=== PATIENT | female | born 1995 | race Hispanic/Latino ===

== ENCOUNTER 2020-11-19 07:11 | Emergency (ER) | payer OTHER ==
--- OUTSIDE RECORDS SUMMARY | 2020-11-19 07:14 | XMS REPORT | Continuity of Care Document ---
:1995 Author Organization [facility] t Address [address] [place] [address] Care Team Providers Name Role Phone DR Jett MCPHERSON Attending Clinician Unavailable Gerard Hagen Attending Clinician DR Nain HI Attending Clinician Unavailable DR Jett MCPHERSON Admitting Clinician Unavailable DR Nain HI Admitting Clinician Unavailable Problems This patient has no known problems. Allergies, Adverse Reactions, Alerts This patient has no known allergies or adverse reactions. Medications This patient has no known medications. Procedures This patient has no known procedures. Encounters Start End Encounter Admission Attending Care Care Encounter Source Date/Time Date/Time Type Type Clinicians Facility Department ID 2019-09-16 Inpatient C RAFAEL MCPHERSON [facility] [id number] [place] 07:00:00 [facility] 2019-09-19 2019-09-19 Emergency Ted Staples [facility] [id number] 19:55:06 22:07:00 Gerard Perez [id number] [place] [id number] [place] [id number] 2019-05-22 2019-05-21 Inpatient E [facility] MED [id number] [facility] 02:19:00 22:00:00 2019-05-16 2019-05-16 Outpatient [facility] [id number] [facility] 08:51:00 08:51:00 2019-04-16 2019-04-17 Emergency E RAFAEL HI [facility] [id number] [place] 23:25:00 02:35:00 [facility] Results Test Description Test Time Test Comments Results Result [facility] e Comments U/S PELVIS*WW* 2019-04-17 AFTER HOURS SERVICE ON: 02:28:09 04/17/2019 2:23 AMPelvic UltrasoundLocation Code [id number]: [id number]: Disorder of ovaryTRANSABDOMINAL ScanTechnique: Longitudinal and transverse real-time jennings scale, Doppler spectralanalysis and Doppler color flow evaluation was performed using a dedicatedtransducer. Transabdominal pelvis imaging is inherently limited for anatomicdetail without transvaginal imaging. Findings:The uterus measures 7 x 4 x 4 cm. Endometrial stripe measures 6 mm. Right ovarymeasures 66 x 43 x 65 mm with a 58 x 38 x 60 mm anechoic cyst. Left ovarymeasures 30 x 17 x 30 mm. Due to size of the right ovarian cyst, Dopplerevaluation was somewhat limited. Adequate ovarian flow with arterial inflow andvenous outflow noted. There is no free fluid. Impression:Anechoic 6.0 cm right ovarian cyst. This is likely benign. Follow-up isrecommended in [address] ABDOMEN AND 2019-04-17 CT SCAN OF THE ABDOMEN PELVIS WITHOUT 00:41:32 AND PELVIS WITHOUT CONTRAST *WW* CONTRASTDictation Location: [id number] HISTORY: 23-year-old with right upper quadrant painTECHNIQUE: Helical CT of the abdomen and pelvis was performed without IV ororal contrast without complication. Coronal and Sagittal reconstructions wereobtained. This exam was performed according to our departmental dose -optimizationprogram, which includes automatic exposure control, adjustment of mA and/or kVaccording to patient size and/or use of iterative reconstruction technique.DLP: 1219 mGY*cmFINDINGS:The visualized lung bases are clear. No evidence of pleural effusion. Liveris normal in size without intrahepatic biliary dilatation or focal mass. Thegallbladder is surgically absent. The spleen, and adrenal glands are normal. There is no evidence of hydronephrosis, solid renal mass or obstructingkidney stone. The pancreas is unremarkable without evidence of pancreatic mass,atrophy, calcification. There is no abdominal free fluid or adenopathy.The bowel is unremarkable without wall thickening or dilatation. There is noevidence of appendicitis, diverticulitis, colitis or bowel obstruction. Normalair-filled appendix is seen on coronal image 26.In the pelvis, there is no free fluid or adenopathy present. The bladder andureters are normal. There is a 4.5 cm cystic mass at the edge of the rightovary. Uterus and left ovary are unremarkable.The vascular, bony and muscular structures are unremarkable. IMPRESSION:4.5 cm right adnexal cystic mass is present. Pelvic ultrasound is recommended. AMYLASE AND LIPASE *WW* 2019-04-17 00:01:00 Test Item Value Reference Range Interpretation Comme nts AMYLASE (test code = 10A) 32 U/L 28-100 LIPASE (test code = 60A) 40 IU/L 73-393 L COMPREHENSIVE METABOLIC MAY *WW*2019-04-17 00:01:00 Test Item Value Reference Range Interpretation Comments GLUCOSE (test code = 06D) 89 mg/dL 75-100 SODIUM (test code = 01A) 138 mmol/L 136-145 POTASSIUM (test code = 01B) 3.6 mmol/L 3.6-5.1 CHLORIDE (test code = 04A) 108 mmol/L 98-107 H CO2 (test code = 02A) 24 mmol/L 22-32 ANION GAP (test code = ANG) 9.6 mmol/L BUN (test code = 05D) 7 mg/dL 7-18 CREATININE (test code = 03E) 0.7 mg/dL 0.4-1.1 BUN/CREA (test code = BCR) 10 12-20 L CALCIUM (test code = 09D) 8.5 mg/dL 8.3-9.5 BILI TOTAL (test code = 11A) 0.5 mg/dL 0.2-1.0 PROTEIN (test code = 07D) 7.6 g/dL 6.4-8.2 ALBUMIN (test code = 08D) 4.0 g/dL 3.5-4.8 GLOBULIN (test code = GLB) 3.6 g/dL 1.5-3.8 ALB/GLOB (test code = AGRR) 1.1 1.0-2.6 ALK PHOS (test code = 35A) 66 IU/L 42-121 AST (test code = 30A) 15 IU/L <=42 ALT (test code = 31A) 40 IU/L <=78 URINE MONOCLONAL *WW*2019-04-16 23:57:00 Test Item Value Reference Range Interpretation Comments PREG UR (test code = PGU) NEGATIVE NEGATIVE URINALYSIS 2019-04-16 23:57:00 Test Item Value Reference Range Interpretation Comments COLOR (test code = COLU) YELLOW YELLOW CLARITY (test code = CLA) CLEAR CLEAR GLUCOSE UR (test code = UA GLUCOSE) NEGATIVE NEGATIVE BILI UR (test code = BILE) NEGATIVE NEGATIVE KETONES UR (test code = SÁNCHEZ) NEGATIVE NEGATIVE SP GRAVITY (test code = SPGR) 1.025 1.005-1.030 PH UR (test code = PH) 6.0 4.5-8.0 PROTEIN UR (test code = PU) NEGATIVE NEGATIVE UROBIL UR (test code = UROQ) 1.0 EU/dL 0.2-1.0 NITRITE UR (test code = NITRITE) NEGATIVE NEGATIVE BLOOD UR (test code = UA BLOOD) NEGATIVE NEGATIVE LEUK ES UR (test code = LEUK) NEGATIVE NEGATIVE AUAM (test code = WAUAM) NO NO CBC (INCLUDES AUTOMATED DIFFERENTIAL)*[id number] 23:48:00 Test Item Value Reference Range Interpretation Comments WBC (test code = WBC) 7.9 10\S\3/uL 4.5-11.0 RBC (test code = RBC) 4.36 10\S\6/uL 4.30-5.70 HGB (test code = HBG) 12.8 g/dL 12.0-15.5 HCT (test code = HCT) 38.5 % 35.0-44.0 MCV (test code = MCV) 88.3 fL 81.0-99.0 MCH (test code = MCH) 29.4 pg 27.0-31.0 MCHC (test code = MCHC) 33.2 g/dL 32.0-36.0 RDW (test code = RDW) 12.4 % 11.5-14.5 PLT (test code = PLT) 280 10\S\3/uL 130-400 MPV (test code = MPV) 10.1 fL 9.4-12.4 NEUTROP # (test code = NE#) 4.8 10\S\3/uL 1.6-8.0 LYMPH # (test code = LY#) 2.2 10\S\3/uL 1.1-3.5 MONOCYTE # (test code = MO#) 0.6 10\S\3/uL 0.0-1.1 EOSINOPH # (test code = EO#) 0.2 10\S\3/uL 0.0-0.7 BASOPHIL # (test code = BA#) 0.1 10\S\3/uL 0.0-0.3 IG # (test code = IG#) 0.03 10\S\3/uL 0.00-0.06 NRBC # (test code = NRBC#) 0.00 10\S\3/uL 0.00-0.01 NEUTROPH % (test code = NE%) 60.4 % 35.0-73.0 LYMPH % (test code = LY%) 28.2 % 20.0-55.0 MONO % (test code = MO%) 7.6 % 2.5-10.0 EOSINOPH % (test code = EO%) 2.8 % 0.0-5.0 BASOPHIL % (test code = BA%) 0.6 % 0.0-2.0 IG % (test code = IG%) 0.4 % 0.0-0.8 NRBC% (test code = NRBC%) 0.0 % 0.0-0.2 MANDIFF (test code = WMDIFF) NO NO RBC MORPH (test code = NORMAL WRBCMOR)
--- NOTE | 2020-11-19 08:44 | EDPHYS ---
Physician Documentation [facility] Name: Omaira Richards Age: 25 yrs Sex: Female : 1995 Arrival Date: 11/19/2020 Time: 07:12 Bed 24 Private MD: ED Physician Ted Michelle HPI: 11/19 07:45 This 25 yrs old Female presents to ER via Unassigned with complaints of Fever, kdr Vomiting, Sore Throat. 07:45 The patient reports fever, not measured (subjective). Onset: The symptoms/episode kdr began/occurred gradually, 2 day(s) ago. Associated signs and symptoms: Pertinent positives: headache, nausea, sore throat, vomiting. Severity of symptoms: At their worst the symptoms were mild moderate just prior to arrival, in the emergency department the symptoms have improved mildly. The patient has not experienced similar symptoms in the past. The patient has not recently seen a physician. She has been feeling poorly for the last few days. She has not had any measured fever. She has had some nausea and vomiting which she describes as bilious. She has otherwise been stable.. 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 - Social history:: Smoking status: Reported history of juuling and/or vaping. ROS: 07:45 Constitutional: Negative for objective fever, chills, and weight loss -she has had kdr subjective fever and chills Eyes: Negative for injury, pain, redness, and discharge, ENT: Negative for injury, pain, and discharge, except for sore throat Neck: Negative for injury, pain, and swelling, Cardiovascular: Negative for chest pain, palpitations, and edema, Respiratory: Negative for shortness of breath, cough, wheezing, and pleuritic chest pain, Back: Negative for injury and pain, : Negative for injury, bleeding, discharge, and swelling, MS/Extremity: Negative for injury and deformity, Skin: Negative for injury, rash, and discoloration, Neuro: Negative for headache, weakness, numbness, tingling, and seizure activity. Psych: Negative for depression, anxiety, suicide ideation, homicidal ideation, and hallucinations, Allergy/Immunology: Negative for hives, rash, and allergies, Endocrine: Negative for neck swelling, polydipsia, polyuria, polyphagia, and marked weight changes, Hematologic/Lymphatic: Negative for swollen nodes, abnormal bleeding, and unusual bruising. 07:45 Abdomen/GI: Positive for nausea and vomiting, Negative for diarrhea, constipation, abdominal cramps, abdominal distension, anorexia, dysphagia, hematemesis, black/tarry stool, rectal pain, rectal bleeding, bowel incontinence, flatulence. Exam: 07:45 Constitutional: This is a well developed, well nourished patient who is awake, alert, kdr and in no acute distress. Head/Face: Normocephalic, atraumatic. Eyes: Pupils equal round and reactive to light, extra-ocular motions intact. Lids and lashes normal. Conjunctiva and sclera are non-icteric and not injected. Cornea within normal limits. Periorbital areas with no swelling, redness, or edema. ENT: Nares patent. No nasal discharge, no septal abnormalities noted. Tympanic membranes are normal and external auditory canals are clear. Oropharynx with no redness, swelling, or masses, exudates, or evidence of obstruction, uvula midline. Mucous membranes moist. Neck: Trachea midline, no thyromegaly or masses palpated, and no cervical lymphadenopathy. Supple, full range of motion without nuchal rigidity, or vertebral point tenderness. No Meningismus. Chest/axilla: Normal chest wall appearance and motion. Nontender with no deformity. No lesions are appreciated. Cardiovascular: Regular rate and rhythm with a normal S1 and S2. No gallops, murmurs, or rubs. Normal PMI, no JVD. No pulse deficits. Respiratory: Lungs have equal breath sounds bilaterally, clear to auscultation and percussion. No rales, rhonchi or wheezes noted. No increased work of breathing, no retractions or nasal flaring. Abdomen/GI: Soft, non-tender, with normal bowel sounds. No distension or tympany. No guarding or rebound. No evidence of tenderness throughout. Back: No spinal tenderness. No costovertebral tenderness. Full range of motion. Skin: Warm, dry with normal turgor. Normal color with no rashes, no lesions, and no evidence of cellulitis. MS/ Extremity: Pulses equal, no cyanosis. Neurovascular intact. Full, normal range of motion. Neuro: Awake and alert, GCS 15, oriented to person, place, time, and situation. Cranial nerves II-XII grossly intact. Motor strength 5/5 in all extremities. Sensory grossly intact. Cerebellar exam normal. Normal gait. Psych: Awake, alert, with orientation to person, place and time. Behavior, mood, and affect are within normal limits. Vital Signs: 08:11 BP 143 / 93; Pulse 106; Resp 14; Temp 98.9(O); Pulse Ox 100% on R/A; Weight 112.04 kg; ss Height 5 ft. 9 in. (175.26 cm); Pain 7/10; 08:11 Body Mass Index 36.48 (112.04 kg, 175.26 cm) ss MDM: 07:45 Data reviewed: vital signs, nurses notes, lab test result(s). Counseling: I had a kdr detailed discussion with the patient and/or guardian regarding: the historical points, exam findings, and any diagnostic results supporting the discharge/admit diagnosis, lab results, the need for outpatient follow up. 08:44 Patient medically screened. kdr 11/19 08:17 Order name: Influenza Screen (A ; Complete Time: 09:37 EDMS Administered Medications: No medications were administered Disposition Summary: 11/19/20 08:44 Discharge Ordered Location: Home kdr Problem: new kdr Symptoms: have improved kdr Condition: Stable kdr Diagnosis - Viral syndrome, nausea, vomiting, pharyngitis kdr Followup: kdr - With: Private Physician - When: 2 - 3 days - Reason: If symptoms return, Further diagnostic work-up, Recheck today's complaints, Continuance of care, Re-evaluation by your physician Discharge Instructions: - Discharge Summary Sheet kdr - Nausea and Vomiting, Adult, Rhal-ao-Eqvc kdr - COVID-19 Frequently Asked Questions kdr - Viral Illness, Adult kdr - COVID-19: Quarantine vs. Isolation - [facility] kdr Forms: - Medication Reconciliation Form kdr - Thank You Letter kdr Prescriptions: - Zofran 4 mg Oral Tablet - take 1 tablet by ORAL route every 4-6 hours As needed; 12 tablet; Refills: 0, kdr Product Selection Permitted Signatures: Dispatcher [employer] Ted Zendejas MD MD kdr Kaylie Harris, NICK RN ss
--- NOTE | 2020-11-19 08:44 | ER ---
Nurse's Notes [facility] Name: Omaira Richards Age: 25 yrs Sex: Female : 1995 Arrival Date: 11/19/2020 Time: 07:12 Bed 24 Private MD: Diagnosis: Viral syndrome, nausea, vomiting, pharyngitis Presentation: 11/19 08:11 Chief complaint: Patient states: SWAIN, N/V, chills and sore throat that began 1-2 days ss ago. Coronavirus screen: Client presents with at least one sign or symptom that may indicate coronavirus-19. Standard/surgical mask placed on the client. Provider contacted for isolation considerations. Ebola Screen: Patient denies exposure to infectious person. Patient denies travel to an Ebola-affected area in the 21 days before illness onset. Initial Sepsis Screen: Does the patient meet any 2 criteria? No. Patient's initial sepsis screen is negative. Does the patient have a suspected source of infection? No. Patient's initial sepsis screen is negative. Risk Assessment: Do you want to hurt yourself or someone else? Patient reports no desire to harm self or others. Onset of symptoms was November 17, 2020. 08:11 Method Of Arrival: Ambulatory ss 08:11 Acuity: LEWIS 4 ss Triage Assessment: 08:38 General: Appears in no apparent distress. Behavior is calm, cooperative, appropriate tr6 for age. Pain: Complains of pain in throat. EENT: No deficits noted. Neuro: No deficits noted. Cardiovascular: No deficits noted. Respiratory: No deficits noted. GI: Reports nausea, vomiting. : No deficits noted. Derm: No deficits noted. Musculoskeletal: No deficits noted. 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 - Social history:: Smoking status: Reported history of juuling and/or vaping. Screenin:38 Abuse screen: Denies threats or abuse. Denies injuries from another. Nutritional tr6 screening: No deficits noted. Tuberculosis screening: No symptoms or risk factors identified. Fall Risk None identified. Assessment: 08:30 General: Appears in no apparent distress. comfortable, Behavior is calm, cooperative, tr6 appropriate for age. Pain:. 08:37 Reassessment: swabs completed and sent to lab. tr6 08:39 GI: Abdomen is obese. tr6 Vital Signs: 08:11 BP 143 / 93; Pulse 106; Resp 14; Temp 98.9(O); Pulse Ox 100% on R/A; Weight 112.04 kg; ss Height 5 ft. 9 in. (175.26 cm); Pain 7/10; 08:11 Body Mass Index 36.48 (112.04 kg, 175.26 cm) ED Course: 07:12 Patient arrived in ED. rg4 07:13 Ted Michelle MD is Attending Physician. kdr 07:43 Yemi Limon PA is PHCP. jr8 07:43 Yemi Limon PA is PHCP. jr8 08:12 Triage completed. ss 08:12 Arm band placed on left wrist. ss 08:30 Patria Seay, RN is Primary Nurse. tr6 08:38 Patient has correct armband on for positive identification. Bed in low position. Call tr6 light in reach. Side rails up X 1. 08:38 No provider procedures requiring assistance completed. Patient did not have IV access tr6 during this emergency room visit. Administered Medications: No medications were administered Outcome: 08:44 Discharge ordered by . kdr 09:16 Discharged to home ambulatory. tr6 09:16 Condition: good 09:16 Discharge instructions given to patient, Instructed on discharge instructions, follow up and referral plans. pt informed that we will call her with flu and COVID results ONLY if positive Demonstrated understanding of instructions, follow-up care, medications, Prescriptions given X 1. 09:17 Patient left the ED. tr6 Signatures: Ted Michelle MD MD kdr Kaylie Harris RN RN Yemi Limon PA PA Mary Kim Patria Rojas, NICK RN tr6
[2020-11-19 09:24] VITALS: BP 143/93; TEMP 98.9; O2SAT 100
== END 2020-11-19 09:17 | disposition home or self-care (01) ==
LOC: ER 07:11
DX: B34.9 Viral infection, unspecified (principal); J02.9 Acute pharyngitis, unspecified; Z20.822 Contact with and (suspected) exposure to COVID-19
CPT/HCPCS: 87804 ×2; 99282; U0003

== ENCOUNTER 2020-11-20 02:42 | Emergency (ER) | payer OTHER ==
--- OUTSIDE RECORDS SUMMARY | 2020-11-20 02:46 | XMS REPORT | Continuity of Care Document ---
:1995 Author Organization [facility] t Address [address] [place] [address] [address] [place] [address] Care Team Providers Name Role Phone DR [...] Department ID 2019-09-16 Inpatient C RAFAEL MCPHERSON RAD [id number] [place] 07:00:00 [facility] 2019-09-19 2019-09-19 Emergency Ted Staples [facility] [id number] 19:55:06 22:07:00 Gerard Perez [id number] [place] [id number] [place] [id number] 2019-05-22 2019-05-21 Inpatient E [facility] MED [id number] [facility] 02:19:00 22:00:00 2019-05-16 2019-05-16 Outpatient [facility] [id number] [facility] 08:51:00 08:51:00 2019-04-16 2019-04-[address] [facility] [id number] [place] 23:25:00 02:35:00 [facility] Results Test Description Test Time Test Comments Results Result [facility] e Comments U/S PELVIS*WW* 2019-04-17 AFTER HOURS SERVICE ON: 02:28:09 04/17/2019 2:23 AMPelvic UltrasoundLocation Code [id number]: [id number]: Disorder of ovaryTRANSABDOMINAL ScanTechnique: Longitudinal and transverse [...] AND PELVIS WITHOUT CONTRAST *WW* CONTRASTDictation Location: [id number] HISTORY: 23-year-old with right upper quadrant painTECHNIQUE: [...] (test code = PGU) NEGATIVE NEGATIVE URINALYSIS *WW*2019-04-16 23:57:00 Test Item Value Reference Range [...] = WAUAM) NO NO CBC (INCLUDES AUTOMATED DIFFERENTIAL)*[id number] 23:48:00 Test Item Value Reference Range Interpretation [...]
--- NOTE | 2020-11-20 05:01 | ER ---
Nurse's Notes [facility] Name: Omaira Richards Age: 25 yrs Sex: Female : 1995 Arrival Date: 11/20/2020 Time: 02:45 Bed DIS1 Private MD: Diagnosis: Exudative pharyngitis, tonsillitis Presentation: 11/20 03:27 Chief complaint: Patient states: she was seen here this morning and tested for Covid bb which was negative but her complaint was a sore throat which was not addressed. Coronavirus screen: At this time, the client does not indicate any symptoms associated with coronavirus-19. Ebola Screen: No symptoms or risks identified at this time. Initial Sepsis Screen: Does the patient meet any 2 criteria? No. Patient's initial sepsis screen is negative. Does the patient have a suspected source of infection? No. Patient's initial sepsis screen is negative. Risk Assessment: Do you want to hurt yourself or someone else? Patient reports no desire to harm self or others. Onset of symptoms was November 17, 2020. 03:27 Method Of Arrival: Ambulatory bb 03:27 Acuity: LEWIS 4 bb Triage Assessment: 03:29 General: Appears in no apparent distress. Behavior is calm, cooperative. Pain: bb Complains of pain in throat Pain currently is 10 out of 10 on a pain scale. EENT: Throat is reddened has patchy exudate has enlarged tonsils. Neuro: Level of Consciousness is awake, alert, obeys commands, Oriented to person, place, time, situation. Cardiovascular: Capillary refill < 3 seconds Patient's skin is warm and dry. Respiratory: Respiratory effort is even, unlabored. GI: No signs and/or symptoms were reported involving the gastrointestinal system. Derm: Skin is pink, warm \T\ dry. Musculoskeletal: Circulation, motion, and sensation intact. 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 - Social history:: Smoking status: Reported history of juuling and/or vaping. Patient uses alcohol, occasionally. Patient/guardian denies using street drugs. Screenin:56 Abuse screen: Denies threats or abuse. Nutritional screening: No deficits noted. bb Tuberculosis screening: No symptoms or risk factors identified. Fall Risk None identified. Assessment: 04:56 Reassessment: Patient is alert, oriented x 3, equal unlabored respirations, skin bb warm/dry/pink. see triage assessment. 05:10 Reassessment: Patient is alert, oriented x 3, equal unlabored respirations, skin bb warm/dry/pink. pt verbalized understanding of and agrees to plan of care discharge instructions given pt ambulated with steady gait to exit. Vital Signs: 03:27 BP 133 / 73; Pulse 104; Resp 16; Temp 99.4(O); Pulse Ox 98% on R/A; Weight 112.04 kg bb (R); Height 5 ft. 9 in. (175.26 cm) (R); Pain 10/10; 03:27 Body Mass Index 36.48 (112.04 kg, 175.26 cm) ED Course: 02:45 Patient arrived in ED. 03:29 Triage completed. bb 03:29 Arm band placed on Patient placed in waiting room, Patient notified of wait time. Labs bb ordered per protocol. Family accompanied patient. 04:41 Miguel Laguerre MD is Attending Physician. [facility] 04:56 Radha Hagen RN is Primary Nurse. bb 04:56 Patient has correct armband on for positive identification. bb 05:12 No provider procedures requiring assistance completed. Patient did not have IV access bb during this emergency room visit. Administered Medications: 04:57 Drug: Tylenol 1000 mg Route: PO; bb 05:12 Follow up: Response: Medication administered at discharge. bb Outcome: 05:01 Discharge ordered by . [facility] 05:13 Discharged to home ambulatory, with family. bb 05:13 Condition: stable 05:13 Discharge instructions given to patient, Instructed on discharge instructions, follow up and referral plans. medication usage, Demonstrated understanding of instructions, follow-up care, medications, Prescriptions given X 2. 05:13 Patient left the ED. bb Signatures: Radha Hagen RN RN Miguel Yang MD MD [facility] Sindhu Rivera
--- NOTE | 2020-11-20 05:01 | EDPHYS ---
Physician Documentation [facility] Name: Omaira Richards Age: 25 yrs Sex: Female : 1995 Arrival Date: 11/20/2020 Time: 02:45 Bed DIS1 Private MD: ED Physician Miguel Laguerre HPI: 11/20 04:40 This 25 yrs old Female presents to ER via Ambulatory with complaints of Fever, mh7 Swollen Glands. 04:40 The patient presents with sore throat. The patient describes throat pain as constant. mh7 Onset: The symptoms/episode began/occurred 2 day(s) ago. 04:40 Severity of symptoms: At their worst the symptoms were moderate, yesterday, in the [facility] emergency department the symptoms are unchanged. Modifying factors: The symptoms are alleviated by nothing, Did not take medication the symptoms are aggravated by swallowing, Patient's oral intake status: good. Associated signs and symptoms: Pertinent positives: earache, Sore throat Pertinent negatives chest pain, chills, cough, diarrhea, flu-like symptoms, headache, nausea, rhinorrhea, shortness of breath, vomiting. The patient has been recently seen at the [facility] Emergency Department, yesterday. 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 - Social history:: Smoking status: Reported history of juuling and/or vaping. Patient uses alcohol, occasionally. Patient/guardian denies using street drugs. ROS: 04:40 Constitutional: Negative for fever, chills, and weight loss, Eyes: Negative for injury, mh7 pain, redness, and discharge, Neck: Negative for injury, pain, and swelling, Cardiovascular: Negative for chest pain, palpitations, and edema, Respiratory: Negative for shortness of breath, cough, wheezing, and pleuritic chest pain, Abdomen/GI: Negative for abdominal pain, nausea, vomiting, diarrhea, and constipation, Back: Negative for injury and pain, : Negative for injury, bleeding, discharge, and swelling, MS/Extremity: Negative for injury and deformity, Skin: Negative for injury, rash, and discoloration, Neuro: Negative for headache, weakness, numbness, tingling, and seizure, Psych: Negative for depression, anxiety, suicide ideation, homicidal ideation, and hallucinations, Allergy/Immunology: Negative for hives, rash, and allergies, Endocrine: Negative for neck swelling, polydipsia, polyuria, polyphagia, and marked weight changes. Exam: 04:40 Constitutional: This is a well developed, well nourished patient who is awake, alert, mh7 and in no acute distress. Head/Face: Normocephalic, atraumatic. Eyes: Pupils equal round and reactive to light, extra-ocular motions intact. Lids and lashes normal. Conjunctiva and sclera are non-icteric and not injected. Cornea within normal limits. Periorbital areas with no swelling, redness, or edema. 04:40 Neck: Trachea midline, no thyromegaly or masses palpated, and no cervical lymphadenopathy. Supple, full range of motion without nuchal rigidity, or vertebral point tenderness. No Meningismus. Chest/axilla: Normal chest wall appearance and motion. Nontender with no deformity. No lesions are appreciated. Cardiovascular: Regular rate and rhythm with a normal S1 and S2. No gallops, murmurs, or rubs. Normal PMI, no JVD. No pulse deficits. Respiratory: Lungs have equal breath sounds bilaterally, clear to auscultation and percussion. No rales, rhonchi or wheezes noted. No increased work of breathing, no retractions or nasal flaring. Abdomen/GI: Soft, non-tender, with normal bowel sounds. No distension or tympany. No guarding or rebound. No evidence of tenderness throughout. Back: No spinal tenderness. No costovertebral tenderness. Full range of motion. Skin: Warm, dry with normal turgor. Normal color with no rashes, no lesions, and no evidence of cellulitis. MS/ Extremity: Pulses equal, no cyanosis. Neurovascular intact. Full, normal range of motion. Neuro: Awake and alert, GCS 15, oriented to person, place, time, and situation. Cranial nerves II-XII grossly intact. Motor strength 5/5 in all extremities. Sensory grossly intact. Cerebellar exam normal. Normal gait. Psych: Awake, alert, with orientation to person, place and time. Behavior, mood, and affect are within normal limits. 04:40 ENT: External ear(s): are unremarkable, Ear canal(s): are normal, clear, TM's: are normal, Nose: is normal, Mouth: is normal, Posterior pharynx: Airway: normal, Tonsils: bilaterally enlarged, with erythema, with exudate, Uvula: normal, swelling, is not appreciated, erythema, that is moderate, exudate, that is mild, peritonsillar mass, is not appreciated, pooling of secretions, is not appreciated, Dental exam: normal, Voice: is normal. Vital Signs: 03:27 BP 133 / 73; Pulse 104; Resp 16; Temp 99.4(O); Pulse Ox 98% on R/A; Weight 112.04 kg bb (R); Height 5 ft. 9 in. (175.26 cm) (R); Pain 10/10; 03:27 Body Mass Index 36.48 (112.04 kg, 175.26 cm) bb MDM: 04:40 Differential diagnosis: group A strep tonsillitis, pharyngitis, tonsillitis, uvulitis, mh7 viral syndrome. Data reviewed: vital signs, nurses notes, lab test result(s), Rapid strep negative. Data interpreted: Pulse oximetry: on room air is 98 %. Interpretation: normal. Counseling: I had a detailed discussion with the patient and/or guardian regarding: the historical points, exam findings, and any diagnostic results supporting the discharge/admit diagnosis, lab results, the need for outpatient follow up, to return to the emergency department if symptoms worsen or persist or if there are any questions or concerns that arise at home. Response to treatment: the patient's symptoms have markedly improved after treatment. 05:01 Patient medically screened. mh7 11/20 03:25 Order name: Strep 11/20 03:25 Order name: Group A Streptococcus Rapid Sc; Complete Time: 04:42 EDMS 11/20 03:57 Order name: Throat Culture EDMS Administered Medications: 04:57 Drug: Tylenol 1000 mg Route: PO; adry 05:12 Follow up: Response: Medication administered at discharge. Disposition Summary: 11/20/20 05:01 Discharge Ordered Location: Home [facility] Problem: new mh7 Symptoms: have improved [facility] Condition: Stable [facility] Diagnosis - Exudative pharyngitis, tonsillitis [facility] Followup: [facility] - With: Private Physician - When: 1 - 2 days - Reason: Worsening of condition, Recheck today's complaints, Continuance of care, Re-evaluation by your physician Discharge Instructions: - Discharge Summary Sheet [facility] - Tonsillitis, Tswb-[id number] [facility] - Pharyngitis, Bolr-iv-Biro [facility] Forms: - Medication Reconciliation Form [facility] - Thank You Letter [facility] - Antibiotic Education [facility] - Prescription Opioid Use [facility] Prescriptions: - penicillin V potassium 500 mg Oral tablet - take 1 tablet by ORAL route 2 times per day for 10 days; 20 tablet; Refills: 0, [facility] Product Selection Permitted - Ibuprofen 800 mg Oral Tablet - take 1 tablet by ORAL route every 8 hours As needed take with food; 15 tablet; [facility] Refills: 0, Product Selection Permitted Signatures: Dispatcher [employer] Radha Bonilla RN RN bb Holmes, Maurice, MD MD [facility]
[2020-11-20] MEDS ORDERED: ACETAMINOPHEN 500 MG TAB ONE (05:21)
[2020-11-20 05:23] VITALS: BP 133/73; TEMP 99.4; O2SAT 98
== END 2020-11-20 05:13 | disposition home or self-care (01) ==
LOC: ER 02:42
DX: J03.90 Acute tonsillitis, unspecified (principal)
CPT/HCPCS: 87070; 87081; 99283

== ENCOUNTER 2021-09-14 15:44 | Emergency (ER) | payer OTHER, SELFPAY ==
--- OUTSIDE RECORDS SUMMARY | 2021-09-14 15:55 | XMS REPORT | Continuity of Care Document ---
:1995 Author Organization [facility] t Address [facility] [place] [address] Care Team Providers Name Role Phone Lyric FRANKS Primary Care Physician Unavailable DR Jett MCPHERSON Attending Clinician Unavailable Tra FORDE S Attending Clinician Gerard Hagen Attending Clinician Gerard STAPLES Attending Clinician Unavailable DR Nain HI Attending Clinician Unavailable DR Jett MCPHERSON Admitting Clinician Unavailable Gerard STAPLES Admitting Clinician Unavailable DR Nain HI Admitting Clinician Unavailable Payers Payer Name Policy Type Policy Number Effective Date Expiration Date S ource Problems Condition Condition Condition Status Onset Resolution Last Treating Co mments Source Name Details Category Date Date Treatment Clinician Date No known No known Disease Unive rs active active ity of problems problems [facility] Allergies, Adverse Reactions, Alerts Allergy Allergy Status Severity Reaction(s) Onset Inactive Treating Comm ents Source Name Type Date Date Clinician No Known DA Active Unknown 2010-04 [facility] Allergie 0-09 Medical s 00:00: Center 00 NO KNOWN Drug Active Univers ALLERGIE Class ity of S [facility] Social History Social Habit Start Date Stop Date Quantity Comments Source Exposure to Not sure [facility] SARS-CoV-2 (event) Medica l Branch Sex Assigned At [address] 1995 [facility] 00:00:00 00:00:00 Medical Branch Smoking Status Start Date Stop Date Source Unknown if ever smoked [facility] Medications Ordered Filled Start Stop Current Ordering Indication Dosage Frequency Signature Comments Components Source Medication Medication Date Date Medication? Clinician (SIG) Name Name No known No Univers medications [facility] Vital Signs Vital Name Observation Time Observation Value Comments Source Systolic blood 2020-11-22 07:35:00 139 mm[Hg] Univer sity of pressure [facility] Diastolic blood 2020-11-22 07:35:00 94 mm[Hg] [facility] Heart rate 2020-11-22 07:35:00 73 /min Universi ty of [facility] Respiratory rate 2020-11-22 07:35:00 20 /min Univ ersity [facility] Oxygen saturation in 2020-11-22 07:35:00 98 /min University of Arterial blood by [place] [employer] Pulse oximetry Branch Body temperature 2020-11-22 02:14:[address] [facility] ersity of [facility] Body height 2020-11-22 02:14:00 175.3 cm Universi ty of [facility] Body weight 2020-11-22 02:14:00 112.038 kg Universi ty of [facility] BMI 2020-11-22 02:14:00 36.48 kg/m2 Universi ty of [facility] Systolic blood 2019-09-20 02:52:00 136 mm[Hg] Univer [facility] Diastolic blood 2019-09-20 02:52:00 82 mm[Hg] [facility] Heart rate 2019-09-20 02:52:00 70 /min Universi ty of [facility] Body temperature 2019-09-20 02:52:[address] [facility] Respiratory rate 2019-09-20 02:52:00 18 /min Univ ersity [facility] Oxygen saturation in 2019-09-20 02:52:00 100 /min University of Arterial blood by [place] [facility] [employer] jan Pulse oximetry Branch Body height 2019-09-20 00:51:00 175.3 cm Universi ty of [facility] Body weight 2019-09-20 00:51:00 112.492 kg [facility]i [facility] [place] [facility] BMI 2019-09-20 00:51:00 36.62 kg/m2 Universi ty of [facility] Branch Systolic blood 2019-09-20 02:52:00 136 mm[Hg] Univer [facility] Diastolic blood 2019-09-20 02:52:00 82 mm[Hg] Unive rsity of pressure [facility] Heart rate 2019-09-20 02:52:00 70 /min [facility] Body temperature 2019-09-20 02:52:[address] [facility] Respiratory rate 2019-09-20 02:52:00 18 /min [facility] Oxygen saturation in 2019-09-20 02:52:00 100 /min [facility] Arterial blood by [facility] Pulse oximetry Branch Body height 2019-09-20 00:51:00 175.3 cm [facility] Body weight 2019-09-20 00:51:00 112.492 kg [facility] BMI 2019-09-20 00:51:00 36.62 kg/m2 [facility] Height 2019-04-16 23:25:00 152.4 CM Weight 2019-04-16 23:25:00 106.14 KG Procedures Procedure Date / Time Performed Performing Clinician Sour e EBV-MONONUCLEOSIS 2020-11-22 06:03:[address] [facility] SCREEN Medical Branch RAPID STREP SCREEN 2020-11-22 05:40:00 Thomas Dutta [facility] FOR GROUP A Medical Branch NOTICE OF PRIVACY 2020-11-22 02:08:29 Doctor Unassigned, No Univ ersity [facility] Medical Branch CONSENT/REFUSAL FOR 2020-11-22 02:07:36 Doctor Unassigned, No [facility] [place] DIAGNOSIS AND Name Medical Branch TREATMENT CONSENT/REFUSAL FOR 2020-11-22 02:07:32 Doctor Unassigned, No [facility] [place] DIAGNOSIS AND Name Medical Branch TREATMENT CT HEAD WO CONTRAST 2019-09-20 02:12:31 Ted Staples [facility] POCT TEST 2019-09-20 01:54:00 Ted Staples [facility] NOTICE OF PRIVACY 2019-09-20 00:45:56 Doctor Unassigned, No Univ ersity of [facility] Name Medical Branch CONSENT/REFUSAL FOR 2019-09-20 00:45:32 Doctor Unassigned, No [facility] [place] DIAGNOSIS AND Name Medical Branch TREATMENT Encounters Start End Encounter Admission Attending Care Care Encounter Source Date/Time Date/Time Type Type Clinicians Facility Department ID 2019-09-16 Inpatient C [facility] [id number] [facility] 07:00:00 [facility] 2020-11-21 2020-11-22 Emergency Tra [facility] [id number] Univers 21:16:00 03:30:00 Preethilily Carlos Chris [id number] ity [facility] [id number] [facility] [id number] [place] [address] Branch 2020-11-21 2020-11-21 Emergency X [place] ERT [id number] Univers 21:05:00 21:05:00 ity [facility] 2019-09-19 2019-09-19 Emergency Ted Staples [facility] [id number] Univers 19:55:06 22:07:00 T Chris [id number] i ty [facility] [id number] [facility] [id number] [address] 2019-09-19 2019-09-19 Emergency X TED STAPLES [facility] ERT [id number] Univers 19:55:06 22:07:00 ity [facility] 2019-09-19 2019-09-19 Emergency Ted Staples [facility] [id number] 19:55:06 22:07:00 Gerard Perez [id number] [place] [id number] [place] [id number] [facility] 2019-05-22 2019-05-21 Inpatient E [facility] MED [id number] [facility] 02:19:00 22:00:00 2019-05-16 2019-05-16 Outpatient [facility] [id number] [facility] 08:51:00 08:51:00 2019-04-16 2019-04-17 Emergency E [facility] WWC [id number] [facility] 23:25:00 02:35:00 [facility] Results Test Description Test Time Test Comments Results Result Comments Source EBV-MONONUCLEOSIS SCREEN 2020-11-22 06:45:54 Test Item Value Reference Range Interpretation Comme nts EBV Mononucleosis Screen (test code = 2750586104) Negative Nega tive Lab Interpretation (test code = 19865-9) Normal [facility] FOR GROUP [id number] 06:25:29 Test Item Value Reference Range Interpretation Comments Streptococcus pyogenes (group A) Negative Negative antigen (test code = 44948-2) Lab Interpretation (test code = Normal 40465-4) [facility] WO [id number] 02:36:[address] headCT HEAD WO CONTRAST HISTORY: Female 24 years Head trauma, headache COMPARISON: None TECHNIQUE: Routine CT head without contrast FINDINGS: The ventricles and cerebral sulci are normal incaliber and configuration.No hydrocephalus, midline shift or pathological extra-axial fluidcollection is present. The basal cisterns are unremarkable. No acute intracranial hemorrhage or mass effect ispresent. The jennings-whitematter differentiation is preserved. No parenchymal attenuation abnormalityispresent. The calvarium and skull base are unremarkable. The mastoid air cells andvisualized paranasal air sinuses are clear. [facility], Radiant Results Inft User - 09/19/2019 9:37 PM CDTCT HEAD WO CONTRASTHISTORY: Female 24 years Head trauma, headache COMPARISON: NoneTECHNIQUE: Routine CT head without contrastFINDINGS:The ventricles and cerebral sulci are normal in caliber and configuration.No hydrocephalus, midline shift or pathological extra-axial fluidcollection is present. The basal cisterns are unremarkable.No acute intracranial hemorrhage or mass effect is present. The jennings-whitematter differentiation is preserved. No parenchymal attenuation abnormalityis present.The calvarium and skull base areunremarkable. The mastoid air cells andvisualized paranasal air sinuses are clear.IMPRESSIONNormal CT headUnHouston [facility] HospitalPOCT [id number] 01:54:00 Test Item Value Reference Range Interpretation Comments POCT PREG (test code = 1605) negative On board controls acceptable with yes C Line (test code = 3574) POCT PREG LOT # (test code = 3575) [id number] POCT PREG TEST DATE (test 11/14/2020 code = 3576) Lab Interpretation (test code = Normal 90245-6) [facility] PELVIS*WW*2019-04-17 02:28:09AFTER HOURS SERVICE ON: 04/17/2019 2:23 AMPelvic UltrasoundLocation Code [id number]: [id number]: Disorderof ovaryTRANSABDOMINAL ScanTechnique: Longitudinal and transverse real- time jennings scale, Doppler spectralanalysis and Doppler color flow evaluation was performed using a dedicatedtransducer. Transabdominal pelvis imaging is inherently limited for anatomicdetail without transvaginal imaging. Findings:The uterus measures 7 x 4 x 4 cm. Endometrial stripe measures 6 mm. Right ovarymeasures 66 x 43 x 65 mmwith a 58 x 38 x 60 mm anechoic cyst. Left ovarymeasures 30 x 17 x 30 mm. Due to size of the right ovarian cyst, Dopplerevaluation was somewhat limited. Adequate ovarian flow with arterial inflow andvenous outflow noted. There is no free fluid. Impression:Anechoic 6.0 cm right ovarian cyst. This is likely benign. Follow-up isrecommended in [address] ABDOMEN AND PELVIS WITHOUT CONTRAST 2019-04-17 00:41:32CT SCAN OF THE ABDOMEN AND PELVIS WITHOUT CONTRASTDictation Location: [id number] HISTORY: 23-year-old with right upper quadrant painTECHNIQUE: Helical CT of the abdomen and pelvis was performed without IV ororal contrast without complication. Coronal and Sagittal reconstructions wereobtained. This exam was performed according to our departmental dose -optimizationprogram, which includes aut omatic exposure control, adjustment of mA and/or kVaccording to patient size and/or use of iterativereconstruction technique.DLP: 1219 mGY*cmFINDINGS:The visualized lung bases are [...] cystic mass is present. Pelvic ultrasound is recommended.AMYLASE AND LIPASE 2019-04-17 00:01:00 Test Item Value Reference Range Interpretation Comments AMYLASE (test code = 10A) 32 U/L [...] = WAUAM) NO NO CBC (INCLUDES AUTOMATED DIFFERENTIAL)*[id number] 23:48:00 Test Item Value Reference Range Interpretation [...]
[2021-09-14 16:50] LABS: Urine Blood Trace-lysed (Negative); Urine Glucose Negative (Negative); Urine Protein 2+ (Negative); Urine Specific Gravity >=1.030 (1.005-1.030)
[2021-09-14 17:17] LABS: Absolute Lymphocytes (CBC) 0.6 K/uL (0.7-4.9); Hematocrit 43.5 % (36.0-45.0); Lymphocytes % 5.2 % (15.3-44.8); MPV 8.4 fL (7.6-11.3); RBC Red Blood Cell Count 5.04 M/uL (3.86-4.86)
[2021-09-14 17:32] LABS: Bilirubin Total 0.8 mg/dL (0.2-1.0); Potassium 3.9 mmol/L (3.5-5.1); Protein, Total 8.1 g/dL (6.4-8.2)
--- NOTE | 2021-09-14 17:42 | RAD REPORT ---
EXAM DESCRIPTION: CTAbdomen Pelvis W Contrast - 09/14/2021 5:33 pm CLINICAL HISTORY: Abdominal pain. R flank and RLQ pain COMPARISON: <Comparisons> TECHNIQUE: Biphasic CT imaging of the abdomen and pelvis was performed with 100 ml non-ionic IV cont rast. All CT scans are performed using dose optimization technique as appropriate and may include automated exposure control or mA/KV adjustment according to patient size. FINDINGS: The lung bases are clear. The liver demonstrates diffuse fatty infiltration. Cholecystectomy. Spleen, pancreas, adrenal glands and kidneys are within normal limits. No bowel obstruction, free air, free fluid or abscess. The appendix is normal. No evidence of signi ficant lymphadenopathy. No suspicious bony findings. IMPRESSION: No acute intra-abdominal or pelvic finding. Diffuse fatty liver.
[2021-09-14] MEDS ORDERED: NA CHLORIDE 0.9% 1,000 ML ONE (18:19)
[2021-09-14] MEDS ORDERED: MORPHINE 4 MG/ML SYR ONE (18:19)
[2021-09-14] MEDS ORDERED: ONDANSETRON 4 MG/2 ML VIAL ONE (18:19)
--- NOTE | 2021-09-14 18:47 | ER ---
Nurse's Notes [facility] Name: Omaira Richards Age: 26 yrs Sex: Female : 1995 Arrival Date: 09/14/2021 Time: 15:47 Bed 10 Private MD: Diagnosis: Nausea with vomiting, unspecified;Abdominal pain, unspecified Presentation: 09/14 16:13 Chief complaint: Patient states: RUQ pain since this morning. N/V/Chills. Coronavirus ld1 screen: At this time, the client does not indicate any symptoms associated with coronavirus-19. Ebola Screen: No symptoms or risks identified at this time. Initial Sepsis Screen: Does the patient meet any 2 criteria? No. Patient's initial sepsis screen is negative. Does the patient have a suspected source of infection? No. Patient's initial sepsis screen is negative. Risk Assessment: Do you want to hurt yourself or someone else? Patient reports no desire to harm self or others. Onset of symptoms was September 14, 2021. 16:13 Method Of Arrival: Ambulatory ld1 16:13 Acuity: LEWIS 3 ld1 Triage Assessment: 16:14 General: Appears in no apparent distress. comfortable, Behavior is calm, cooperative, ld1 appropriate for age. Pain: Complains of pain in right upper quadrant Pain does not radiate. Pain currently is 10 out of 10 on a pain scale. Quality of pain is described as throbbing. EENT: No signs and/or symptoms were reported regarding the EENT system. Neuro: Level of Consciousness is awake, alert, obeys commands, Oriented to person, place, time, situation. Cardiovascular: Capillary refill < 3 seconds Patient's skin is warm and dry. Respiratory: Airway is patent Respiratory effort is even, unlabored. GI: Abdomen is round non-distended, Reports upper abdominal pain, nausea, vomiting. IT COORDINATOR: 16:14 LMP N/A - Irregular menses ld1 Historical: - Allergies: 16:14 No Known Allergies; ld1 - PMHx: 16:14 Ovarian cyst; ld1 - PSHx: 16:14 Cholecystectomy; ld1 - Immunization history:: Adult Immunizations up to date, Client reports receiving the 2nd dose of the Covid vaccine. - Social history:: Smoking status: Patient denies any tobacco usage or history of. Patient/guardian denies using alcohol. Screenin:06 Abuse screen: Denies threats or abuse. Denies injuries from another. Nutritional ld1 screening: No deficits noted. Tuberculosis screening: No symptoms or risk factors identified. Fall Risk None identified. Assessment: 19:06 Reassessment: Patient appears in no apparent distress at this time. Patient and/or ld1 family updated on plan of care and expected duration. Pain level reassessed. Patient is alert, oriented x 3, equal unlabored respirations, skin warm/dry/pink. Vital Signs: 16:13 BP 118 / 76; Pulse 98; Resp 18; Temp 98.6(TE); Pulse Ox 99% on R/A; Weight 123.38 kg; ld1 Height 5 ft. 9 in. (175.26 cm); Pain 9/10; 19:06 BP 123 / 79; Pulse 86; Resp 18; Pulse Ox 99% on R/A; ld1 16:13 Body Mass Index 40.17 (123.38 kg, 175.26 cm) ld1 ED Course: 15:47 Patient arrived in ED. am2 15:56 Marine Richmond FNP is PHCP. jh7 15:56 Neeraj Dutta DO is Attending Physician. jh7 16:14 Triage completed. ld1 16:14 Arm band placed on right wrist. ld1 17:07 Inserted saline lock: 20 gauge in right antecubital area, using aseptic technique. Blood collected. 17:07 CBC with Diff Sent. zm 17:07 CMP Sent. zm 17:07 Lipase Sent. zm 17:18 Claire Ballesteros, RN is Primary Nurse. iw 17:34 CT Abd/Pelvis - IV Contrast Only In Process Unspecified. EDMS 18:46 Dl Yates MD is Referral Physician. 7 19:06 Patient has correct armband on for positive identification. Placed in gown. Bed in low ld1 position. Call light in reach. Side rails up X2. compliance monitor on. Pulse ox on. NIBP on. Door closed. Noise minimized. Warm blanket given. 19:06 No provider procedures requiring assistance completed. IV discontinued, intact, ld1 bleeding controlled, No redness/swelling at site. Administered Medications: 18:10 Drug: NS 0.9% 1000 ml Route: IV; Rate: 1 bolus; Site: right antecubital; iw 18:10 Drug: Zofran (Ondansetron) 4 mg Route: IVP; Site: right antecubital; iw 18:10 Drug: morphine 4 mg Route: IVP; Infused Over: 4 mins; Site: right antecubital; iw Medication: 19:06 VIS not applicable for this client. ld1 Outcome: 18:46 Discharge ordered by . [email or web address] 19:06 Discharged to home ambulatory. ld1 19:06 Condition: stable 19:06 Discharge instructions given to patient, Instructed on discharge instructions, follow up and referral plans. medication usage, Demonstrated understanding of instructions, follow-up care, medications, Prescriptions given X 1. 19:07 Patient left the ED. ld1 Signatures: Dispatcher [employer] EDClaire Li RN RN Sandra Spence Lauren, RN RN ld1 Lynn Arreguin Jennifer, OIL PLANT OPERATOR OIL PLANT OPERATOR [facility]
--- NOTE | 2021-09-14 18:47 | EDPHYS ---
Physician Documentation [facility] Name: Omaira Richards Age: 26 yrs Sex: Female : 1995 Arrival Date: 09/14/2021 Time: 15:47 Bed 10 Private MD: ED Physician Neeraj Dutta HPI: 09/14 16:15 This 26 yrs old Female presents to ER via Ambulatory with complaints of jh7 Abdominal Pain, chills, Vomiting. 16:15 Onset: The symptoms/episode began/occurred this morning. The symptoms radiate to the jh7 right flank. Associated signs and symptoms: Pertinent positives: nausea and vomiting, Pertinent negatives: diarrhea, fever, headache. Patient presents with right lower quadrant pain radiating to right flank, chills, and vomiting since this morning. Denies fever or any urinary symptoms. She denies any medical problems.. 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 - Social history:: Smoking status: Patient denies any tobacco usage or history of. Patient/guardian denies using alcohol. ROS: 16:15 ENT: Negative for injury, pain, and discharge, Neck: Negative for injury, pain, and jh7 swelling, Cardiovascular: Negative for chest pain, palpitations, and edema, Respiratory: Negative for shortness of breath, cough, wheezing, and pleuritic chest pain, Back: Negative for injury and pain. 16:15 Skin: Negative for injury, rash, and discoloration, Neuro: Negative for headache, weakness, numbness, tingling, and seizure. 16:15 Constitutional: Positive for chills, Negative for body aches, fever. 16:15 Abdomen/GI: Positive for abdominal pain, nausea and vomiting, Negative for diarrhea. 16:15 : Positive for flank pain, Negative for urinary symptoms. 16:15 All other systems are negative. Exam: 16:15 Constitutional: This is a well developed, well nourished patient who is awake, alert, jh7 and in no acute distress. Neck: Trachea midline, no thyromegaly or masses palpated, and no cervical lymphadenopathy. Supple, full range of motion without nuchal rigidity, or vertebral point tenderness. No Meningismus. Cardiovascular: Regular rate and rhythm with a normal S1 and S2. No gallops, murmurs, or rubs. Normal PMI, no JVD. No pulse deficits. Respiratory: Lungs have equal breath sounds bilaterally, clear to auscultation and percussion. No rales, rhonchi or wheezes noted. No increased work of breathing, no retractions or nasal flaring. Back: No spinal tenderness. No costovertebral tenderness. Full range of motion. Skin: Warm, dry with normal turgor. Normal color with no rashes, no lesions, and no evidence of cellulitis. Neuro: Awake and alert, GCS 15, oriented to person, place, time, and situation. Sensory grossly intact. Normal gait. 16:15 Abdomen/GI: Inspection: abdomen appears normal, Bowel sounds: normal, Palpation: soft, mild abdominal tenderness, in the right upper quadrant. 16:15 : CVA tenderness, on the right. Vital Signs: 16:13 BP 118 / 76; Pulse 98; Resp 18; Temp 98.6(TE); Pulse Ox 99% on R/A; Weight 123.38 kg; ld1 Height 5 ft. 9 in. (175.26 cm); Pain 9/10; 19:06 BP 123 / 79; Pulse 86; Resp 18; Pulse Ox 99% on R/A; ld1 16:13 Body Mass Index 40.17 (123.38 kg, 175.26 cm) ld1 MDM: 17:06 Patient medically screened. [facility] 19:00 Differential diagnosis: diverticulitis, gastritis, Pyelonephritis, urinary tract jh7 infection. Data reviewed: vital signs, nurses notes, lab test result(s), EKG, radiologic studies, CT scan. Data interpreted: Pulse oximetry: is 99 %. Interpretation: normal. 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 ED course: The patient remained hemodynamically stable throughout the ER visit. Her symptoms significantly improved after medication administration. Reviewed her labs and her nonacute findings noted on the CT. Advised her to follow-up with GI regarding her elevated liver enzymes/fatty liver. If the patient develops any new concerning symptoms, she may return to the ER for further eval. The patient understood the plan of care.. 09/14 16:12 Order name: CBC with Diff; Complete Time: 17:20 ld1 09/14 16:12 Order name: CMP; Complete Time: 17:44 ld1 09/14 16:12 Order name: Lipase; Complete Time: 17:44 ld1 09/14 16:29 Order name: CT Abd/Pelvis - IV Contrast Only; Complete Time: 17:45 jh7 09/14 16:50 Order name: Urine Dipstick-Ancillary; Complete Time: 17:01 EDMS 09/14 16:12 Order name: IV Saline Lock; Complete Time: 17:07 ld1 09/14 16:12 Order name: Labs collected and sent; Complete Time: 17:07 ld1 09/14 16:12 Order name: Urine Dipstick-Ancillary (obtain specimen); Complete Time: 17:18 ld1 09/14 16:12 Order name: Urine Test (obtain specimen); Complete Time: 17:18 ld1 Administered Medications: 18:10 Drug: NS 0.9% 1000 ml Route: IV; Rate: 1 bolus; Site: right antecubital; iw 18:10 Drug: Zofran (Ondansetron) 4 mg Route: IVP; Site: right antecubital; iw 18:10 Drug: morphine 4 mg Route: IVP; Infused Over: 4 mins; Site: right antecubital; iw Disposition: 22:07 Co-signature as Attending Physician, Neeraj LIZ was immediately available on-site ms3 in the Emergency Department for consultation in the care of the patient. . Disposition Summary: 09/14/21 18:46 Discharge Ordered Location: Home [facility] Problem: new jh7 Symptoms: have improved jh7 Condition: Stable jh7 Diagnosis - Nausea with vomiting, unspecified jh7 - Abdominal pain, unspecified jh7 Followup: 7 - With: Dl Yates MD - When: 2 - 3 days - Reason: Recheck today's complaints Discharge Instructions: - Discharge Summary Sheet jh7 - Abdominal Pain, Adult jh7 - Nausea and Vomiting, Adult jh7 Forms: - Medication Reconciliation Form jh7 - Thank You Letter jh7 Prescriptions: - ondansetron 4 mg Oral tablet,disintegrating - take 1 tablet by ORAL route 4 times per day As needed; 20 tablet; Refills: 0, jh7 Product Selection Permitted Signatures: Dispatcher [employer] Claire Crabtree RN RN iw Neeraj Dutta DO DO ms3 Leonor Borden RN RN ld1 Marine Richmond, BUSINESS SUPPORT COORDINATOR BUSINESS SUPPORT COORDINATOR jh7
[2021-09-14 19:17] VITALS: TEMP 98.6; O2SAT 99
[2021-09-14 19:18] VITALS: BP 123/79
== END 2021-09-14 19:07 | disposition home or self-care (01) ==
LOC: ER 15:44
DX: R10.31 Right lower quadrant pain (principal); R11.2 Nausea with vomiting, unspecified
CPT/HCPCS: 36415; 74177; 80053; 81003; 83690; 85025; 96374; 96375; 99284; J2405; J7030; Q9967

== ENCOUNTER 2022-05-05 08:19 | Emergency (ER) | payer SELFPAY ==
--- OUTSIDE RECORDS SUMMARY | 2022-05-05 08:22 | XMS REPORT | Continuity of Care Document ---
:1995 Author Organization [facility] t Address [address] [place] [address] [address] [place] [address] Care Team Providers Name Role Phone GOLDEN ALFONSO Gunter Primary Care Physician Unavailable DR ELSIE MCPHERSON Attending Clinician Unavailable Thomas Dutta MD Attending Clinician aCrlo Hagen Attending Clinician CARLO STAPLES Attending Clinician Unavailable DR MAHSA HI Attending Clinician Unavailable DR ELSIE MCPHERSON Admitting Clinician Unavailable CARLO STAPLES Admitting Clinician Unavailable DR MAHSA HI Admitting Clinician Unavailable Payers Payer Name Policy Type Policy Number Effective Date Expiration Date S ource Problems Condition Condition Condition Status Onset Resolution Last Treating Co mments Source Name Details Category Date Date Treatment Clinician Date No known No known Disease Unive rs active active ity of problems problems [facility] Allergies, Adverse Reactions, Alerts Allergy Allergy Status Severity Reaction(s) Onset Inactive Treating Comm ents Source Name Type Date Date Clinician No Known DA Active Unknown 2010-04 [facility] All[facility]ie 0-09 Medical s 00:00: Center 00 NO KNOWN Drug Active Univers ALLERGIE Class ity of [facility] Social History Social Habit Start Date Stop Date Quantity Comments Source Exposure to Not sure [facility] SARS-CoV-2 (event) Medica l Branch Sex Assigned [birth year] [facility] 00:00:00 00:00:00 Medical Branch Smoking Status Start Date Stop Date Source Unknown if ever smoked [facility] [place] [facility] [place] Medications Ordered Filled Start Stop Current Ordering Indication Dosage Frequency Signature Comments Components Source Medication Medication Date Date Medication? Clinician (SIG) Name Name No known No Univers medications [facility] Vital Signs Vital Name Observation Time Observation Value Comments Source Systolic blood 2020-11-22 07:35:00 139 mm[Hg] Univer sity of pressure [facility] Diastolic blood 2020-11-22 07:35:00 94 mm[Hg] Unive rsity of pressure [facility] Heart rate 2020-11-22 07:35:00 73 /min [facility] [place] [facility] Respiratory rate 2020-11-22 07:35:00 20 /min Univ ersity of [facility] Oxygen saturation in 2020-11-22 07:35:00 98 /min University of Arterial blood by [place] [employer] [facility] Pulse oximetry Branch Body temperature 2020-11-22 02:14:00 37.06 Bonnie Univ ersity of [facility] Body height 2020-11-22 02:14:00 175.3 cm [facility] [place] [facility] [place] Body weight 2020-11-22 02:14:00 112.038 kg [facility] [place] [facility] BMI 2020-11-22 02:14:00 36.48 kg/m2 [facility] [place] [facility] Systolic blood 2019-09-20 02:52:00 136 mm[Hg] Univer sity of [facility] [place] Diastolic blood 2019-09-20 02:52:00 82 mm[Hg] Unive rsity of [facility] Heart rate 2019-09-20 02:52:00 70 /min [facility] [place] [facility] Body temperature 2019-09-20 02:52:00 37 Bonnie Univ ersity of [facility] Branch Respiratory rate 2019-09-20 02:52:00 18 /min [facility] [place] [facility] Oxygen saturation in 2019-09-20 02:52:00 100 /min [facility] Arterial blood by [place] [employer] jan Pulse oximetry Branch Body height 2019-09-20 00:51:00 175.3 cm [facility] [place] [facility] Body weight 2019-09-20 00:51:00 112.492 kg [facility] [place] [facility] BMI 2019-09-20 00:51:00 36.62 kg/m2 [facility] [place] [facility] Systolic blood 2019-09-20 02:52:00 136 mm[Hg] Univer sity of pressure [facility] Diastolic blood 2019-09-20 02:52:00 82 mm[Hg] Unive rsity of pressure [facility] Heart rate 2019-09-20 02:52:00 70 /[facility] 2019-09-20 02:52:00 37 Bonnie [facility] Respiratory rate 2019-09-20 02:52:00 18 /min [facility] Oxygen saturation in 2019-09-20 02:52:00 100 /min [facility] Arterial blood by [facility] Pulse oximetry [place] Body height 2019-09-20 00:51:00 175.3 cm [facility] Body weight 2019-09-20 00:51:00 112.492 kg [facility] BMI 2019-09-20 00:51:00 36.62 kg/m2 [facility] Height 2019-04-16 23:25:00 152.4 CM Weight 2019-04-16 23:25:00 106.14 KG Procedures Procedure Date / Time Performed Performing Clinician Sour e EBV-MONONUCLEOSIS 2020-11-22 06:03:00 Thomas Dutta [facility] SCREEN Medical Branch RAPID STREP SCREEN 2020-11-22 05:40:00 Thomas Dutta [facility] FOR GROUP A Medical Branch NOTICE OF PRIVACY 2020-11-22 02:08:29 Doctor Unassigned, No [facility] CONSENT/REFUSAL FOR 2020-11-22 02:07:36 Doctor Unassigned, No Un [facility] [place] DIAGNOSIS AND Name Medical Branch TREATMENT CONSENT/REFUSAL FOR 2020-11-22 02:07:32 Doctor Unassigned, No Un [facility] [place] DIAGNOSIS AND Name Medical Branch TREATMENT CT HEAD WO CONTRAST 2019-09-20 02:12:31 Carlo Staples [facility] POCT TEST 2019-09-20 01:54:00 Carlo Staples [facility] NOTICE OF PRIVACY 2019-09-20 00:45:56 Doctor Unassigned, No Univ ersity of [facility] Medical Branch CONSENT/REFUSAL FOR 2019-09-20 00:45:32 Doctor Unassigned, No Un [facility] DIAGNOSIS AND Name Medical Branch TREATMENT Encounters Start End Encounter Admission Attending Care Care Encounter Source Date/Time Date/Time Type Type Clinicians Facility Department ID 2019-09-16 Inpatient C [place] [facility] RAD [id number] [facility] 07:00:00 [facility] 2020-11-21 2020-11-22 Emergency Tra [facility] [id number] Univers 21:16:00 03:30:00 Thomas Gonzalez [place] [id number] [facility] [place] [id number] [facility] [id number] [address] 2020-11-21 2020-11-21 Emergency X [facility] ERT [id number] Univers 21:05:00 21:05:00 ity of [facility] 2019-09-19 2019-09-19 Emergency Canelo Staplesin [facility] [id number] 19:55:06 22:07:00 T [address] [place] [id number] [place] [id number] [place] [id number] [facility] 2019-09-19 2019-09-19 Emergency Carlo Staples [facility] [id number] Univers 19:55:06 22:07:00 T [place] [id number] i [facility] [place] [id number] [place] [id number] 2019-09-19 2019-09-19 Emergency X CARLO STAPLES [facility] ERT [id number] Univers 19:55:06 22:07:00 ity of [facility] 2019-05-22 2019-05-21 Inpatient E [facility] MED [id number] [facility] 02:19:00 22:00:00 2019-05-16 2019-05-16 Outpatient [facility] [id number] [facility] 08:51:00 08:51:00 2019-04-16 2019-04-17 Emergency E SUSSY [facility] [id number] [facility] 23:25:00 02:35:00 [facility] Results Test Description Test Time Test Comments Results Result Comments Source EBV-MONONUCLEOSIS SCREEN 2020-11-22 06:45:54 Test Item Value Reference Range Interpretation Comme nts EBV Mononucleosis Screen (test code = 3253032775) Negative Nega tive Lab Interpretation (test code = 19476-7) Normal [facility] STREP SCREEN FOR GROUP [id number] 06:25:29 Test Item Value Reference Range Interpretation Comments Streptococcus pyogenes (group A) Negative Negative antigen (test code = 93719-7) Lab Interpretation (test code = Normal 67034-7) [facility] HEAD WO [id number] 02:36:[address] headCT HEAD WO CONTRAST HISTORY: Female 24 years Head trauma, headache COMPARISON: None TECHNIQUE: Routine CT head without contrast FINDINGS: The ventricles and cerebral sulci are normal in caliber and configuration.No hydrocephalus, midline shift or pathological extra-axial fluidcollectionis present. The basal cisterns are unremarkable. No acute intracranial hemorrhage or mass effect is present. The jennings-whitematter differentiation is preserved. No parenchymal attenuation abnormalityis present. The calvarium and skull base are unremarkable. The mastoid air cells andvisualized paranasalair sinuses are clear. [facility], Radiant Results Inft [...] attenuation abnormalityis present.The calvarium and skull base are unremarkable. The mastoid air cells andvisualized paranasal air sinuses are clear.IMPRESSIONNormal CT headUnLake Granbury Medical CenterPORI [id number] 01:54:00 Test Item Value Reference Range Interpretation Comments POCT PREG (test code = 1605) negative On board controls acceptable with yes C Line (test code = 3574) POCT PREG LOT # (test code = 3575) [id number] POCT PREG TEST DATE (test 11/14/2020 code = 3576) Lab Interpretation (test code = Normal 60050-4) [facility]2019-04-17 02:28:09AFTER HOURS SERVICE ON: 04/17/2019 2:23 AMPelvic UltrasoundLocation Code [id number]: [id number]: Disorderof ovaryTRANSABDOMINAL ScanTechnique: Longitudinal and transverse real- [...] THE ABDOMEN AND PELVIS WITHOUT CONTRASTDictation Location: [id number] HISTORY: 23-year-old with right upper quadrant painTECHNIQUE: [...] abdominal free fluid or adenopathy.The bowel is unr emarkable without wall thickening or dilatation. There is [...] present. Pelvic ultrasound is recommended.AMYLASE AND LIPASE *WW*2019-04-17 00:01:00 Test Item Value Reference Range [...] = WAUAM) NO NO CBC (INCLUDES AUTOMATED DIFFERENTIAL)*[id number] 23:48:00 Test Item Value Reference Range Interpretation [...]
[2022-05-05] MEDS ORDERED: ASPIRIN 81 MG CHEWABLE TABLET ONE (08:32)
[2022-05-05 08:59] LABS: Hematocrit 38.5 % (36.0-45.0); Lymphocytes % 28.3 % (15.3-44.8); MCV 85.8 fL (80-100); MPV 8.1 fL (7.6-11.3); RBC Red Blood Cell Count 4.49 M/uL (3.86-4.86)
[2022-05-05 09:06] LABS: Magnesium 2.4 mg/dL (1.6-2.4); Potassium 3.8 mmol/L (3.5-5.1); Troponin High Sensitivity 4.3 pg/mL (<58.9)
--- NOTE | 2022-05-05 09:08 | RAD REPORT ---
EXAM DESCRIPTION: RAD - Chest Single View - 05/05/2022 9:00 am CLINICAL HISTORY: CHEST PAINleft side COMPARISON: None TECHNIQUE: AP portable chest image was obtained 05/05/2022 9:00 am . FINDINGS: Lung volumes are low. No focal lung parenchymal process seen. No failure or volume overloa d. Heart and vasculature are normal. No measurable pleural effusion and no pneumothorax. No acute bony abnormality seen. No acute aortic findings suspected. IMPRESSION: No acute cardiopulmonary process.
[2022-05-05 09:31] LABS: Urine Blood Negative (Negative); Urine Glucose Negative (Negative); Urine Protein Trace (Negative)
--- NOTE | 2022-05-05 10:00 | RAD REPORT ---
EXAM DESCRIPTION: CT - Chest For Pe Angio - 05/05/2022 9:46 am CLINICAL HISTORY: chest pain, shortness of breath, d-dimer COMPARISON: Chest Single View dated 05/05/2022 TECHNIQUE: Dynamically enhanced 3 mm thick images of the chest were obtained during administration o f approximately 150mL Isovue 370 IV contrast. Coronal and oblique MIP reconstruction images were gene rated and reviewed. Exam utilizes a protocol to evaluate the pulmonary arterial tree. All CT scans are performed using dose optimization technique as appropriate and may include automated exposure control or mA/KV adjustment according to patient size. FINDINGS: No pulmonary emboli are identified. The aorta as imaged shows no acute or suspicious finding. No pericardial thickening or effusion. No infiltrate or mass in the lung parenchyma. No pleural effusion or pleural thickening. No mediastinal or hilar suspicious masses. No chest wall masses or abnormal axillary lymphadenopathy. Partially imaged liver shows prominent size and fatty infiltration. IMPRESSION: No pulmonary emboli identified. No other significant or suspicious chest finding. Liver is only partially imaged but appears to be enlarged and fatty infiltrated.
--- NOTE | 2022-05-05 10:03 | EDPHYS ---
Physician Documentation [facility] Name: Omaira Richards Age: 27 yrs Sex: Female : 1995 Arrival Date: 05/05/2022 Time: 08:21 Bed 6 Private MD: ED Physician Ted Michelle HPI: 05/05 12:56 This 27 yrs old Female presents to ER via Ambulatory with complaints of Chest kb Pain. 12:56 The patient or guardian reports chest pain that is located primarily in the chest kb diffusely. The pain radiates to the left shoulder. Associated signs and symptoms: Pertinent positives: shortness of breath. The chest pain is described as pinching. Duration: The patient or guardian reports multiple episodes, that are intermittent, with no pattern. Modifying factors: The symptoms are alleviated by nothing. the symptoms are aggravated by nothing. Severity of pain: At its worst the pain was moderate in the emergency department the pain has improved. The patient has not experienced similar symptoms in the past. The patient has not recently seen a physician. Pt reports intermittent chest pain all week. States the pinching pain was worse last night while at work so she came to get checked out. HAT MODEL: 10:11 LMP N/A - control method ll1 Historical: - Allergies: 08:31 No Known Allergies; iw - PMHx: 08:24 Ovarian cyst; ph - PSHx: 08:24 Cholecystectomy; ph 08:31 right ovary removed; iw - Immunization history:: Adult Immunizations up to date. - Social history:: Smoking status: Patient denies any tobacco usage or history of. ROS: 09:47 Constitutional: Negative for fever, chills, and weight loss. kb 09:47 Cardiovascular: Positive for chest pain. 09:47 Respiratory: Positive for shortness of breath. 09:47 All other systems are negative. Exam: 09:47 Constitutional: This is a well developed, well nourished patient who is awake, alert, kb and in no acute distress. Head/Face: Normocephalic, atraumatic. ENT: Moist Mucous membranes Cardiovascular: Regular rate and rhythm with a normal S1 and S2. No gallops, murmurs, or rubs. No pulse deficits. Respiratory: Respirations even and unlabored. No increased work of breathing. Talking in full sentences Abdomen/GI: Soft, non-tender. No distention Skin: Warm, dry with normal turgor. Normal color. MS/ Extremity: Pulses equal, no cyanosis. Neurovascular intact. Full, normal range of motion. Neuro: Awake and alert, GCS 15, oriented to person, place, time, and situation. Moves all extremities. Normal gait. Psych: Awake, alert, with orientation to person, place and time. Behavior, mood, and affect are within normal limits. 09:47 ECG was reviewed by the Attending Physician. Vital Signs: 08:30 BP 149 / 98; Pulse 89; Resp 16; Temp 97.9; Pulse Ox 98% on R/A; Weight 144.24 kg; iw Height 5 ft. 9 in. (175.26 cm); Pain 5/10; 09:09 BP 119 / 83; Pulse 80; Resp 18; Pulse Ox 98% on R/A; ph 10:11 BP 125 / 85; Pulse 67; Resp 16; Pulse Ox 98% ; Pain 2/10; ll1 08:30 Body Mass Index 46.96 (144.24 kg, 175.26 cm) iw MDM: 08:22 Patient medically screened. kb 12:58 Differential diagnosis: abnormal EKG, acute myocardial infarction, coronary artery kb disease pleurisy, pneumonia, pulmonary embolus. Data reviewed: vital signs, nurses notes. Consideration of Admission/Observation Escalation of care including admission/observation considered. I considered the following discharge prescriptions or medication management in the emergency department I discussed and recommended Over The Counter medications. Counseling: I had a detailed discussion with the patient and/or guardian regarding: the historical points, exam findings, and any diagnostic results supporting the discharge/admit diagnosis, lab results, radiology results, the need for outpatient follow up, a family practitioner, to return to the emergency department if symptoms worsen or persist or if there are any questions or concerns that arise at home. 05/05 08:26 Order name: Basic Metabolic Panel; Complete Time: :12 kb 05/05 08:26 Order name: CBC with Diff; Complete Time: : kb 05/05 08:26 Order name: D-Dimer; Complete Time: 09:12 kb 05/05 08:26 Order name: Magnesium; Complete Time: : kb 05/05 08: Order name: NT PRO-BNP; Complete Time: 09:12 kb 05/05 08:26 Order name: Troponin HS; Complete Time: 09:12 kb 05/05 08:26 Order name: XRAY Chest (1 view); Complete Time: 09:12 kb 05/05 08:26 Order name: EKG; Complete Time: 08:27 kb 05/05 08:26 Order name: Cardiac monitoring; Complete Time: 08:31 kb 05/05 08:26 Order name: EKG - Nurse/Tech; Complete Time: 08:31 kb 05/05 09:12 Order name: CT Chest For PE Angio; Complete Time: 10:01 kb 05/05 09:31 Order name: Urine Dipstick-Ancillary; Complete Time: 09:42 EDMS 05/05 09:33 Order name: Urine --Ancillary (enter results); Complete Time: 09:55 kj1 05/05 08:26 Order name: IV Saline Lock; Complete Time: 08:41 kb 05/05 08:26 Order name: Labs collected and sent; Complete Time: 08:41 kb 05/05 08:26 Order name: O2 Per Protocol; Complete Time: 08:28 kb 05/05 08:26 Order name: O2 Sat Monitoring; Complete Time: 08:28 kb EC:47 Rate is 69 beats/min. Rhythm is regular. QRS [place] is Normal. IL interval is normal at kb 154 msec. QRS interval is normal at 84 msec. QT interval is normal at 430 msec. Administered Medications: 08:31 Drug: Aspirin Chewable Tablet 324 mg Route: PO; ll1 10:11 Follow up: Response: No adverse reaction ll1 Disposition: 12:36 Co-signature as Attending Physician, Ted Michelle MD I agree with the assessment and kdr plan of care. Disposition Summary: 05/05/22 10:03 Discharge Ordered Location: Home kb Condition: Stable kb Diagnosis - Chest pain, unspecified kb Followup: kb - With: Emergency Department - When: As needed - Reason: Worsening of condition Followup: kb - With: Private Physician - When: 2 - 3 days - Reason: Recheck today's complaints, Continuance of care, Re-evaluation by your physician Discharge Instructions: - Discharge Summary Sheet kb - Nonspecific Chest Pain, Adult, [id number] kb Forms: - Medication Reconciliation Form kb - Thank You Letter kb - Antibiotic Education kb - Prescription Opioid Use kb - Work release form sb4 Signatures: Dispatcher [employer] Estephania Lema, CUSTOM STUDIO COORDINATOR-C CUSTOM STUDIO COORDINATOR-Ckb Ted Michelle MD MD kdr Williams, Irene RN RN Yashira Nash RN RN robbin Bishop, Jayden, RN RN ll1
--- NOTE | 2022-05-05 10:03 | ER ---
Nurse's Notes [facility] Name: Omaira Richards Age: 27 yrs Sex: Female : 1995 Arrival Date: 05/05/2022 Time: 08:21 Bed 6 Private MD: Diagnosis: Chest pain, unspecified Presentation: 05/05 08:26 Chief complaint: Patient states: left sided chest pain and into left shoulder, iw intermittent, pinching , worse on exertion, got worse last night. Coronavirus screen: At this time, the client does not indicate any symptoms associated with coronavirus-19. Ebola Screen: Patient negative for fever greater than or equal to 101.5 degrees Fahrenheit, and additional compatible Ebola Virus Disease symptoms Patient denies exposure to infectious person. Patient denies travel to an Ebola-affected area in the 21 days before illness onset. No symptoms or risks identified at this time. Initial Sepsis Screen: Does the patient meet any 2 criteria? No. Patient's initial sepsis screen is negative. Does the patient have a suspected source of infection? No. Patient's initial sepsis screen is negative. Risk Assessment: Do you want to hurt yourself or someone else? Patient reports no desire to harm self or others. Onset of symptoms was May 02, 2022. 08:26 Method Of Arrival: Ambulatory iw 08:26 Acuity: LEWIS 3 iw CAUL PULLER: 10:11 LMP N/A - control method ll1 Historical: - Allergies: 08:31 No Known Allergies; iw - PMHx: 08:24 Ovarian cyst; ph - PSHx: 08:24 Cholecystectomy; ph 08:31 right ovary removed; iw - Immunization history:: Adult Immunizations up to date. - Social history:: Smoking status: Patient denies any tobacco usage or history of. Screenin:24 [facility] ED Fall Risk Assessment (Adult) History of falling in the last 3 months, ph including since admission No falls in past 3 months (0 pts) Confusion or Disorientation No (0 pts) Intoxicated or Sedated No (0 pts) Impaired Gait No (0 pts) Mobility Assist Device Used No (0 pt) Altered Elimination No (0 pt) Score/Fall Risk Level 0 - 2 = Low Risk Oriented to surroundings, Maintained a safe environment, Hourly rounding (assess needs \T\ fall precautionary measures) done. Abuse screen: Denies threats or abuse. Denies injuries from another. Nutritional screening: No deficits noted. Tuberculosis screening: No symptoms or risk factors identified. Assessment: 08:30 Musculoskeletal: Circulation, motion, and sensation intact. Capillary refill < 3 ll1 seconds, Reports pain in left arm. 08:41 General: Appears in no apparent distress. Behavior is calm, cooperative, appropriate ll1 for age. Pain: Complains of pain in chest Pain radiates to left arm Pain began 1 day ago. Cardiovascular: Reports chest pain. 08:42 Reassessment: No changes from previously documented assessment. Patient and/or family ll1 updated on plan of care and expected duration. Pain level reassessed. Patient is alert, oriented x 3, equal unlabored respirations, skin warm/dry/pink. 09:06 Reassessment: No changes from previously documented assessment. Patient and/or family ll1 updated on plan of care and expected duration. Pain level reassessed. Patient is alert, oriented x 3, equal unlabored respirations, skin warm/dry/pink. 09:40 Reassessment: No changes from previously documented assessment. Patient and/or family ll1 updated on plan of care and expected duration. Pain level reassessed. Patient is alert, oriented x 3, equal unlabored respirations, skin warm/dry/pink. 10:11 Reassessment: No changes from previously documented assessment. Patient and/or family ll1 updated on plan of care and expected duration. Pain level reassessed. Patient is alert, oriented x 3, equal unlabored respirations, skin warm/dry/pink. Patient states feeling better. Vital Signs: 08:30 BP 149 / 98; Pulse 89; Resp 16; Temp 97.9; Pulse Ox 98% on R/A; Weight 144.24 kg; iw Height 5 ft. 9 in. (175.26 cm); Pain 5/10; 09:09 BP 119 / 83; Pulse 80; Resp 18; Pulse Ox 98% on R/A; ph 10:11 BP 125 / 85; Pulse 67; Resp 16; Pulse Ox 98% ; Pain 2/10; ll1 08:30 Body Mass Index 46.96 (144.24 kg, 175.26 cm) iw Vitals: 09:09 Cardiac Rhythm Assessment Sinus rhythm. ph ED Course: 08:21 Patient arrived in ED. rg4 08:22 Estephania Marquez FNP-C is [facility]. kb 08:22 Ian Ashley MD is Attending Physician. kb 08:22 Yashira Nash, RN is Primary Nurse. ph 08:25 Patient has correct armband on for positive identification. Bed in low position. Call ph light in reach. Side rails up X 1. Client placed on continuous cardiac and pulse oximetry monitoring. NIBP monitoring applied. Door closed. Noise minimized. Warm blanket given. 08:27 Triage completed. iw 08:27 Attending Physician role handed off by Ian Ashley MD [email or web address] 08:27 Ted Michelle MD is Attending Physician. kj1 08:30 Arm band placed on. iw 08:35 Inserted saline lock: 22 gauge in right antecubital area, using aseptic technique. ll1 Blood collected. Patient maintains SpO2 saturation greater than 95% on room air. 08:36 EKG done, by ED staff, reviewed by Estephania ACEVEDO. em1 09:01 XRAY Chest (1 view) In Process Unspecified. EDMS 09:48 CT Chest For PE Angio In Process Unspecified. EDMS 10:11 No provider procedures requiring assistance completed. IV discontinued, intact, ll1 bleeding controlled, No redness/swelling at site. Pressure dressing applied. Administered Medications: 08:31 Drug: Aspirin Chewable Tablet 324 mg Route: PO; ll1 10:11 Follow up: Response: No adverse reaction ll1 Medication: 08:25 VIS not applicable for this client. ph Outcome: 10:03 Discharge ordered by MD. kb 10:11 Discharged to home ambulatory. ll1 10:11 Condition: stable 10:11 Discharge instructions given to patient, Instructed on discharge instructions, follow up and referral plans. Demonstrated understanding of instructions, follow-up care. 10:12 Patient left the ED. ll1 Signatures: Dispatcher [employer] EDMS Estephania Marquez FNP-C FNP-Claire Zhang, Sundar Liriano RN em1 Yashira Nash, Mary Martinez RN, ph rg4 Linda Marquez kj1 Jayden Bishop RN RN ll1
[2022-05-05 10:36] VITALS: TEMP 97.9; O2SAT 98
[2022-05-05 10:38] VITALS: BP 125/85
--- NOTE | 2022-05-06 17:35 | EKG ---
Test Date: 2022-05-05 Test Time: 08:32:29 Hairspring I Inspector: JE MEASUREMENT RESULTS: Intervals: Rate: 69 NE: 154 QRSD: 84 QT: 402 QTc: 430 [place]: P: 48 NE: 154 QRS: 42 T: 28 INTERPRETIVE STATEMENTS: Normal sinus rhythm Cannot rule out Anterior infarct, age undetermined Abnormal ECG No previous ECG available for comparison Electronically Signed On 05-06-22 17:32:07 SHEET CUTTING OPERATOR by Abhinav Cody
== END 2022-05-05 10:12 | disposition home or self-care (01) ==
LOC: ER 08:19
DX: R07.9 Chest pain, unspecified (principal)
CPT/HCPCS: 36415; 71045; 71275; 80048; 81003; 81025; 83735; 83880; 84484; 85025; 85379; 93005; Q9967

== ENCOUNTER → 2023-04-06 | Emergency (ER) | payer BC ==
[~2023-04-06] MED LIST: CIPROFLOXACIN 400mg IV 400 MG/200 ML BAG IV ONE; HYDROMORPHONE HCL 1 MG/ML INJ ONE; METRONIDAZOLE 500mg IVPB 500 MG/100 ML BAG IV ONE; NA CHLORIDE 0.9% 1,000 ML ONE; ONDANSETRON 4 MG/2 ML VIAL ONE
--- OUTSIDE RECORDS SUMMARY | 2023-04-06 21:08 | XMS REPORT | Continuity of Care Document ---
Author Name Unknown Address [address] [facility] [address] [place] [address] [facility] thconnect Address [address] [facility] [place] [address] Care Team Providers Care Manager [place] Name Role Phone ELSIE MCPHERSON Primary Care Physician DR ELSIE Lindsey Attending Clinician TYRA Fields Attending Clinician Eric Cancino MD, Tyra Attending Clinician [phone] Thomas Dutta MD Attending Clinician [phone] Ted Hagen Attending Clinician [phone] T[employer]APLES Attending Clinician DR MAHSA Short Attending Clinician DR ELSIE Mendoza Admitting Clinician TYRA Fields Admitting Clinician TED Dowell Admitting Clinician DR MAHSA Short Admitting Clinician Nasim busby Payers Payer Name Policy Type Policy Number Effective Date Expirati on Date Source [facility] - OUT OF STATE [id number] 2023 00:00:00 Problems Condition Name Condition Details Condition Category Status Onset Date Resolution Date Last Treatment Date Treating Clinician Comments Source Diverticul osis Diverticul osis Disease Active 2022-04 00:00: 00 [facility] Fatty liver Fatty liver Disease Active 2022-04 00:00: 00 [facility] No known active problems No known active problems Disease [facility] Allergies, Adverse Reactions, Alerts Allergy Name Allergy Type Status Severity Reaction(s) Onset Date Inactive Date Treating Clinician Comments Source No Known Allergie s DA Active Unknown 2010-04 00:00: 00 [facility] NO KNOWN ALLERGIE S Drug Class Active [facility] Social History Social Habit Start Date Stop Date Quantity Comments Source Exposure to SARS-CoV-2 (event) Not sure [facility] Sexual orientation U [facility] Sex Assigned At 1995 00:00:00 1995 00:00:00 [facility] Smoking Status Start Date Stop Date Source Tobacco smoking consumption unknown [facility] Medications Ordered Medication Name Filled Medication Name Start Date Stop Date Current Medication? Ordering Clinician Indication Dosage Frequency Signature (SIG) Comments Components Source acetaminoph en-codeine (TYLENOL #3) 300-30 mg tablet 1 tablet 2022-04 18:45: 00 02-21 18:38 :00 No 1{tbl} 1 tablet, Oral, ONCE, 1 dose, [facility]21[facility]23 [facility] 370-500 mL) injection 80 mL 2022-04 18:30: 00 02-21 18:30 :00 No [id number] 80mL 80 mL, Intravenou s, ONCE, 1 dose, On Mon02/21/23 at 1230, Routine [facility] ketorolac (TORADOL) injection 30 mg 2022-04 16:45: 00 02-21 16:17 :00 No 30mg 30 mg, Slow IV Push, ONCE, 1 dose, On Mon02/21/23 at 1045, [facility] NaCl 0.9% (NS) bolus infusion 1,000 mL 2022-04 16:15: 00 02-21 18:50 :00 No 1000mL at 999 mL/hr, 1,000 mL, IV Infusion, ONCE, 1 dose, On Mon02/21/23 at 1015, [facility] medroxyPROG ESTERone 5 mg tablet 2022-04 00:00: 00 Yes [id number] 100 5mg Take 1 tablet by mouth in the morning. For 5-10 days. Stop when bleeding stops. [facility] No known medications No [facility] Vital Signs Vital Name Observation Time Observation Value Comments S ource Heart rate 2023-02-21 18:38:00 66 /min [facility] Body temperature 2023-02-21 18:38:00 36.72 [facility] Oxygen saturation in Arterial blood by Pulse oximetry 2023-02-21 18:38:00 96 /min [facility] Systolic blood pressure 2023-02-21 17:50:00 124 mm[Hg] [facility] Diastolic blood pressure 2023-02-21 17:50:00 89 mm[Hg] [facility] Respiratory rate 2023-02-21 17:50:00 16 /min [facility] Body height 2023-02-21 14:35:00 175.3 cm [facility] Body weight 2023-02-21 14:35:00 148.326 kg [facility] BMI 2023-02-21 14:35:00 48.29 kg/m2 [facility] Systolic blood pressure 2020-11-22 07:35:00 139 mm[Hg] [facility] Diastolic blood pressure 2020-11-22 07:35:00 94 mm[Hg] [facility] Heart rate 2020-11-22 07:35:00 73 /min [facility] Respiratory rate 2020-11-22 07:35:00 20 /min [facility] Oxygen saturation in Arterial blood by Pulse oximetry 2020-11-22 07:35:00 98 /min [facility] Body temperature 2020-11-22 02:14:00 37.06 [facility] Body height 2020-11-22 02:14:00 175.3 cm [facility] Body weight 2020-11-22 02:14:00 112.038 kg [facility] BMI 2020-11-22 02:14:00 36.48 kg/m2 [facility] Oxygen saturation in Arterial blood by Pulse oximetry 2019-09-20 02:52:00 100 /min [facility] Systolic blood pressure 2019-09-20 02:52:00 136 mm[Hg] [facility] Diastolic blood pressure 2019-09-20 02:52:00 82 mm[Hg] [facility] Heart rate 2019-09-20 02:52:00 70 /min [facility] Body temperature 2019-09-20 02:52:00 37 [facility] Respiratory rate 2019-09-20 02:52:00 18 /min [facility] Body height 2019-09-20 00:51:00 175.3 cm [facility] Body weight 2019-09-20 00:51:00 112.492 kg [facility] BMI 2019-09-20 00:51:00 36.62 kg/m2 [facility] Oxygen saturation in Arterial blood by Pulse oximetry 2019-09-20 02:52:00 100 /min [facility] Systolic blood pressure 2019-09-20 02:52:00 136 mm[Hg] [facility] Diastolic blood pressure 2019-09-20 02:52:00 82 mm[Hg] [facility] Heart rate 2019-09-20 02:52:00 70 /min [facility] Body temperature 2019-09-20 02:52:00 37 [facility] Respiratory rate 2019-09-20 02:52:00 18 /min [facility] Body height 2019-09-20 00:51:00 175.3 cm [facility] Body weight 2019-09-20 00:51:00 112.492 kg [facility] BMI 2019-09-20 00:51:00 36.62 kg/m2 [facility] Height 2019-04-16 23:25:00 152.4 CM Weight 2019-04-16 23:25:00 106.14 KG Procedures Procedure Date / Time Performed Performing Clinicia n Source CT ABDOMEN PELVIS W CONTRAST 2023-02-21 17:35:33 Tyra Ruiz [facility] US OVARY TORSION 2023-02-21 16:22:48 Cecelia Ruiz [facility] POCT TEST 2023-02-21 15:31:00 Radha Ruiz [facility] COMP. METABOLIC PANEL ([id number]) 2023-02-21 15:24:00 Tyra Ruiz [facility] CBC WITH DIFF 2023-02-21 15:24:00 [facility] 2023-02-21 15:24:00 [facility]SENT/REFUSAL FOR DIAGNOSIS AND TREATMENT 2023-02-21 14:32:04 Doctor Unassigned, [facility] EBV-MONONUCLEOSIS SCREEN 2020-11-22 06:03:00 Thomas Dutta [facility] RAPID STREP SCREEN FOR GROUP A 2020-11-22 05:40:00 Thomas Dutta [facility] NOTICE OF PRIVACY PRACTICES 2020-11-22 02:08:29 Doctor Unassigned, [facility] CONSENT/REFUSAL FOR DIAGNOSIS AND TREATMENT 2020-11-22 02:07:36 Doctor Unassigned, [facility] CONSENT/REFUSAL FOR DIAGNOSIS AND TREATMENT 2020-11-22 02:07:32 Doctor Unassigned, [facility] CT HEAD WO CONTRAST 2019-09-20 02:12:31 Ted Staples [facility] POCT TEST 2019-09-20 01:54:00 Ted Staples [facility] NOTICE OF PRIVACY PRACTICES 2019-09-20 00:45:56 Doctor Unassigned, [facility] CONSENT/REFUSAL FOR DIAGNOSIS AND TREATMENT 2019-09-20 00:45:32 Doctor Unassigned, [facility] Encounters Start Date/Time End Date/Time Encounter Type Admission Type Attending [facility] Care Facility Care Department Encounter ID Source 2019-09-16 07:00:00 Inpatient C KYELSIE [facility] RAD [id number] [facility] 2023-02-21 08:38:00 2023-02-21 12:54:00 Emergency X TYRA RUIZ [facility] ERT [id number] [facility] 2023-02-21 08:38:00 2023-02-21 12:54:00 Emergency Tyra Ruiz [facility] [id number] [facility] 2020-11-21 21:16:00 2020-11-22 03:30:00 Emergency Thomas Dutta [facility] [id number] [facility] 2020-11-21 21:05:00 2020-11-21 21:05:00 Emergency X [facility] ERT [id number] [facility] 2019-09-19 19:55:06 2019-09-19 22:07:00 Emergency Ted Staples [facility] [id number] 2019-09-19 19:55:06 2019-09-19 22:07:00 Emergency Ted Staples [facility] [id number] [facility] 2019-09-19 19:55:06 2019-09-19 22:07:00 Emergency X TED STAPLES [facility] ERT [id number] [facility] 2019-05-22 02:19:00 2019-05-21 22:00:00 Inpatient E [id number] 2019-05-16 08:51:00 2019-05-16 08:51:00 Outpatient [facility] [id number] 2019-04-16 23:25:00 2019-04-17 02:35:00 Emergency E MAHSA HI [facility] [id number] [facility] Results Test Description Test Time Test Comments Results Result Co mments Source [facility] [id number] 06:45:54* Test Item Value Reference Range Interpretation Comme nts EBV Mononucleosis Screen (te st code = 2681992514) Negative Negative Lab Interpretation (test cod e = 48448-4) Normal [facility] S[facility] FOR GROUP [id number] 06:25:29* Test Item Value Reference Range Interpretation Comme nts Streptococcus pyogenes (grou p A) antigen (test code = 78117-9) Negative Negative Lab Interpretation (test cod e = 82261-4) Normal [facility] HEAD WO [id number] 02:36:34Normal CT headCT HEAD WO CONTRAST HISTORY: Female [...] - 09/19/2019 9:37 PM CDTCT HEAD WO CONTR ASTHISTORY: Female 24 years Head trauma, headache COMPARISON: NoneTECHNIQUE: Routine CT head without contrastFINDINGS:The ventricles and cerebral sulci are normal in caliber and configuration.No hydrocephalus, midline shift or pathological extra-axial fluidcollection is present. The basal cisterns are unremarkable.No acute intracranial hemorrhage or mass effect is present. The jennings-whitematter differentiation is preserved. No parenchymal attenuation abnormalityis present.The calvarium and skullbase are unremarkable. The mastoid air cells andvisualized paranasal air sinuses are clear.IMPRESSIONNormal CT head [facility] CenterPOOK [id number] 01:54:00* Test Item Value Reference Range Interpretation Comme nts POCT PREG (test code = 1605) negative On board controls acceptable with C Line (test code = 3574) yes POCT PREG LOT # (test code = 3575) [id number] POCT PREG TEST DATE ( test code = 3576) 11/14/2020 Lab Interpretation (test cod e = 60311-1) Normal [facility] PELVIS2019-04-17 02:28:09AFTER HOURS SERVICE ON: 04/17/2019 2:23 AMPelvic UltrasoundLocation Code [id number]: [id number]: Disorder of ovaryTRANSABDOMINAL ScanTechnique: Longitudinal and transverse real- time [...] THE ABDOMEN AND PELVIS WITHOUT CONTRASTDictation Location: [id number] HISTORY: 23-year-old with right upper quadrant painTECHNIQUE: Helical CT of the abdomen and pelvis was performed without IV ororal contrast without complication. Coronal and Sagittal reconstructions wereobtained. Thisexam was performed according to our departmental dose [...] unremarkable. IMPRESSION:4.5 cm right adnexal cystic mass ispresent. Pelvic ultrasound is recommended.AMYLASE AND LIPASE 2019-04-17 00:01:00* Test Item Value Reference Range Interpretation Comme nts AMYLASE (test code = 10A) 32 U/L 28-100 LIPASE (test code = 60A) 40 IU/L 73-393 L COMPREHENSIVE METABOLIC MAY 2019-04-17 00:01:00* Test Item Value Reference Range Interpretation Comme nts GLUCOSE (test code = 06D) 89 mg/dL [...] = 31A) 40 IU/L <=78 URINE MONOCLONAL 2019-04-16 23:57:00* Test Item Value Reference Range Interpretation Comme nts PREG UR (test code = PGU) NEGATIVE NEGATIVE URINALYSIS 2019-04-16 23:57:00* Test Item Value Reference Range Interpretation Comme nts COLOR (test code = COLU) YELLOW YELLOW [...] = WAUAM) NO NO CBC (INCLUDES AUTOMATED DIFFERENTIAL)*[id number] 23:48:00* Test Item Value Reference Range Interpretation Comme nts WBC (test code = WBC) 7.9 10\S\3/uL [...] NO NO RBC MORPH (test code = WRBCMOR) NORMAL
[2023-04-06 21:47] LABS: Specific Gravity 1.026 (1.005-1.030)
[2023-04-06 21:48] LABS: Absolute Lymphocytes (CBC) 0.8 K/uL (0.7-4.9); Hematocrit 37.1 % (36.0-45.0); Lymphocytes % 6.3 % (15.3-44.8); MCV 83.8 fL (80-100); MPV 8.2 fL (7.6-11.3); Platelets 359 thou/uL (152-406); RBC Red Blood Cell Count 4.43 M/uL (3.86-4.86)
[2023-04-06 21:51] LABS: Specific Gravity 1.026 (1.005-1.030); Urine Bacteria None Seen /HPF (<20); Urine Bilirubin NEGATIVE (Negative); Urine Blood 3+ (Negative); Urine Clarity Extremely Turbid (Clear); Urine Color Yellow (Yellow); Urine Crystals Unidentified Few /HPF (None Seen); Urine Glucose NEGATIVE (Negative); Urine Mucus 3+ /HPF (None Seen); Urine Protein 1+ (Negative); Urine Urobilinogen 1+ (Normal); Urine WBC Clump Rare /HPF (None Seen); Urine pH 6.5 (5.0-7.0)
[2023-04-06 22:02] LABS: Albumin 3.7 g/dL (3.4-5.0); Bilirubin Total 0.8 mg/dL (0.2-1.0); Potassium 3.9 mEq/L (3.5-5.1); Protein, Total 8.6 g/dL (6.4-8.2)
--- NOTE | 2023-04-06 23:31 | ER ---
Nurse's Notes [facility] Name: Omaira Richards Age: 27 yrs Sex: Female : 1995 Arrival Date: 04/06/2023 Time: 21:00 Bed 14 Private MD: Diagnosis: Diverticulitis, abdominal pain Presentation: 04/06 21:19 Chief complaint: Patient states: RUQ pain of 10,onset 3 days with vomiting. Coronavirus pf1 screen: Client presents with at least one sign or symptom that may indicate coronavirus-19. Ebola Screen: Patient negative for fever greater than or equal to 101.5 degrees Fahrenheit, and additional compatible Ebola Virus Disease symptoms. Initial Sepsis Screen: Does the patient meet any 2 criteria? HR > 90 bpm. No. Patient's initial sepsis screen is negative. Does the patient have a suspected source of infection? No. Patient's initial sepsis screen is negative. Risk Assessment: Do you want to hurt yourself or someone else? Patient reports no desire to harm self or others. 21:19 Method Of Arrival: Ambulatory pf1 21:19 Acuity: LEWIS 3 pf1 Historical: - Allergies: 21:20 No Known Allergies; pf1 - PMHx: 21:20 Ovarian cyst; fatty liver; pf1 - PSHx: 21:20 Cholecystectomy; right ovary removed; Cholecystectomy; pf1 - Immunization history:: Adult Immunizations up to date, Client reports receiving the 2nd dose of the Covid vaccine, Last tetanus immunization: up to date Flu vaccine is up to date. - Social history:: Smoking status: Reported history of juuling and/or vaping. Patient uses alcohol, but reports only rare drinking. Patient/guardian denies using alcohol. Screenin:22 [facility] ED Fall Risk Assessment (Adult) History of falling in the last 3 months, tm6 including since admission No falls in past 3 months (0 pts). Abuse screen: Denies threats or abuse. Denies injuries from another. Nutritional screening: No deficits noted. Tuberculosis screening: No symptoms or risk factors identified. Assessment: 21:20 General: Appears distressed, Behavior is calm, cooperative, crying. Pain: Complains of tm6 pain in umbilical area and right upper quadrant Pain currently is 8 out of 10 on a pain scale. Neuro: Level of Consciousness is awake, alert, obeys commands, Oriented to person, place, time, situation. Cardiovascular: Capillary refill < 3 seconds Patient's skin is warm and dry. Respiratory: Airway is patent Respiratory effort is even, unlabored, Respiratory pattern is regular, symmetrical. GI: Abdomen is tender to palpation in umbilical area and right upper quadrant. GI: Reports upper abdominal pain, vomiting. : No signs and/or symptoms were reported regarding the genitourinary system. EENT: No signs and/or symptoms were reported regarding the EENT system. Derm: No signs and/or symptoms reported regarding the dermatologic system. Musculoskeletal: No signs and/or symptoms reported regarding the musculoskeletal system. 22:57 GI: Bowel sounds present X 4 quads. tm6 23:07 Reassessment: Patient and/or family updated on plan of care and expected duration. Pain tm6 level reassessed. Patient is alert, oriented x 3, equal unlabored respirations, skin warm/dry/pink. Patient states symptoms have not improved. 04/07 01:36 Reassessment: Patient and/or family updated on plan of care and expected duration. Pain tm6 level reassessed. Patient is alert, oriented x 3, equal unlabored respirations, skin warm/dry/pink. Vital Signs: 04/06 21:19 BP 130 / 90; Pulse 114; Resp 18; Temp 97.7; Pulse Ox 100% on R/A; Weight 136.08 kg; pf1 Height 5 ft. 9 in. ; Pain 10/10; 21:45 BP 124 / 59; Pulse 100; Resp 22; Pulse Ox 100% on R/A; Pain 10/10; tm6 22:56 BP 99 / 70; Pulse 93; Pulse Ox 97% on R/A; Pain 8/10; tm6 23:07 BP 100 / 52; Pulse 85; Pulse Ox 95% on R/A; tm6 23:11 BP 109 / 69; tm6 23:11 Pain 10/10; tm6 04/07 01:36 BP 119 / 64; Pulse 82; Pulse Ox 100% on R/A; tm6 04/06 21:19 Body Mass Index 44.30 (136.08 kg, 175.26 cm) pf1 04/06 21:19 Pain Scale: Adult pf1 21:45 Pain Scale: Adult tm6 22:56 Pain Scale: Adult tm6 23:11 Pain Scale: Adult tm6 ED Course: 04/06 21:02 Patient arrived in ED. mr 21:04 Vince Hills MD is Attending Physician. sp3 21:20 Triage completed. pf1 21:20 Bennett Kaiser, RN is Primary Nurse. tm6 21:22 Patient has correct armband on for positive identification. Bed in low position. Call tm6 light in reach. Side rails up X2. Provided Education on: plan of care. Client placed on continuous cardiac and pulse oximetry monitoring. NIBP monitoring applied. Door closed. Noise minimized. Lights dimmed. 21:22 Arm band placed on right wrist. tm6 21:22 No provider procedures requiring assistance completed. tm6 21:35 Inserted saline lock: 20 gauge in right antecubital area, using aseptic technique. tm6 22:39 CT Abd/Pelvis - IV Contrast Only In Process Unspecified. EDMS 04/07 01:50 IV discontinued, intact, bleeding controlled, No redness/swelling at site. Pressure tm6 dressing applied. Administered Medications: 04/06 21:44 Drug: NS 0.9% IV 1000 ml IV at 1 bolus Per protocol; 1000 mL bolus Route: IV; Rate: 1 tm6 bolus; Site: right antecubital; 21:44 Drug: Ondansetron IVP 4 mg IVP once; over 2 minutes Route: IVP; Site: right antecubital;tm6 23:10 Follow up: Response: No adverse reaction tm6 21:44 Drug: HYDROmorphone IVP 1 mg IVP once Route: IVP; Site: right antecubital; tm6 23:10 Follow up: Response: No adverse reaction; Pain is unchanged, physician notified tm6 04/07 01:39 Follow up: Response: No adverse reaction tm6 04/06 23:17 Drug: HYDROmorphone IVP 1 mg IVP once Route: IVP; Site: right antecubital; tm6 04/07 01:39 Follow up: Response: No adverse reaction tm6 04/06 23:47 Drug: metroNIDAZOLE IVPB 500 mg 100 ml IVPB at 200 ml/hr once over 30 mins Volume: 100 tm6 ml; Route: IVPB; Rate: 200 ml/hr; Infused Over: 30 mins; Site: right antecubital; 04/07 01:38 Follow up: Response: No adverse reaction; IV Status: Completed infusion; IV Intake: tm6 100ml 00:40 Drug: Ciprofloxacin IVPB 400 mg 200 ml IVPB once over 60 mins Volume: 200 ml; Route: tm6 IVPB; Infused Over: 60 mins; Site: right antecubital; 01:38 Follow up: Response: No adverse reaction; IV Status: Completed infusion; IV Intake: tm6 200ml 01:47 Drug: Ondansetron IVP 4 mg IVP once; over 2 minutes Route: IVP; Site: right antecubital;tm6 Medication: 01:50 VIS not applicable for this client. tm6 Intake: 01:38 IV: 100ml; Total: 100ml. tm6 01:38 IV: 200ml; Total: 300ml. tm6 Outcome: 04/06 23:30 Discharge ordered by . iggy 04/07 01:49 Discharged to home ambulatory, with family, tm6 Condition: stable Discharge instructions given to patient, family, Instructed on discharge instructions, follow up and referral plans. medication usage, Demonstrated understanding of instructions, follow-up care, medications, Prescriptions given X 3, 01:50 Patient left the ED. tm6 Signatures: Dispatcher [employer] EDMS Shirley Galindo, Reg Reg mr Vince Hills MD MD sp3 Madina Arguello RN RN pf1 Bennett Kaiser RN RN tm6
--- NOTE | 2023-04-06 23:31 | EDPHYS ---
Physician Documentation [facility] Name: Omaira Richards Age: 27 yrs Sex: Female : 1995 Arrival Date: 04/06/2023 Time: 21:00 Bed 14 Private MD: ED Physician Vince Hills HPI: 04/06 21:23 This 27 yrs old Female presents to ER via Ambulatory with complaints of sp3 Abdominal Pain, Vomiting. 21:23 This 27 yrs old Female presents to ER via Ambulatory with complaints of sp3 Abdominal Pain, Vomiting. 21:23 27-year-old female with a history of fatty liver and prior cholecystectomy now presents sp3 to the ED with 3-day history of right upper quadrant abdominal pain progressively getting worse associated with nausea without vomiting or diarrhea. She denies any other symptoms including headache, neck pain, chest pain, shortness of breath, back pain, dysuria, urinary frequency, gross visual hematuria, , lower abdominal pain, rash, bleeding, known sick contacts, travel history, potential bad food, or any other signs or symptoms on ROS at this time.. Historical: - Allergies: 21:20 No Known Allergies; pf1 - PMHx: 21:20 Ovarian cyst; fatty liver; pf1 - PSHx: 21:20 Cholecystectomy; right ovary removed; Cholecystectomy; pf1 - Immunization history:: Adult Immunizations up to date, Client reports receiving the 2nd dose of the Covid vaccine, Last tetanus immunization: up to date Flu vaccine is up to date. - Social history:: Smoking status: Reported history of juuling and/or vaping. Patient uses alcohol, but reports only rare drinking. Patient/guardian denies using alcohol. ROS: 21:24 Constitutional: Negative for fever, chills, and weight loss, Eyes: Negative for injury, sp3 pain, redness, and discharge, ENT: Negative for injury, pain, and discharge, Neck: Negative for injury, pain, and swelling, Cardiovascular: Negative for chest pain, palpitations, and edema, Respiratory: Negative for shortness of breath, cough, wheezing, and pleuritic chest pain, Back: Negative for injury and pain, : Negative for injury, bleeding, discharge, and swelling, MS/Extremity: Negative for injury and deformity, Skin: Negative for injury, rash, and discoloration, Neuro: Negative for headache, weakness, numbness, tingling, and seizure, Psych: Negative for depression, anxiety, suicide ideation, homicidal ideation, and hallucinations, Allergy/Immunology: Negative for hives, rash, and allergies, Endocrine: Negative for neck swelling, polydipsia, polyuria, polyphagia, and marked weight changes, Hematologic/Lymphatic: Negative for swollen nodes, abnormal bleeding, and unusual bruising, 21:24 All other systems are negative, Exam: 21:24 Constitutional: This is a well developed, well nourished patient who is awake, alert, sp3 and in no acute distress. Head/Face: Normocephalic, atraumatic. Eyes: Pupils equal round and reactive to light, extra-ocular motions intact. Lids and lashes normal. Conjunctiva and sclera are non-icteric and not injected. Cornea within normal limits. Periorbital areas with no swelling, redness, or edema. ENT: Nares patent. No nasal discharge, no septal abnormalities noted. External auditory canals are clear. Oropharynx with no redness, swelling, or masses, exudates, or evidence of obstruction, uvula midline. Mucous membranes moist. Neck: Trachea midline, no thyromegaly or masses palpated, and no cervical lymphadenopathy. Supple, full range of motion without nuchal rigidity, or vertebral point tenderness. No Meningismus. Chest/axilla: Normal chest wall appearance and motion. Nontender with no deformity. No lesions are appreciated. Cardiovascular: Regular rate and rhythm with a normal S1 and S2. No gallops, murmurs, or rubs. Normal PMI, no JVD. No pulse deficits. Respiratory: Lungs have equal breath sounds bilaterally, clear to auscultation and percussion. No rales, rhonchi or wheezes noted. No increased work of breathing, no retractions or nasal flaring. Back: No spinal tenderness. No costovertebral tenderness. Full range of motion. Skin: Warm, dry with normal turgor. Normal color with no rashes, no lesions, and no evidence of cellulitis. MS/ Extremity: Pulses equal, no cyanosis. Neurovascular intact. Full, normal range of motion. Neuro: Awake and alert, GCS 15, oriented to person, place, time, and situation. Cranial nerves II-XII grossly intact. Motor strength 5/5 in all extremities. Sensory grossly intact. Cerebellar exam normal. Normal gait. Psych: Awake, alert, with orientation to person, place and time. Behavior, mood, and affect are within normal limits. 21:24 Abdomen/GI: Patient has right upper quadrant abdominal pain with mild voluntary guarding. No peritoneal signs noted. Mild tachycardia also noted., Vital Signs: 21:19 BP 130 / 90; Pulse 114; Resp 18; Temp 97.7; Pulse Ox 100% on R/A; Weight 136.08 kg; pf1 Height 5 ft. 9 in. ; Pain 10/10; 21:45 BP 124 / 59; Pulse 100; Resp 22; Pulse Ox 100% on R/A; Pain 10/10; tm6 22:56 BP 99 / 70; Pulse 93; Pulse Ox 97% on R/A; Pain 8/10; tm6 23:07 BP 100 / 52; Pulse 85; Pulse Ox 95% on R/A; tm6 23:11 BP 109 / 69; tm6 23:11 Pain 10/10; tm6 04/07 01:36 BP 119 / 64; Pulse 82; Pulse Ox 100% on R/A; tm6 04/06 21:19 Body Mass Index 44.30 (136.08 kg, 175.26 cm) pf1 04/06 21:19 Pain Scale: Adult pf1 21:45 Pain Scale: Adult tm6 22:56 Pain Scale: Adult tm6 23:11 Pain Scale: Adult tm6 MDM: 04/06 21:20 Patient medically screened. sp3 21:24 Data reviewed: vital signs, nurses notes, lab test result(s), radiologic studies. ED sp3 course: 27-year-old female with right upper quadrant abdominal pain. Patient already has had a cholecystectomy. Differential diagnosis is broad and includes colitis, constipation, pulled muscle, other surgical pathology, ileus, obstruction. Workup will include laboratory values and CT scan of the abdomen pelvis and we will treat with supportive care including IV fluids, IV Dilaudid, IV Zofran, and keep patient n.p.o. until workup is complete. Disposition pending workup and patient course.. 23:30 ED course: CT positive for diverticulitis. We will administer Cipro and Flagyl IV and sp3 send patient home on p.o. antibiotics, Bentyl and follow-up with PCP.. 04/06 21:21 Order name: CBC with Diff; Complete Time: 22:11 sp3 04/06 21:21 Order name: CMP; Complete Time: 22:11 sp3 04/06 21:21 Order name: Lipase; Complete Time: 22:11 sp3 04/06 21:21 Order name: Test, Urine; Complete Time: 22:11 sp3 04/06 21:21 Order name: Urinalysis w/ reflexes; Complete Time: 22:11 sp3 04/06 21:21 Order name: CT Abd/Pelvis - IV Contrast Only sp3 04/06 21:21 Order name: IV Saline Lock; Complete Time: 21:35 sp3 04/06 21:21 Order name: Labs collected and sent; Complete Time: 21:35 sp3 Administered Medications: 21:44 Drug: NS 0.9% IV 1000 ml IV at 1 bolus Per protocol; 1000 mL bolus Route: IV; Rate: 1 tm6 bolus; Site: right antecubital; 21:44 Drug: Ondansetron IVP 4 mg IVP once; over 2 minutes Route: IVP; Site: right antecubital;tm6 23:10 Follow up: Response: No adverse reaction tm6 21:44 Drug: HYDROmorphone IVP 1 mg IVP once Route: IVP; Site: right antecubital; tm6 23:10 Follow up: Response: No adverse reaction; Pain is unchanged, physician notified tm6 04/07 01:39 Follow up: Response: No adverse reaction 6 04/06 23:17 Drug: HYDROmorphone IVP 1 mg IVP once Route: IVP; Site: right antecubital; tm6 04/07 01:39 Follow up: Response: No adverse reaction tm6 04/06 23:47 Drug: metroNIDAZOLE IVPB 500 mg 100 ml IVPB at 200 ml/hr once over 30 mins Volume: 100 tm6 ml; Route: IVPB; Rate: 200 ml/hr; Infused Over: 30 mins; Site: right antecubital; 04/07 01:38 Follow up: Response: No adverse reaction; IV Status: Completed infusion; IV Intake: tm6 100ml 00:40 Drug: Ciprofloxacin IVPB 400 mg 200 ml IVPB once over 60 mins Volume: 200 ml; Route: tm6 IVPB; Infused Over: 60 mins; Site: right antecubital; 01:38 Follow up: Response: No adverse reaction; IV Status: Completed infusion; IV Intake: tm6 200ml 01:47 Drug: Ondansetron IVP 4 mg IVP once; over 2 minutes Route: IVP; Site: right antecubital;tm6 Disposition Summary: 04/06/23 23:30 Discharge Ordered Notes: Location: Home sp3 Condition: Stable sp3 Diagnosis - Diverticulitis, abdominal pain sp3 Followup: sp3 - With: Private Physician - When: Upon discharge from the Emergency Department - Reason: Continuance of care Discharge Instructions: - Discharge Summary Sheet sp3 - Diverticulitis sp3 Forms: - Medication Reconciliation Form sp3 - Thank You Letter sp3 - Antibiotic Education sp3 - Prescription Opioid Use sp3 - Patient Portal Instructions sp3 - Leadership Thank You Letter sp3 - Work release form tm6 Prescriptions: - Flagyl 500 mg Oral tablet - take 1 tablet ORAL route every 8 hours for 7 days; 21 tablet; Refills: 0, sp3 Product Selection Permitted - Cipro 500 mg Oral Tablet - take 1 tablet ORAL route every 12 hours for 7 days; 14 tablet; Refills: 0, sp3 Product Selection Permitted - dicyclomine 10 mg Oral capsule - take 1 capsule ORAL route 3 times per day; 20 capsule; Refills: 0, Product sp3 Selection Permitted Signatures: Dispatcher [employer] Vince Lindsay MD MD sp3 Madina Arguello RN RN pf1 Bennett Kaiser RN RN tm6
[2023-04-07 04:25] VITALS: TEMP 97.7
[2023-04-07 04:45] VITALS: BP 119/64; O2SAT 100
--- NOTE | 2023-04-07 12:46 | RAD REPORT ---
EXAM DESCRIPTION: CT - Abdomen Pelvis W Contrast - 04/07/2023 6:35 am CLINICAL HISTORY: RUQ PAIN. COMPARISON: CT abdomen/pelvis from September 14, 2021. TECHNIQUE: CT of the abdomen and pelvis was performed following intravenous administration of iodina wes contrast. Oral contrast was not administered. Axial, coronal, and sagittal soft tissue window rec onstructions were created and sent to PACS. This exam was performed according to our departmental dose-optimization program, which includes autom ated exposure control, adjustment of the mA and/or kV according to patient size and/or use of iterati ve reconstruction technique. FINDINGS: Thoracic: No significant abnormality. Hepatobiliary: Diffuse hepatic steatosis. Hepatomegaly, measuring 19.8 cm in length. No concerning he patic lesion identified. The portal veins are patent. The gallbladder is surgically absent. No biliar y ductal dilatation. Pancreas: Unremarkable. Spleen: Unremarkable. Gastrointestinal: There is an inflamed diverticulum in the mid sigmoid colon in the midline lower abd omen. Mild surrounding fat stranding. No free air or fluid collections. No evidence of bowel obstruct ion. The appendix is normal. Small amount of fecal material throughout the colon and rectum. A few le ft colonic diverticula are visualized. Small amount of fecal material throughout the colon and rectum . Adrenals: No abnormality identified in either adrenal gland. Renal: No concerning parenchymal abnormality in either kidney. No hydronephrosis or urolithiasis. Bladder/Reproductive: Unremarkable appearance of the urinary bladder by CT technique. Unremarkable CT appearance of the uterus and ovaries. Vascular/Lymphatics: No lymphadenopathy identified by CT size criteria. Abdominal aorta is normal in caliber. Musculoskeletal: No concerning osseous lesion identified. Fluid / peritoneum: No significant free fluid. No free intraperitoneal air identified. IMPRESSION 1. Acute sigmoid diverticulitis, uncomplicated. 2. Hepatic steatosis and hepatomegaly. Electronically signed by: Taylor Cedillo MD 04/06/2023 10:56 PM [employer] Due to temporary technical issues with the PACS/Fluency reporting system, reports are being signed by the in house radiologists without review as a courtesy to insure prompt reporting. The interpreting radiologist is fully responsible for the content of the report.
== END ==
LOC: ER 21:00
DX: K57.32 Diverticulitis of large intestine without perforation or abscess without bleeding (principal)
CPT/HCPCS: 96365; 85025; 81001; 36415; 81025; 83690; 80053; 74177; 96375; 99284; Q9967; J1170 ×2; J2405; J0744; J7030

== ENCOUNTER → 2023-05-29 | Emergency (ER) | payer BC ==
[~2023-05-29] MED LIST changes: +ASPIRIN 81 MG CHEWABLE TABLET ONE; -CIPROFLOXACIN 400mg IV 400 MG/200 ML BAG IV ONE; -HYDROMORPHONE HCL 1 MG/ML INJ ONE; -METRONIDAZOLE 500mg IVPB 500 MG/100 ML BAG IV ONE; -NA CHLORIDE 0.9% 1,000 ML ONE; -ONDANSETRON 4 MG/2 ML VIAL ONE
--- OUTSIDE RECORDS SUMMARY | 2023-05-29 09:47 | XMS REPORT | Continuity of Care Document ---
Author Name Unknown Address [address] [facility] [address] [facility] [address] [place] [address] [facility] thconnect Address [address] [facility] [place] [address] Care Team Providers Care Bench Carpenter Name Role Phone ELSIE MCPHERSON Primary Care Physician DR ELSIE Lindsey Attending Clinician TYRA Fields Attending Clinician Eric Cancino MD, Tyra Attending Clinician [phone] Thomas Dutta MD Attending Clinician [phone] Ted Hagen Attending Clinician [phone] [address]TD STAPLES Attending Clinician [address] MAHSA Short Attending Clinician DR ELSIE Mendoza Admitting Clinician TYRA Fields Admitting Clinician TED Dowell Admitting Clinician DR MAHSA Short Admitting Clinician Nasim busby Payers Payer Name Policy Type Policy Number Effective Date Expirati on Date Source [facility] [id number] 2023 00:00:00 Problems Condition Name Condition Details Condition Category Status Onset Date Resolution Date Last Treatment Date Treating Clinician Comments Source Diverticul osis Diverticul osis Disease Active 2022-04 00:00: 00 [facility] Fatty liver Fatty liver Disease Active 2022-04 00:00: 00 [facility] No known active problems No known active problems Disease [facility] Allergies, Adverse Reactions, Alerts Allergy Name Allergy Type Status Severity Reaction(s) Onset Date Inactive Date Treating Clinician Comments Source No Known Allergie s DA Active Unknown 2010-04 00:00: 00 [facility] NO KNOWN ALLERGIE S Drug Class Active [facility] Social History Social Habit Start Date Stop Date Quantity Comments Source Exposure to SARS-CoV-2 (event) Not sure [facility] Sexual orientation [facility] Sex Assigned At 1995 00:00:00 1995 00:00:00 [facility] Smoking Status Start Date Stop Date Source Tobacco smoking consumption unknown [facility] Medications Ordered Medication Name Filled Medication Name Start Date Stop Date Current Medication? Ordering Clinician Indication Dosage Frequency Signature (SIG) Comments Components Source acetaminoph en-codeine (TYLENOL #3) 300-30 mg tablet 1 tablet 2022-04 18:45: 00 02-21 18:38 :00 No 1{tbl} 1 tablet, Oral, ONCE, 1 dose, [facility]02/21/23 [facility] 1245[facility] 370-500 mL) injection 80 mL 2022-04 18:30: 00 02-21 18:30 :00 No [id number] 80mL 80 mL, Intravenou s, ONCE, 1 dose, On Mon02/21/23 at 1230, Routine [facility] ketorolac (TORADOL) injection 30 mg 2022-04 16:45: 00 02-21 16:17 :00 No 30mg 30 mg, Slow IV Push, ONCE, 1 dose, On Mon02/21/23 at 1045, [facility] NaCl 0.9% (NS) bolus infusion 1,000 mL 2022-04 16:15: 00 02-21 18:50 :00 No 1000mL at 999 mL/hr, 1,000 mL, IV Infusion, ONCE, 1 dose, On Mon02/21/23 at 1015, [facility] medroxyPROG ESTERone 5 mg tablet 2022-04 00:00: 00 Yes [id number] 100 5mg Take 1 tablet by mouth in the morning. For 5-10 days. Stop when bleeding stops. [facility] No known medications No Un varsha [facility] Vital Signs Vital Name Observation Time Observation Value Comments S ource Heart rate 2023-02-21 18:38:00 66 /min [facility] Body temperature 2023-02-21 18:38:00 36.72 Bonnie [facility] Oxygen saturation in Arterial blood by Pulse oximetry 2023-02-21 18:38:00 96 /min [facility] Systolic blood pressure 2023-02-21 17:50:00 124 mm[Hg] [facility] Diastolic blood pressure 2023-02-21 17:50:00 89 mm[Hg] [facility] Respiratory rate 2023-02-21 17:50:00 16 /min [facility] Body height 2023-02-21 14:35:00 175.3 cm [facility] Body weight 2023-02-21 14:35:00 148.326 kg [facility] BMI 2023-02-21 14:35:00 48.29 kg/m2 [facility] Systolic blood pressure 2020-11-22 07:35:00 139 mm[Hg] [facility] Diastolic blood pressure 2020-11-22 07:35:00 94 mm[Hg] [facility] Heart rate 2020-11-22 07:35:00 73 /min [facility] Respiratory rate 2020-11-22 07:35:00 20 /min [facility] Oxygen saturation in Arterial blood by Pulse oximetry 2020-11-22 07:35:00 98 /min [facility] Body temperature 2020-11-22 02:14:00 37.06 Bonnie [facility] Body height 2020-11-22 02:14:00 175.3 cm [facility] Body weight 2020-11-22 02:14:00 112.038 kg [facility] BMI 2020-11-22 02:14:00 36.48 kg/m2 [facility] Oxygen saturation in Arterial blood by Pulse oximetry 2019-09-20 02:52:00 100 /min [facility] Systolic blood pressure 2019-09-20 02:52:00 136 mm[Hg] [facility] Diastolic blood pressure 2019-09-20 02:52:00 82 mm[Hg] [facility] Heart rate 2019-09-20 02:52:00 70 /min [facility] Body temperature 2019-09-20 02:52:00 37 Bonnie [facility] Respiratory rate 2019-09-20 02:52:00 18 /min [facility] Body height 2019-09-20 00:51:00 175.3 cm [facility] Body weight 2019-09-20 00:51:00 112.492 kg [facility] BMI 2019-09-20 00:51:00 36.62 kg/m2 [facility] Oxygen saturation in Arterial blood by Pulse oximetry 2019-09-20 02:52:00 100 /min [facility] Systolic blood pressure 2019-09-20 02:52:00 136 mm[Hg] [facility] Diastolic blood pressure 2019-09-20 02:52:00 82 mm[Hg] [facility] Heart rate 2019-09-20 02:52:00 70 /min [facility] Body temperature 2019-09-20 02:52:00 37 Bonnie [facility] Respiratory rate 2019-09-20 02:52:00 18 /min [facility] Body height 2019-09-20 00:51:00 175.3 cm [facility] Body weight 2019-09-20 00:51:00 112.492 kg [facility] BMI 2019-09-20 00:51:00 36.62 kg/m2 [facility] Height 2019-04-16 23:25:00 152.4 CM Weight 2019-04-16 23:25:00 106.14 KG Procedures Procedure Date / Time Performed Performing Clinicia n Source CT ABDOMEN PELVIS W CONTRAST 2023-02-21 17:35:33 Tyra Ruiz [facility] US OVARY TORSION 2023-02-21 16:22:48 Cecelia Ruiz [facility] POCT TEST 2023-02-21 15:31:00 Radha Ruiz [facility] COMP. METABOLIC PANEL (60855) 2023-02-21 15:24:00 Tyra Ruiz [facility] CBC WITH DIFF 2023-02-21 15:24:00 [facility] 2023-02-21 15:24:00 [facility] CONSENT/REFUSAL FOR DIAGNOSIS AND TREATMENT 2023-02-21 14:32:04 Doctor Unassigned, [place] [facility] EBV-MONONUCLEOSIS SCREEN 2020-11-22 06:03:00 Thomas Dutta [facility] RAPID STREP SCREEN FOR GROUP A 2020-11-22 05:40:00 Thomas Dutta [facility] NOTICE OF PRIVACY PRACTICES 2020-11-22 02:08:29 Doctor Unassigned, [place] [facility] CONSENT/REFUSAL FOR DIAGNOSIS AND TREATMENT 2020-11-22 02:07:36 Doctor Unassigned, [place] [facility] CONSENT/REFUSAL FOR DIAGNOSIS AND TREATMENT 2020-11-22 02:07:32 Doctor Unassigned, [place] [facility] CT HEAD WO CONTRAST 2019-09-20 02:12:31 Ted Staples [facility] POCT TEST 2019-09-20 01:54:00 Ted Staples [facility] NOTICE OF PRIVACY PRACTICES 2019-09-20 00:45:56 Doctor Unassigned, [place] [facility] CONSENT/REFUSAL FOR DIAGNOSIS AND TREATMENT 2019-09-20 00:45:32 Doctor Unassigned, [place] [facility] Encounters Start Date/Time End Date/Time Encounter Type Admission Type Attending [facility] Care Facility Care Department Encounter ID Source 2019-09-16 07:00:00 Inpatient C [facility]E [facility] RAD [id number] [facility] 2023-02-21 08:38:00 2023-02-21 12:54:00 Emergency X TYRA RUIZ [facility] ERT [id number] [facility] 2023-02-21 08:38:00 2023-02-21 12:54:00 Emergency Tyra Ruiz [facility] [id number] [facility] 2020-11-21 21:16:00 2020-11-22 03:30:[address] [facility] [id number] [facility] 2020-11-21 21:05:00 2020-11-21 21:05:00 Emergency X [facility] ERT [id number] [facility] 2019-09-19 19:55:06 2019-09-19 22:07:[address] [facility] [id number] 2019-09-19 19:55:06 2019-09-19 22:07:[address] [facility] [id number] [facility] 2019-09-19 19:55:06 2019-09-19 22:07:00 Emergency X TED STAPLES [facility] ERT [id number] [facility] 2019-05-22 02:19:00 2019-05-21 22:00:00 Inpatient E [id number] 2019-05-16 08:51:00 2019-05-16 08:51:00 Outpatient [facility] [id number] 2019-04-16 23:25:00 2019-04-17 02:35:00 Emergency E MAHSA HI [facility] [id number] [facility] Results Test Description Test Time Test Comments Results Result Co mments Source [facility] [id number] 06:45:54* Test Item Value Reference Range Interpretation Comme nts EBV Mononucleosis Screen (te st code = 1501784735) Negative Negative Lab Interpretation (test cod e = 27233-5) Normal [facility] S[facility] FOR GROUP [id number] 06:25:29* Test Item Value Reference Range Interpretation Comme nts Streptococcus pyogenes (grou p A) antigen (test code = 48569-4) Negative Negative Lab Interpretation (test cod e = 52407-9) Normal [facility] HEAD WO [id number] 02:36:34Normal CT headCT HEAD WO CONTRAST HISTORY: [...] paranasal air sinuses are clear.IMPRESSIONNormal CT head [facility] [id number] 01:54:00* Test Item Value Reference Range Interpretation Comme nts POCT PREG (test code = 1605) negative On board controls acceptable with C Line (test code = 3574) yes POCT PREG LOT # (test code = 3575) [id number] POCT PREG TEST DATE ( test code = 3576) 11/14/2020 Lab Interpretation (test cod e = 09126-3) Normal [facility]2019-04-17 02:28:09AFTER HOURS SERVICE ON: 04/17/2019 2:23 AMPelvic UltrasoundLocation Code [id number]: [id number]: Disorder of ovaryTRANSABDOMINAL ScanTechnique: Longitudinal and transverse [...] THE ABDOMEN AND PELVIS WITHOUT CONTRASTDictation Location: [id number] HISTORY: 23-year-old with right upper quadrant painTECHNIQUE: [...] = WAUAM) NO NO CBC (INCLUDES AUTOMATED DIFFERENTIAL)*[id number] 23:48:00* Test Item Value Reference Range Interpretation [...]
[2023-05-29 10:15] LABS: Absolute Lymphocytes (CBC) 2.1 K/uL (0.7-4.9); Hematocrit 38.6 % (36.0-45.0); Lymphocytes % 24.7 % (15.3-44.8); MCV 81.1 fL (80-100); Platelets 354 thou/uL (152-406); RBC Red Blood Cell Count 4.76 M/uL (3.86-4.86)
[2023-05-29 10:34] LABS: Magnesium 1.9 mg/dL (1.6-2.4); Troponin High Sensitivity 3.7 pg/mL (<58.9)
--- NOTE | 2023-05-29 12:32 | RAD REPORT ---
EXAM DESCRIPTION: RADChest Single View05/29/2023 11:30 am CLINICAL HISTORY: CHEST PAIN COMPARISON: Chest Single View dated 05/05/2022 TECHNIQUE: Portable AP view of the chest. FINDINGS: The lungs are clear. Decreased inspiratory effort somewhat limits evaluation. No pneumoth orax or effusion. The cardiomediastinal contours are unremarkable. IMPRESSION: No acute cardiopulmonary process.
--- NOTE | 2023-05-29 13:53 | EDPHYS ---
Physician Documentation [facility] Name: Omaira Richards Age: 28 yrs Sex: Female : 1995 Arrival Date: 05/29/2023 Time: 09:44 Bed 14 Private MD: ED Physician Neeraj Dutta HPI: 05/29 09:57 This 28 yrs old Female presents to ER via Ambulatory with complaints of Chest ms3 Pain. 09:57 28-year-old female with past medical history of fatty liver presents to the emergency ms3 department for left-sided chest pain that began at 4 AM. Patient states the pain is a 4/10 and intermittent in nature lasting approximately 30 to 45 seconds per episode. Patient describes the discomfort as tight/pinching. Patient denies nausea, vomiting, shortness of breath, diaphoresis. 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 - Social history:: Smoking status: Patient/guardian denies using tobacco, Stopped _ months ago 1. ROS: 09:57 Constitutional: Negative for fever, and chills. Neck: Negative for injury, pain, and ms3 swelling, 09:57 Respiratory: Negative for shortness of breath, cough, wheezing, and pleuritic chest pain, Abdomen/GI: Negative for abdominal pain, nausea, vomiting, diarrhea, and constipation, MS/Extremity: Negative for injury and deformity, Skin: Negative for injury, rash, and discoloration, 09:57 Cardiovascular: Positive for chest pain, Exam: 09:57 Constitutional: This is a well developed, well nourished patient who is awake, alert, ms3 and in no acute distress. Head/Face: Normocephalic, atraumatic. Chest/axilla: Normal chest wall appearance and motion. Nontender with no deformity. Cardiovascular: Regular rate and rhythm with a normal S1 and S2. No gallops, murmurs, or rubs. Normal PMI, no JVD. No pulse deficits. Respiratory: Lungs have equal breath sounds bilaterally, clear to auscultation and percussion. No rales, rhonchi or wheezes noted. No increased work of breathing, no retractions or nasal flaring. Abdomen/GI: Soft, non-tender, with normal bowel sounds. No distension or tympany. No guarding or rebound. No evidence of tenderness throughout. Skin: Warm, dry with normal turgor. Normal color with no rashes, no lesions, and no evidence of cellulitis. MS/ Extremity: Pulses equal, no cyanosis. Neurovascular intact. Full, normal range of motion. 11:29 ECG was reviewed by the Attending Physician. ms3 Vital Signs: 09:49 BP 116 / 69; Pulse 76; Resp 18; Temp 97.6; Pulse Ox 100% ; Weight 136.08 kg; Height 5 nj1 ft. 9 in. ; Pain 6/10; 10:00 BP 131 / 73; Pulse 74; Resp 18; Pulse Ox 98% on R/A; me1 11:00 BP 144 / 77; Pulse 76; Resp 16; Pulse Ox 100% on R/A; me1 12:16 BP 115 / 77; Pulse 71; Resp 16; Pulse Ox 96% on R/A; me1 13:00 BP 113 / 89; Pulse 71; Resp 16; Pulse Ox 98% on R/A; me1 14:09 BP 125 / 86; Pulse 74; Resp 17; Pulse Ox 98% on R/A; me1 09:49 Body Mass Index 44.30 (136.08 kg, 175.26 cm) nj1 09:49 Pain Scale: Adult nj1 MDM: 09:56 Patient medically screened. ms3 09:57 Differential diagnosis: abnormal EKG, acute myocardial infarction, acute pericarditis, ms3 chest wall pain. 09:58 Scoring Tools PERC Rule for PE Age > /= 50 No (0) HR > /= 100 No (0) O2 Sat Room Air < ms3 95% No (0) Unilateral leg swelling No (0) Hemoptysis No (0) Recent surgery or trauma </= 4 weeks ago, requiring treatment with General Anesthesia No (0) Prior PE or DVT No (0) Hormone use No (0). 13:52 HEART Score: History: Slightly Suspicious (0), ECG: Normal (0), Age: < or = 45 years ms3 (0), Risk Factors: No Risk Factors Known (0), Troponin: < or = 1 x Normal Limit (0), Total Score = 0. Data reviewed: vital signs, nurses notes, lab test result(s), EKG, radiologic studies, and as a result, I will discharge patient. Test considered but Not performed: Labs: D dimer- PERC negative. Counseling: I had a detailed discussion with the patient and/or guardian regarding the historical points, exam findings, and any diagnostic results supporting the discharge/admit diagnosis, lab results, radiology results, the need for outpatient follow up, to return to the emergency department if symptoms worsen or persist or if there are any questions or concerns that arise at home. Special discussion: Based on the patient's history, exam, and Dx evaluation, there is no indication for emergent intervention or inpatient Tx. It is understood by the patient/guardian that if the Sx's persist or worsen they need to return immediately for re-evaluation. ED course: Discussed labs and chest x-ray with patient. Patient to follow-up with primary care physician in 2 to 3 days. patient understands and agrees with plan. All questions were answered. Return precautions discussed include worsening symptoms, or any other concerns.. 05/29 09:57 Order name: Basic Metabolic Panel; Complete Time: 11:02 ms3 05/29 09:57 Order name: CBC with Diff; Complete Time: 11:02 3 05/29 09:57 Order name: Magnesium; Complete Time: 11:02 ms3 05/29 09:57 Order name: Troponin HS; Complete Time: 11:02 ms3 05/29 09:57 Order name: XRAY Chest (1 view); Complete Time: 13:19 ms3 05/29 09:57 Order name: EKG; Complete Time: 09:57 ms3 05/29 09:57 Order name: Cardiac monitoring; Complete Time: 10:33 ms3 05/29 09:57 Order name: EKG - Nurse/Tech; Complete Time: 10:33 ms3 05/29 09:57 Order name: IV Saline Lock; Complete Time: 10:09 ms3 05/29 09:57 Order name: Labs collected and sent; Complete Time: 10:09 ms3 05/29 09:57 Order name: O2 Per Protocol; Complete Time: 10: ms3 05/29 09:57 Order name: O2 Sat Monitoring; Complete Time: : ms3 EC:29 Rate is 76 beats/min. Rhythm is regular. QRS [place] is Normal. SD interval is normal. QRS ms3 interval is normal. Clinical impression: Normal ECG. Interpreted by me. Reviewed by me. Administered Medications: 10:12 Drug: Aspirin PO Chewable Tablet 324 mg PO once; 81 mg tablets x 4 Route: PO; me1 10:37 Follow up: Response: No adverse reaction me1 Disposition Summary: 05/29/23 13:52 Discharge Ordered Notes: Location: Home ms3 Condition: Stable ms3 Diagnosis - Chest pain, unspecified ms3 Followup: ms3 - With: Private Physician - When: 2 - 3 days - Reason: Recheck today's complaints Discharge Instructions: - Discharge Summary Sheet ms3 - Nonspecific Chest Pain, Adult ms3 Forms: - Medication Reconciliation Form ms3 - Thank You Letter ms3 - Antibiotic Education ms3 - Prescription Opioid Use ms3 - Patient Portal Instructions ms3 - Leadership Thank You Letter ms3 Signatures: Dispatcher [employer] EDNeeraj Marsh DO DO ms3 Mónica Simon, RN RN nj1 Zohreh Goodwin, RN RN me1
--- NOTE | 2023-05-29 13:53 | ER ---
Nurse's Notes [facility] Name: Omaira Richards Age: 28 yrs Sex: Female : 1995 Arrival Date: 05/29/2023 Time: 09:44 Bed 14 Private MD: Diagnosis: Chest pain, unspecified Presentation: 05/29 09:49 Chief complaint: Patient states: Left sided intermittent chest pain that started at 4am nj1 this morning, started on left side of chest wall midaxillary. Worse when laying down. Coronavirus screen: Vaccine status: Patient reports receiving the 2nd dose of the covid vaccine. Ebola Screen: Patient denies travel to an Ebola-affected area in the 21 days before illness onset. Initial Sepsis Screen: Does the patient meet any 2 criteria? No. Patient's initial sepsis screen is negative. Does the patient have a suspected source of infection? No. Patient's initial sepsis screen is negative. Risk Assessment: Do you want to hurt yourself or someone else? Patient reports no desire to harm self or others. Onset of symptoms was May 29, 2023 at 04:00. 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 [place] [place] Historical: - Allergies: 09:53 No Known Allergies; id1 - PMHx: 09:53 fatty liver; Ovarian cyst; [facility] - PSHx: 09:53 Cholecystectomy; Cholecystectomy; right ovary removed; [facility] - Immunization history:: Client reports receiving the 2nd dose of the Covid vaccine. - Social history:: Smoking status: Patient/guardian denies using tobacco, Stopped _ months ago 1. Screenin:34 [facility] ED Fall Risk Assessment (Adult) History of falling in the last 3 months, or1 including since admission No falls in past 3 months (0 pts) Confusion or Disorientation No (0 pts) Intoxicated or Sedated No (0 pts) Impaired Gait No (0 pts) Mobility Assist Device Used No (0 pt) Altered Elimination No (0 pt) Score/Fall Risk Level 0 - 2 = Low Risk Maintained a safe environment, Provided non-skid footwear, Hourly rounding (assess needs \T\ fall precautionary measures) done. Abuse screen: Denies threats or abuse. Nutritional screening: No deficits noted. Tuberculosis screening: No symptoms or risk factors identified. Assessment: 10:34 General: Appears uncomfortable, well groomed, well developed, well nourished, Behavior me1 is calm, cooperative, appropriate for age, Reports Left sided intermittent chest pain that started at 4am this morning, started on left side of chest wall midaxillary. Worse when laying down. Pain: Complains of pain in chest Pain does not radiate. Pain currently is 6 out of 10 on a pain scale. Quality of pain is described as pinching, Pain began 4 am. Is continuous. Neuro: Level of Consciousness is awake, alert, obeys commands, Oriented to person, place, time, situation, Appropriate for age. Cardiovascular: Reports chest pain, shortness of breath, Capillary refill < 3 seconds Patient's skin is warm and dry. Respiratory: Reports shortness of breath with chest pain Airway is patent Trachea midline Respiratory effort is even, unlabored, Respiratory pattern is regular, symmetrical. Vital Signs: 09:49 BP 116 / 69; Pulse 76; Resp 18; Temp 97.6; Pulse Ox 100% ; Weight 136.08 kg; Height 5 nj1 ft. 9 in. ; Pain 6/10; 10:00 BP 131 / 73; Pulse 74; Resp 18; Pulse Ox 98% on R/A; me1 11:00 BP 144 / 77; Pulse 76; Resp 16; Pulse Ox 100% on R/A; me1 12:16 BP 115 / 77; Pulse 71; Resp 16; Pulse Ox 96% on R/A; me1 13:00 BP 113 / 89; Pulse 71; Resp 16; Pulse Ox 98% on R/A; me1 14:09 BP 125 / 86; Pulse 74; Resp 17; Pulse Ox 98% on R/A; me1 09:49 Body Mass Index 44.30 (136.08 kg, 175.26 cm) nj1 09:49 Pain Scale: Adult nj1 ED Course: 09:46 Patient arrived in ED. mg5 09:47 Neeraj Dutta DO is Attending Physician. ms3 09:53 Triage completed. nj1 09:55 Arm band placed on right wrist. nj1 10:00 Zohreh Goodwin, NICK is Primary Nurse. me1 10:09 Inserted saline lock: 22 gauge in right antecubital area, using aseptic technique. me1 10:34 Patient has correct armband on for positive identification. Patient has correct armband me1 on for positive identification. Bed in low position. Call light in reach. Side rails up X2. Provided Education on: POC. Verbalized understanding. . Client placed on continuous cardiac and pulse oximetry monitoring. NIBP monitoring applied. 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 Pulse ox on. 10:34 No provider procedures requiring assistance completed. Patient maintains SpO2 me1 saturation greater than 95% on room air. 11:32 XRAY Chest (1 view) In Process Unspecified. EDMS 14:13 IV discontinued, intact, bleeding controlled, No redness/swelling at site. Pressure me1 dressing applied. Administered Medications: 10:12 Drug: Aspirin PO Chewable Tablet 324 mg PO once; 81 mg tablets x 4 Route: PO; me1 10:37 Follow up: Response: No adverse reaction me1 Medication: 10:34 VIS not applicable for this client. me1 Outcome: 13:52 Discharge ordered by MD. ms3 14:13 Discharged to home ambulatory, with friend, me1 14:13 Condition: stable 14:13 Discharge instructions given to patient, friend, Instructed on discharge instructions, follow up and referral plans. Demonstrated understanding of instructions, follow-up care, 14:13 Patient left the ED. me1 Signatures: Dispatcher [employer] EDIL Neeraj Dutta DO DO ms3 Mónica Simon, RN RN nj1 Zohreh Goodwin RN RN me1 Jasmina Gatica mg5 Corrections: (The following items were deleted from the chart) 09:57 09:49 BP 116 / 69; Pulse 76bpm; Resp 100bpm; Pulse Ox 100%; Temp 97.6F; 136.08 kg; nj1 Height 5 ft. 9 in.; BMI: 44.3; Pain 6/10, Adult; nj1 10:34 09:49 Chief complaint: Patient states: Left sided intermittent chest pain that started me1 at 4am this morning, started on left side of chest wall midaxillary. Worse when laying down. nj1 10:39 10:15 BP 138 / 92; Pulse 95bpm; Resp 16bpm; Pulse Ox 99% RA; me1 me1
[2023-05-29 14:55] VITALS: BP 125/86; TEMP 97.6; O2SAT 98
== END ==
LOC: ER 09:44
DX: R07.89 Other chest pain (principal)
CPT/HCPCS: 36415; 71045; 80048; 83735; 84484; 85025; 93005

== ENCOUNTER 2023-12-27 12:47 | Inpatient (IN) | payer SELFPAY ==
--- OUTSIDE RECORDS SUMMARY | 2023-12-27 12:50 | XMS REPORT | Continuity of Care Document ---
Author Name Unknown Address [address] [facility] [place] [address] [facility] thconnect Address [address] [facility] [place] [address] Care Team Providers Care Data Reporting Analyst Name Role Phone ELSIE MCPHERSON Primary Care Physician DR ELSIE Lindsey Attending Clinician TYRA Fields Attending Clinician Tyra Fields MD Attending Clinician [phone] Thomas Dutta MD Attending Clinician [phone] Carlo Hagen Attending Clinician [phone] CARLO STAPLES Attending Clinician DR MAHSA Short Attending Clinician DR ELSIE Mendoza Admitting Clinician TYRA Fields Admitting Clinician CARLO Dowell Admitting Clinician Unavailable DR MAHSA HI Admitting Clinician Nasim busby Payers Payer Name Policy Type Policy Number Effective Date Expirati on Date Source [facility] [id number] 2023 00:00:00 Problems Condition Name Condition Details Condition Category Status Onset Date Resolution Date Last Treatment Date Treating Clinician Comments Source Diverticul osis Diverticul osis Disease Active 2022-04 00:00: 00 [facility] Fatty liver Fatty liver Disease Active 2022-04 00:00: 00 [facility] No known active problems No known active problems Disease [facility] Allergies, Adverse Reactions, Alerts Allergy Name Allergy Type Status Severity Reaction(s) Onset Date Inactive Date Treating Clinician Comments Source No Known Allergie s DA Active Unknown 2010-04 00:00: 00 [facility] NO KNOWN ALLERGIE S Drug Class Active [facility] Social History Social Habit Start Date Stop Date Quantity Comments Source Exposure to SARS-CoV-2 (event) Not sure [facility] Sexual orientation U [facility] Sex Assigned At 1995 00:00:00 1995 00:00:00 [facility] Smoking Status Start Date Stop Date Source Tobacco smoking consumption unknown [facility] Medications Ordered Medication Name Filled Medication Name Start Date Stop Date Current Medication? Ordering Clinician Indication Dosage Frequency Signature (SIG) Comments Components Source acetaminoph en-codeine (TYLENOL #3) 300-30 mg tablet 1 tablet 2022-04 18:45: 00 02-21 18:38 :00 No 1{tbl} 1 tablet, Oral, ONCE, 1 dose, [facility]02/21/23 [facility] 1245[facility] ([facility] 370-500 mL) injection 80 mL 2022-04 18:30: 00 02-21 18:30 :00 No [id number] 80mL 80 mL, Intravenou s, ONCE, 1 dose, On Mon02/21/23 at 1230, Routine [facility] ketorolac (TORADOL) injection 30 mg 2022-04 16:45: 00 02-21 16:17 :00 No 30mg 30 mg, Slow IV Push, ONCE, 1 dose, On Mon02/21/23 at 1045, [facility] NaCl 0.9% (NS) bolus infusion 1,000 mL 2022-04 16:15: 00 02-21 18:50 :00 No 1000mL at 999 mL/hr, 1,000 mL, IV Infusion, ONCE, 1 dose, On Mon02/21/23 at 1015, [facility] medroxyPROG ESTERone 5 mg tablet 2022-04 00:00: 00 Yes [id number] 100 5mg Take 1 tablet by mouth in the morning. For 5-10 days. Stop when bleeding stops. [facility] No known medications No Un varsha [facility] Vital Signs Vital Name Observation Time Observation Value Comments S ource Heart rate 2023-02-21 18:38:00 66 /min Unive [facility] Body temperature 2023-02-21 18:38:00 36.72 Bonnie [facility] Oxygen saturation in Arterial blood by Pulse oximetry 2023-02-21 18:38:00 96 /min [facility] Systolic blood pressure 2023-02-21 17:50:00 124 mm[Hg] [facility] Diastolic blood pressure 2023-02-21 17:50:00 89 mm[Hg] [facility] Respiratory rate 2023-02-21 17:50:00 16 /min [facility] Body height 2023-02-21 14:35:00 175.3 cm [facility] Body weight 2023-02-21 14:35:00 148.326 kg [facility] BMI 2023-02-21 14:35:00 48.29 kg/m2 [facility] Systolic blood pressure 2020-11-22 07:35:00 139 mm[Hg] [facility] Diastolic blood pressure 2020-11-22 07:35:00 94 mm[Hg] [facility] Heart rate 2020-11-22 07:35:00 73 /min [facility] Respiratory rate 2020-11-22 07:35:00 20 /min [facility] Oxygen saturation in Arterial blood by Pulse oximetry 2020-11-22 07:35:00 98 /min [facility] Body temperature 2020-11-22 02:14:00 37.06 Bonnie [facility] Body height 2020-11-22 02:14:00 175.3 cm [facility] Body weight 2020-11-22 02:14:00 112.038 kg [facility] BMI 2020-11-22 02:14:00 36.48 kg/m2 [facility] Oxygen saturation in Arterial blood by Pulse oximetry 2019-09-20 02:52:00 100 /min [facility] Systolic blood pressure 2019-09-20 02:52:00 136 mm[Hg] [facility] Diastolic blood pressure 2019-09-20 02:52:00 82 mm[Hg] [facility] Heart rate 2019-09-20 02:52:00 70 /min Unive [facility] Body temperature 2019-09-20 02:52:00 37 Bonnie [facility] Respiratory rate 2019-09-20 02:52:00 18 /min [facility] Body height 2019-09-20 00:51:00 175.3 cm [facility] Body weight 2019-09-20 00:51:00 112.492 kg [facility] BMI 2019-09-20 00:51:00 36.62 kg/m2 [facility] Oxygen saturation in Arterial blood by Pulse oximetry 2019-09-20 02:52:00 100 /min [facility] Systolic blood pressure 2019-09-20 02:52:00 136 mm[Hg] [facility] Diastolic blood pressure 2019-09-20 02:52:00 82 mm[Hg] [facility] Heart rate 2019-09-20 02:52:00 70 /min Unive [facility] Body temperature 2019-09-20 02:52:00 37 Bonnie [facility] Respiratory rate 2019-09-20 02:52:00 18 /min [facility] Body height 2019-09-20 00:51:00 175.3 cm [facility] Body weight 2019-09-20 00:51:00 112.492 kg [facility] BMI 2019-09-20 00:51:00 36.62 kg/m2 [facility] Height 2019-04-16 23:25:00 152.4 CM Weight 2019-04-16 23:25:00 106.14 KG Procedures Procedure Date / Time Performed Performing Clinicia n Source CT ABDOMEN PELVIS W CONTRAST 2023-02-21 17:35:33 Tyra Ruiz [facility] US OVARY TORSION 2023-02-21 16:22:48 Cecelia Ruiz [facility] POCT TEST 2023-02-21 15:31:00 Radha Ruiz [facility] COMP. METABOLIC PANEL ([id number]) 2023-02-21 15:24:00 Tyra Ruiz [facility] CBC WITH DIFF 2023-02-21 15:24:00 [facility] 2023-02-21 15:24:00 [facility]REFUSAL FOR DIAGNOSIS AND TREATMENT 2023-02-21 14:32:04 Doctor Unassigned, [place] [facility] EBV-MONONUCLEOSIS SCREEN 2020-11-22 06:03:00 Thomas Dutta [facility] RAPID STREP SCREEN FOR GROUP A 2020-11-22 05:40:00 Thomas Dutta [facility] NOTICE OF PRIVACY PRACTICES 2020-11-22 02:08:29 Doctor Unassigned, [place] [facility] CONSENT/REFUSAL FOR DIAGNOSIS AND TREATMENT 2020-11-22 02:07:36 Doctor Unassigned, [place] [facility] CONSENT/REFUSAL FOR DIAGNOSIS AND TREATMENT 2020-11-22 02:07:32 Doctor Unassigned, [place] [facility] CT HEAD WO CONTRAST 2019-09-20 02:12:31 Carlo Staples [facility] POCT TEST 2019-09-20 01:54:00 Carlo Staples [facility] NOTICE OF PRIVACY PRACTICES 2019-09-20 00:45:56 Doctor Unassigned, [place] [facility] CONSENT/REFUSAL FOR DIAGNOSIS AND TREATMENT 2019-09-20 00:45:32 Doctor Unassigned, [place] [facility] Encounters Start Date/Time End Date/Time Encounter Type Admission Type Attending [facility] Care Facility Care Department Encounter ID Source 2019-09-16 07:00:00 Inpatient C ELSIE MCPHERSON [facility] RAD [id number] [facility] 2023-02-21 08:38:00 2023-02-21 12:54:00 Emergency X TYRA RUIZ [facility] ERT [id number] [facility] 2023-02-21 08:38:00 2023-02-21 12:54:00 Emergency Tyra Ruiz [facility] [id number] [facility] 2020-11-21 21:16:00 2020-11-22 03:30:00 Emergency Thomas Dutta [facility] [id number] [facility] 2020-11-21 21:05:00 2020-11-21 21:05:00 Emergency X [facility] ERT [id number] [facility] 2019-09-19 19:55:06 2019-09-19 22:07:00 Emergency Carlo Staples [facility] [id number] 2019-09-19 19:55:06 2019-09-19 22:07:00 Emergency Carlo Staples [facility] [id number] [facility] 2019-09-19 19:55:06 2019-09-19 22:07:00 Emergency X CARLO STAPLES [facility] ERT [id number] [facility] 2019-05-22 02:19:00 2019-05-21 22:00:00 Inpatient E [facility] [id number] [id number] 2019-05-16 08:51:00 2019-05-16 08:51:00 Outpatient [facility] [id number] [id number] 2019-04-16 23:25:00 2019-04-17 02:35:00 Emergency E HI, MAHSA [facility] [id number] [facility] Results Test Description Test Time Test Comments Results Result Co mments Source [facility]-MONONUCLEOSIS [id number] 06:45:54* Test Item Value Reference Range Interpretation Comme nts EBV Mononucleosis Screen (te st code = 7593125330) Negative Negative Lab Interpretation (test cod e = 59454-5) Normal [facility] FOR GROUP [id number] 06:25:29* Test Item Value Reference Range Interpretation Comme nts Streptococcus pyogenes (grou p A) antigen (test code = 67212-0) Negative Negative Lab Interpretation (test cod e = 80301-7) Normal [facility] WO [id number] 02:36:34Normal CT headCT HEAD WO CONTRAST HISTORY: [...] paranasal air sinuses are clear.IMPRESSIONNormal CT head [facility] [id number] 01:54:00* Test Item Value Reference Range Interpretation Comme nts POCT PREG (test code = 1605) negative On board controls acceptable with C Line (test code = 3574) yes POCT PREG LOT # (test code = 3575) [id number] POCT PREG TEST DATE ( test code = 3576) 11/14/2020 Lab Interpretation (test cod e = 12723-1) Normal [facility] PELVIS2019-04-17 02:28:09AFTER HOURS SERVICE ON: 04/17/2019 2:23 AMPelvic UltrasoundLocation Code [id number]: [id number]: Disorder of ovaryTRANSABDOMINAL ScanTechnique: Longitudinal and transverse [...] THE ABDOMEN AND PELVIS WITHOUT CONTRASTDictation Location: [id number] HISTORY: 23-year-old with right upper quadrant painTECHNIQUE: [...] = WAUAM) NO NO CBC (INCLUDES AUTOMATED DIFFERENTIAL)*[id number] 23:48:00* Test Item Value Reference Range Interpretation [...]
[2023-12-27] MEDS ORDERED: ONDANSETRON 4 MG/2 ML VIAL ONE ×2 (15:48→19:43)
[2023-12-27] MEDS ORDERED: MORPHINE 4 MG/ML SYR ONE (15:49)
[2023-12-27] MEDS ORDERED: NA CHLORIDE 0.9% 1,000 ML ONE (15:50)
[2023-12-27 15:59] LABS: Absolute Basophils 0.1 K/uL (0-0.5); Absolute Eosinophils 0.1 K/uL (0-0.5); Absolute Lymphocytes (CBC) 1.5 K/uL (0.7-4.9); Absolute Monocytes 0.9 K/uL (0.1-1.3); Absolute Neutrophil 10.7 K/uL (1.8-8.0); Basophils % 0.6 % (0-1.3); Hematocrit 42.4 % (36.0-45.0); Hemoglobin 14.2 g/dL (12.0-15.0); Lymphocytes % 11.4 % (15.3-44.8); MCH 27.8 pg (27.0-35.0); MCHC 33.4 g/dL (32.0-36.0); MCV 83.1 fL (80-100); MPV 8.5 fL (7.6-11.3); Monocytes % 7.1 % (3.3-12.3); Neutrophils % 79.9 % (41.7-73.7); Platelets 310 thou/uL (152-406); Red Cell Distribution Width 13.9 % (12.1-15.2)
--- NOTE | 2023-12-27 16:04 | RAD REPORT ---
EXAM DESCRIPTION: US - Extremity Nonvascular Complete - 12/27/2023 3:09 pm CLINICAL HISTORY: Right groin abscess COMPARISON: None FINDINGS: 2 x 1 centimeter fluid collection is present within the right inguinal region. Surrounding increased vascularity present IMPRESSION: 2 x 1 centimeter fluid collection right inguinal region presumably abscess
[2023-12-27 16:07] LABS: PT Prothrombin Time 12.4 SECONDS (9.4-12.5); Protime INR 1.11
[2023-12-27 16:08] LABS: PTT, Activated Partial Thromb 37.5 SECONDS (24.3-36.9)
[2023-12-27 16:18] LABS: Albumin 3.6 g/dL (3.4-5.0); Albumin/Globulin Ratio 0.8 (1.1-1.8); Anion Gap 11.5 mEq/L (5.0-15.0); Bilirubin Total 1.2 mg/dL (0.2-1.0); Globulin 4.4 g/dL (2.3-3.5); Potassium 3.5 mEq/L (3.5-5.1)
[2023-12-27] MEDS ORDERED: LIDOCAINE 1% MPF 5 ML VIAL ONE ×2 (16:53→19:34)
[2023-12-27] MEDS ORDERED: CEPHALEXIN 250 MG CAP ONE (16:53)
[2023-12-27] MEDS ORDERED: SMZ./TMP. 800/160 MG TABLET ONE (16:54)
--- NOTE | 2023-12-27 17:50 | ER ---
Nurse's Notes [facility] Name: Omaira Richards Age: 28 yrs Sex: Female : 1995 Arrival Date: 12/27/2023 Time: 12:47 Bed 5 Private MD: Diagnosis: Cutaneous abscess of groin;Cellulitis of groin Presentation: 12/26 13:06 Chief complaint: Patient states: thinks there is an abscess along right lower abd area iw X 2 days, it's all red and draining. Coronavirus screen: At this time, the client does not indicate any symptoms associated with coronavirus-19. Ebola Screen: No symptoms or risks identified at this time. Initial Sepsis Screen: Does the patient meet any 2 criteria? HR > 90 bpm. Does the patient have a suspected source of infection?. Risk Assessment: Do you want to hurt yourself or someone else? Patient reports no desire to harm self or others. Onset of symptoms was December 25, 2023. 13:06 Method Of Arrival: Ambulatory iw 13:06 Acuity: LEWIS 3 iw Triage Assessment: 13:10 General: Appears uncomfortable, obese, Behavior is cooperative, appropriate for age, bp anxious. Pain: Complains of pain in abdomen. 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 - Infectious Disease History:: Denies. - Social history:: Smoking status: Reported history of juuling and/or vaping. Screenin:00 [facility] ED Fall Risk Assessment (Adult) History of falling in the last 3 months, bp including since admission No falls in past 3 months (0 pts) Confusion or Disorientation No (0 pts) Intoxicated or Sedated No (0 pts) Impaired Gait No (0 pts) Mobility Assist Device Used No (0 pt) Altered Elimination No (0 pt) Score/Fall Risk Level 0 - 2 = Low Risk. Abuse screen: Denies threats or abuse. Denies injuries from another. Nutritional screening: No deficits noted. Tuberculosis screening: No symptoms or risk factors identified. Assessment: 13:10 General: Appears uncomfortable, obese, Behavior is cooperative, appropriate for age, bp anxious. Pain: Complains of pain in abdomen. Neuro: No deficits noted. Cardiovascular: No deficits noted. Respiratory: No deficits noted. GI: No signs and/or symptoms were reported involving the gastrointestinal system. : No signs and/or symptoms were reported regarding the genitourinary system. EENT: No deficits noted. Derm: Abscess located on abdomen. Musculoskeletal: No deficits noted. 15:00 Reassessment: Patient appears in no apparent distress at this time. Patient is alert, bp oriented x 3, equal unlabored respirations, skin warm/dry/pink. 17:00 Reassessment: Patient appears in no apparent distress at this time. Patient is alert, bp oriented x 3, equal unlabored respirations, skin warm/dry/pink. 18:47 Reassessment: DISCHARGE CANCELLED, TO BE ADMITTED. ACTIVELY VOMITING, PROVIDER NOTIFIED.bp 19:50 Reassessment: Patient and/or family updated on plan of care and expected duration. Pain bm8 level reassessed. Patient is alert, oriented x 3, equal unlabored respirations, skin warm/dry/pink. Patient states feeling better. Reassessment: abscess currently being worked on by provider with ultrasound at bedside. General: Appears distressed, uncomfortable, Behavior is cooperative, appropriate for age, anxious. Pain: Complains of pain in groin Pain currently is 10 out of 10 on a pain scale. Neuro: No deficits noted. Level of Consciousness is awake, alert, obeys commands, Oriented to person, place, time, situation, Appropriate for age. Cardiovascular: No deficits noted. Capillary refill < 3 seconds in bilateral fingers toes Patient's skin is warm and dry. Respiratory: Airway is patent Respiratory effort is even, unlabored, Respiratory pattern is regular, symmetrical. GI: No signs and/or symptoms were reported involving the gastrointestinal system. : No signs and/or symptoms were reported regarding the genitourinary system. EENT: No deficits noted. Derm: Abscess located on groin. Musculoskeletal: No deficits noted. 21:11 Reassessment: Patient appears in no apparent distress at this time. Patient and/or bm8 family updated on plan of care and expected duration. Pain level reassessed. Patient is alert, oriented x 3, equal unlabored respirations, skin warm/dry/pink. Patient states feeling better. Patient states symptoms have improved. 23:03 Reassessment: Patient appears in no apparent distress at this time. Patient and/or bm8 family updated on plan of care and expected duration. Pain level reassessed. Patient is alert, oriented x 3, equal unlabored respirations, skin warm/dry/pink. Patient denies pain at this time. Patient states feeling better. Patient states symptoms have improved. Vital Signs: 13:06 BP 139 / 91; Pulse 96; Resp 16; Temp 97.2; Pulse Ox 95% on R/A; Weight 140.61 kg; bm8 Height 5 ft. 9 in. ; Pain 8/10; 15:30 BP 113 / 84; Pulse 82; Resp 15; Pulse Ox 100% ; bp 17:44 BP 130 / 92; Pulse 87; Resp 16; Pulse Ox 99% ; bp 18:47 BP 126 / 68; Pulse 92; Resp 16; Pulse Ox 96% ; bp 19:50 BP 136 / 84; Pulse 115; Resp 20; Temp 97.2; Pulse Ox 95% ; Pain 10/10; bm8 21:11 BP 130 / 92; Pulse 86; Resp 17; Temp 97.2; Pulse Ox 95% on 2 lpm NC; Pain 8/10; bm8 23:03 BP 123 / 65; Pulse 89; Resp 17; Temp 97.2; Pulse Ox 95% on R/A; Pain 0/10; bm8 13:06 Body Mass Index 45.78 (140.61 kg, 175.26 cm) bm8 13:06 Pain Scale: Adult bm8 19:50 Pain Scale: Adult bm8 21:11 Pain Scale: Adult bm8 23:03 Pain Scale: Adult bm8 [place] Score: 19:50 Eye Response: spontaneous(4). Motor Response: obeys commands(6). Verbal Response: bm8 oriented(5). Total: 15. 21:11 Eye Response: spontaneous(4). Motor Response: obeys commands(6). Verbal Response: bm8 oriented(5). Total: 15. 23:03 Eye Response: spontaneous(4). Motor Response: obeys commands(6). Verbal Response: bm8 oriented(5). Total: 15. ED Course: 12:49 Patient arrived in ED. mr 13:02 Estephania Marquez, KRISTINA [facility]. kb 13:02 Ian Ashley MD is Attending Physician. kb 13:07 Triage completed. iw 13:07 Arm band placed on. iw 14:32 Patient placed in an exam room, on a stretcher. ll1 14:53 Stanley Huang, RN is Primary Nurse. bp 15:00 Patient has correct armband on for positive identification. Bed in low position. Call bp light in reach. 15:11 Extremity Nonvascular Complete In Process Unspecified. EDMS 15:40 Initial lab(s) drawn, by me, sent to lab. First set of blood cultures drawn by me, bp Second set of blood cultures drawn by me. 15:45 Inserted saline lock: 20 gauge in right antecubital area, using aseptic technique. bp Blood collected. Flushed with 10 mL NS. 19:50 Client placed on continuous cardiac and pulse oximetry monitoring. NIBP monitoring bm8 applied. Pulse ox on. NIBP on. Door closed. Noise minimized. Warm blanket given. Pillow given. Verbal reassurance given. Head of bed elevated. 20:02 Prince Aguila MD is Hospitalizing Provider. kb 23:03 Provided Education on: need for admission. bm8 23:03 No provider procedures requiring assistance completed. Patient admitted, IV remains in bm8 place. 12/27 07:08 Report given to NICK Estrada. bm8 Administered Medications: 12/26 16:00 Drug: NS 0.9% IV 1000 ml IV at 1000 ml once Route: IV; Rate: 1000 ml; Site: right bp antecubital; 19:54 Follow up: Response: No adverse reaction; IV Status: Completed infusion; IV Intake: bm8 1000ml 16:01 Drug: morphine IVP or IV 4 mg IVP once over 4 mins Route: IVP; Infused Over: 4 mins; bp Site: right antecubital; 19:54 Follow up: Response: No adverse reaction bm8 16:01 Drug: Ondansetron IVP 4 mg IVP once; over 2 minutes Route: IVP; Site: right antecubital;bp 19:54 Follow up: Response: No adverse reaction bm8 17:05 Drug: Trimethoprim-Sulfamethoxazole PO (160 mg-800 mg (DS) 1 tablet PO once Route: PO; bp 19:54 Follow up: Response: No adverse reaction bm8 17:05 Drug: Cephalexin PO 500 mg PO once Route: PO; bp 19:54 Follow up: Response: No adverse reaction bm8 17:05 Drug: Lidocaine Infiltration (1 %) 1 vials 5 ml Infiltration once; to bedside Volume: 5 bp ml; Route: Infiltration; 19:54 Follow up: Response: No adverse reaction bm8 19:50 Drug: morphine IVP or IV 4 mg IVP once over 4 mins Route: IVP; Infused Over: 4 mins; bm8 Site: left antecubital; 22:04 Follow up: Response: No adverse reaction bm8 19:50 Drug: Ondansetron IVP 4 mg IVP once; over 2 minutes Route: IVP; Site: left antecubital; bm8 22:04 Follow up: Response: No adverse reaction bm8 21:11 Drug: Piperacillin-Tazobactam IVPB 3.375 grams IVPB once over 60 mins; (mix in NS 100 bm8 mL) Route: IVPB; Infused Over: 60 mins; Site: right antecubital; 22:04 Follow up: Response: No adverse reaction; IV Status: Completed infusion; IV Intake: bm8 100ml 21:11 Drug: Promethazine IVP 12.5 mg IVP once Route: IVP; Site: right antecubital; bm8 22:04 Follow up: Response: No adverse reaction bm8 21:11 Drug: fentaNYL (PF) IVP 50 mcg IVP once Route: IVP; Site: right antecubital; bm8 22:03 Follow up: Response: No adverse reaction bm8 22:04 Drug: vancoMYCIN IVPB 1 grams IVPB once over 2 hrs Route: IVPB; Infused Over: 2 hrs; bm8 Site: right antecubital; 23:05 Follow up: Response: No adverse reaction; IV Status: Completed infusion; IV Intake: bm8 250ml 12/27 03:29 CANCELLED (pt admittedd): morphineor iv 4 mg IVP once over 4 mins ha1 03:29 CANCELLED (pt admittedd): ondansetron 4 mg IVP once; over 2 minutes ha1 Medication: 12/26 19:50 VIS not applicable for this client. bm8 Intake: 19:54 IV: 1000ml; Total: 1000ml. bm8 22:04 IV: 100ml; Total: 1100ml. bm8 23:05 IV: 250ml; Total: 1350ml. bm8 Outcome: 17:49 Discharge ordered by . kb 20:02 Decision to Hospitalize by Provider. kb 23:03 Admitted to ER Hold. Please see [facility] for further documentation. bm8 23:03 Condition: stable 23:03 Instructed on the need for admit, Demonstrated understanding of instructions, 12/27 09:05 Admitted to Med/surg accompanied by nurse, via wheelchair, room 223, with chart, aa5 09:08 Patient left the ED. rs5 Signatures: Dispatcher [employer] EDMS Estephania Marquez, ELEMENTARY SCHO[employer] SCIENCE TEACHER-C [employer]LEMENTARY [employer]CHO[employer] SCIENCE TEACHER-Ckb Shirley Galindo, Reg Reg mr Claire Ballesteros, RN RN iw Natalie Llamas, RN RN aa5 Stanley Huang, RN RN bp Jayden Bishop, RN RN ll1 Andrew Larsen, RN RN rs5 Luis Eduardo Escobar RN RN bm8 Tracey Josue RN ha1 Corrections: (The following items were deleted from the chart) 12/26 13:07 13:07 PSHx: Cholecystectomy; iw iw 23:06 13:06 BP 139 / 91; Pulse 96bpm; Resp 16bpm; Pulse Ox 95% RA; Temp 97.2F; 140.61 kg; bm8 Height 5 ft. 9 in.; BMI: 45.7; Pain 8/10, Adult; iw
--- NOTE | 2023-12-27 17:50 | EDPHYS ---
Physician Documentation [facility] Name: Omaira Richards Age: 28 yrs Sex: Female : 1995 Arrival Date: 12/27/2023 Time: 12:47 Bed 5 Private MD: ED Physician Ian Ashley HPI: 12/26 13:09 This 28 yrs old Female presents to ER via Ambulatory with complaints of kb Abscess. 13:09 Pt is a 28 year old female who presents for abscess to right "bikini line" that started kb 2 days ago. States it started as a small bump and has gotten bigger. Today it was red and warm with surrounding redness. Denies fever. States she did vomit once last night due to pain. . 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 - Infectious Disease History:: Denies. - Social history:: Smoking status: Reported history of juuling and/or vaping. ROS: 13:09 Constitutional: As per HPI kb Exam: 13:10 Constitutional: This is a well developed, well nourished patient who is awake, alert, kb and in no acute distress. Head/Face: Normocephalic, atraumatic. ENT: Moist Mucous membranes Cardiovascular: Regular rate Respiratory: Respirations even and unlabored. No increased work of breathing. Talking in full sentences Abdomen/GI: Soft, non-tender. No distention Skin: Warm, dry with normal turgor. Normal color. MS/ Extremity: Pulses equal, no cyanosis. Neurovascular intact. Full, normal range of motion. Neuro: Awake and alert, GCS 15, oriented to person, place, time, and situation. Moves all extremities. Normal gait. 15:56 ECG was reviewed by the Attending Physician. kb 17:47 Skin: abscess, that is moderate sized, of the right inguinal area, with induration, kb with surrounding cellulitis, that is moderate, Vital Signs: 13:06 BP 139 / 91; Pulse 96; Resp 16; Temp 97.2; Pulse Ox 95% on R/A; Weight 140.61 kg; bm8 Height 5 ft. 9 in. ; Pain 8/10; 15:30 BP 113 / 84; Pulse 82; Resp 15; Pulse Ox 100% ; bp 17:44 BP 130 / 92; Pulse 87; Resp 16; Pulse Ox 99% ; bp 18:47 BP 126 / 68; Pulse 92; Resp 16; Pulse Ox 96% ; bp 19:50 BP 136 / 84; Pulse 115; Resp 20; Temp 97.2; Pulse Ox 95% ; Pain 10/10; bm8 21:11 BP 130 / 92; Pulse 86; Resp 17; Temp 97.2; Pulse Ox 95% on 2 lpm NC; Pain 8/10; bm8 23:03 BP 123 / 65; Pulse 89; Resp 17; Temp 97.2; Pulse Ox 95% on R/A; Pain 0/10; bm8 13:06 Body Mass Index 45.78 (140.61 kg, 175.26 cm) bm8 13:06 Pain Scale: Adult bm8 19:50 Pain Scale: Adult bm8 21:11 Pain Scale: Adult bm8 23:03 Pain Scale: Adult bm8 Newman Coma Score: 19:50 Eye Response: spontaneous(4). Motor Response: obeys commands(6). Verbal Response: bm8 oriented(5). Total: 15. 21:11 Eye Response: spontaneous(4). Motor Response: obeys commands(6). Verbal Response: bm8 oriented(5). Total: 15. 23:03 Eye Response: spontaneous(4). Motor Response: obeys commands(6). Verbal Response: bm8 oriented(5). Total: 15. Procedures: 17:47 I \\T\\ D: Incision and drainage was performed for an abscess of the right right inguinal kb area Prepped with Betadine, Anesthetized with 4 ml's 1% Lidocaine. Incised with #11 blade. Drained large amount purulent fluid. Packed with iodoform gauze, Dressing: sterile 4x4 gauze, the patient tolerated the procedure well. MDM: 13:02 Patient medically screened. kb 13:10 Differential diagnosis: abscess, allergic reaction, cellulitis, insect bite. Data kb reviewed: vital signs, nurses notes. 20:00 Consideration of Admission/Observation Patient was admitted/placed on observation. kb Escalation of care including admission/observation considered. Management of patient was discussed with the following: Hospitalist: Dr Aguila accepts pt for admission. Counseling: I had a detailed discussion with the patient and/or guardian regarding the historical points, exam findings, and any diagnostic results supporting the discharge/admit diagnosis, lab results, radiology results, the need for further work-up and treatment in the hospital. ED course: Pt began vomiting and is still having significant pain. Will admit. 12/26 14:42 Order name: Blood Culture Adult (2) kb 12/26 14:42 Order name: CBC with Diff; Complete Time: 16:33 kb 12/26 14:42 Order name: CMP; Complete Time: 16:19 kb 12/26 14:42 Order name: Lactate w/ 2H reflex if indic.; Complete Time: 16:17 kb 12/26 14:42 Order name: Protime (+inr); Complete Time: 16:13 kb 12/26 14:42 Order name: Ptt, Activated; Complete Time: 16:13 kb 12/27 01:41 Order name: Procalcitonin [facility] 12/27 01:48 Order name: Hemoglobin A1c [facility] 12/27 07:58 Order name: Glucose, Ancillary Testing [facility] 12/26 15:02 Order name: Extremity Nonvascular Complete; Complete Time: 16:13 [facility] 12/26 14:42 Order name: IV Saline Lock - Large Bore; Complete Time: 15:45 kb 12/26 14:42 Order name: Labs collected and sent; Complete Time: 15:45 kb 12/26 14:42 Order name: O2 Per Protocol; Complete Time: 15:45 kb 12/26 14:42 Order name: O2 Sat Monitoring; Complete Time: 15:45 kb 12/26 14:42 Order name: Vital Signs; Complete Time: 15:45 kb 12/26 16:43 Order name: I\\T\\D Setup; Complete Time: 17:05 kb EC:56 Rate is 88 beats/min. Rhythm is regular. QRS Johnson is Normal. NH interval is normal at kb 128 msec. QRS interval is normal at 90 msec. QT interval is normal at 425 msec. Administered Medications: 16:00 Drug: NS 0.9% IV 1000 ml IV at 1000 ml once Route: IV; Rate: 1000 ml; Site: right bp antecubital; 19:54 Follow up: Response: No adverse reaction; IV Status: Completed infusion; IV Intake: bm8 1000ml 16:01 Drug: morphine IVP or IV 4 mg IVP once over 4 mins Route: IVP; Infused Over: 4 mins; bp Site: right antecubital; 19:54 Follow up: Response: No adverse reaction bm8 16:01 Drug: Ondansetron IVP 4 mg IVP once; over 2 minutes Route: IVP; Site: right antecubital;bp 19:54 Follow up: Response: No adverse reaction bm8 17:05 Drug: Trimethoprim-Sulfamethoxazole PO (160 mg-800 mg (DS) 1 tablet PO once Route: PO; bp 19:54 Follow up: Response: No adverse reaction bm8 17:05 Drug: Cephalexin PO 500 mg PO once Route: PO; bp 19:54 Follow up: Response: No adverse reaction bm8 17:05 Drug: Lidocaine Infiltration (1 %) 1 vials 5 ml Infiltration once; to bedside Volume: 5 bp ml; Route: Infiltration; 19:54 Follow up: Response: No adverse reaction bm8 19:50 Drug: morphine IVP or IV 4 mg IVP once over 4 mins Route: IVP; Infused Over: 4 mins; bm8 Site: left antecubital; 22:04 Follow up: Response: No adverse reaction bm8 19:50 Drug: Ondansetron IVP 4 mg IVP once; over 2 minutes Route: IVP; Site: left antecubital; bm8 22:04 Follow up: Response: No adverse reaction bm8 21:11 Drug: Piperacillin-Tazobactam IVPB 3.375 grams IVPB once over 60 mins; (mix in NS 100 bm8 mL) Route: IVPB; Infused Over: 60 mins; Site: right antecubital; 22:04 Follow up: Response: No adverse reaction; IV Status: Completed infusion; IV Intake: bm8 100ml 21:11 Drug: Promethazine IVP 12.5 mg IVP once Route: IVP; Site: right antecubital; bm8 22:04 Follow up: Response: No adverse reaction bm8 21:11 Drug: fentaNYL (PF) IVP 50 mcg IVP once Route: IVP; Site: right antecubital; bm8 22:03 Follow up: Response: No adverse reaction bm8 22:04 Drug: vancoMYCIN IVPB 1 grams IVPB once over 2 hrs Route: IVPB; Infused Over: 2 hrs; bm8 Site: right antecubital; 23:05 Follow up: Response: No adverse reaction; IV Status: Completed infusion; IV Intake: bm8 250ml 12/27 03:29 CANCELLED (pt admittedd): morphineor iv 4 mg IVP once over 4 mins ha1 03:29 CANCELLED (pt admittedd): ondansetron 4 mg IVP once; over 2 minutes ha1 Disposition Summary: 12/27/23 20:02 Hospitalization Ordered Notes: Hospitalization Status: Inpatient Admission kb Provider: Prince cinthia Aguila Condition: Stable(12/27/23 20:02) kb Problem: new kb Symptoms: are unchanged kb Bed/Room Type: Standard kb Location: Telemetry/MedSurg (Inpatient)(12/28/23 07:47) iw Room Assignment: 223(12/28/23 07:47) iw Diagnosis - Cutaneous abscess of groin(12/27/23 20:02) kb - Cellulitis of groin kb Forms: - Medication Reconciliation Form kb - SBAR form kb - Leadership Thank You Letter kb Addendum: 12/30/2023 15:55 Co-signature as Attending Physician, Ian Ashley MD I agree with the assessment and c friend plan of care. Signatures: Dispatcher [employer] Estephania Lema, GAS PUMPING STATION HELPER-C GAS PUMPING STATION HELPER-Ckb Ian Ashley MD MD cha Williams, Irene, RN RN Stanley Huang, RN RN Purnima Gonzalez rv1 Ruel Alberto MD MD sp4 Luis Eduardo Escobar, RN RN bm8 Tracey Josue RN ha1 Corrections: (The following items were deleted from the chart) 12/26 13:07 13:07 PSHx: Cholecystectomy; iw iw 14:43 14:43 BLOOD CULTURE*+BA.LAB.BRZ ordered. EDMS EDMS 14:43 14:43 CBC+H.LAB.BRZ ordered. EDMS EDMS 14:43 14:43 COMPREHENSIVE METABOLIC PANEL+C.LAB.BRZ ordered. EDMS EDMS 14:43 14:43 LACTATE+C.LAB.BRZ ordered. EDMS EDMS 14:43 14:43 PROTIME (+INR)+COAG.LAB.BRZ ordered. EDMS EDMS 14:43 14:43 PTT, ACTIVATED+COAG.LAB.BRZ ordered. EDMS EDMS 15:02 14:43 Extrmty Nonvasular Limited+US.RAD.BRZ ordered. EDMS EDMS 18:57 17:49 Home kb kb 18:57 17:49 Stable kb kb 18:57 17:49 Cutaneous abscess of groin - right kb kb 20:00 17:48 Counseling: I had a detailed discussion with the patient and/or guardian kb regarding the historical points, exam findings, and any diagnostic results supporting the discharge/admit diagnosis, lab results, radiology results, the need for outpatient follow up, a family practitioner, a general surgeon, to return to the emergency department if symptoms worsen or persist or if there are any questions or concerns that arise at home, kb 20:00 17:48 Management of patient was discussed with the following: Dr Ashley recommends kb I\\T\\D with oral antibiotics. Pt given return precautions. kb 23: 20:02 Telemetry/MedSurg (Inpatient) kb rv1 23:10 20:02 kb rv1 12/27 03:29 03:12 morphine IVP or IV 4 mg IVP once over 4 mins ordered. sp4 ha1 03:29 03:12 Ondansetron IVP 4 mg IVP once; over 2 minutes ordered. sp4 ha1 07:47 12/26 23:10 [facility] ER HOLD rv1 iw 12/27 07:47 12/26 23:10 ERHOLD- rv1 iw
[2023-12-27] MEDS ORDERED: MORPHINE 2 MG/ML SYR ONE (19:43)
[2023-12-27] MEDS: PIPER TAZO 3.375 GM in NA CHLORIDE 0.9% 100 ML IV SCH (20:03)
--- NOTE | 2023-12-27 20:24 | P.HP ---
Certification for Inpatient Patient admitted to: Inpatient With expected LOS: >2 Midnights Practitioner: I am a practitioner with admitting privileges, knowledge of patient current condition, hospital course, and medical plan of care. Services: Services provided to patient in accordance with Admission requirements found in Title 42 Section 412.3 of the Code of Federal Regulations Patient History Date of Service: 12/27/23 Reason for admission: groin cellulitis/abscess History of Present Illness: Is a 28-year-old female with morbid obesity and no other past medical h istory. She presented to the ER complaining of right-sided groin pain ongoing for the past few days. Versus symptoms started with boil in the groin area. She tried to clean this herself. Unfortunately, it got progressively larger until he started self draining. She described the bloody purulence. Other associated symptoms include fever and chills. Patient had an I&D done by ER. Her WBC was 13. Her blood glucose 229. She does not have a history of diabetes mellitus. Physical Examination - Physical Exam General: Acute distress, Obese HEENT: Atraumatic, Normocephalic Respiratory: Clear to auscultation bilaterally, Normal air movement Neurological: Normal speech, Normal strength at 5/5 x4 extr - Studies Laboratory Data (last 24 hrs) 12/27/23 12/27/23 12/27/23 15:40 15:40 15:40 WBC 13.40 H Hgb 14.2 Hct 42.4 Plt Count 310 PT 12.4 INR 1.11 APTT 37.5 H Sodium 133 L Potassium 3.5 BUN 6 L Creatinine 0.77 Glucose 229 H Total Bilirubin 1.2 H AST 69 H ALT 187 H Alkaline Phosphatase 99 Assessment and Plan - Problems (Diagnosis) (1) Morbid obesity Current Visit: Yes Status: Acute (2) Cellulitis of groin, right Current Visit: Yes Status: Acute - Plan Assessment The patient is a 28-year-old female with morbid obesity currently being admitted with a groin cellulitis and abscess. She underwent I&D in the ER. Sepsis secondary to groin cellulitis and abscess Suspected new onset of diabetes mellitus Hyperglycemia Morbid obesity Plan: Admit inpatient Patient received a dose of Vanco and Zosyn in ER Will continue patient on IV clindamycin Follow blood and groin cultures Patient is full code Follow hemoglobin A1c - Advance Directives Does patient have a Living Will: No Does patient have a Durable POA for Healthcare: No
[2023-12-27] MEDS ORDERED: VANCOMYCIN 1 GM/VIAL ONE (20:48)
[2023-12-27] MEDS ORDERED: NA CHLORIDE 0.9% 250 ML ONE (20:48)
[2023-12-27] MEDS ORDERED: PIPERACIL/TAZO 3.375 GM VIAL IV ONE (20:49)
[2023-12-27] MEDS ORDERED: NA CHLORIDE 0.9% 100 ML ONE (20:49)
[2023-12-27] MEDS ORDERED: FENTANYL CITR 100 MCG/2 ML ONE (21:01)
[2023-12-27] MEDS ORDERED: PROMETHAZINE INJ 25 MG/ML AMP ONE (21:03)
[2023-12-28] MEDS ORDERED: CLINDAMYCIN 900MG/D5W 900 MG/50 ML IVPB IV ONE (00:48)
[2023-12-28] MEDS: CLINDAMYCIN 900MG/D5W 900 MG/50 ML IVPB IV SCH (01:00)
[2023-12-28] MEDS ORDERED: ONDANSETRON 4 MG/2 ML VIAL ONE (03:30)
[2023-12-28] MEDS ORDERED: HYDROMORPHONE HCL 2 MG/ML inj ONE (03:31)
[2023-12-28] MEDS: HYDROMORPHONE HCL 1 MG/ML INJ IV PRN (03:41)
[2023-12-28] MEDS: ONDANSETRON 4 MG/2 ML VIAL IV PRN (03:42)
--- NOTE | 2023-12-28 07:30 | P.PN ---
Date of Service: 12/28/23 Subjective: dealing with progressively worsening boil/mass for few days Draining bloody purulence at home. +painful underwent bedside I&D in ER +fever/chills at home. Afebrile since arrival to ER. ROS: 10 point ROS as noted above, otherwise negative Physical Exam: GEN: Alert, oriented, NAD HEENT: Normal conjunctiva, sclera anicteric CV: Regular rate and rhythm, no edema Pulm: Nonlabored respirations on RA, clear bilaterally ABD: Soft, nontender, nondistended Integumentary: R groin/mons pubis are with erythema and significant induration, small ~1cm incision site from I&D in ER with packing, very tender area Neuro: Normal speech, normal affect vitals reviewed Problem List Sepsis secondary to Right inguinal abscess/cellulitis, s/p I&D in ER Elevated LFTs, h/o fatty liver IDDM2 with hyperglycemia; new onset Obesity Sepsis secondary to Right inguinal abscess/cellulitis, s/p I&D in ER presents with worsening right groin pain for few days. +fever and chills at home. Started as a boil in groin area that progressively got larger until it started draining bloody purulence. Denies prior skin infections. u/s (12/26): 2x1cm presumed abscess right inguinal region. s/p bedside I&D in ER small incision, with significant tenderness and induration suspect will need further surgical eval/ drainage CT pelvis ordered to further eval Dr. Huertas, General surgery, consulted to eval NPO for now until eval by surgery continue empiric clindamycin (12/27-) given bactrim, cephalexin, zosyn, vanc in ED afebrile, +leukocytosis follow blood cultures pain control local wound care Elevated LFTs, h/o fatty liver T. bili 1.2 / AST 69 / ALT 187 ?possible reactive from infxn Daily labs. Continue to monitor IDDM2 with hyperglycemia; new onset a1c 10.6 denies prior history of diabetes anticipate will need insulin on dc pt states she does not have insurance - will cover with 70/30 and titrate as needed Start accu-cheks, SSI Obesity Weight loss advised. VTE: ambulatory Code: Full Dispo: Home, 2-3 days Time Spent Managing Pts Care (In Minutes): 51
[2023-12-28 09:59] LABS: Absolute Basophils 0.1 K/uL (0-0.5); Absolute Eosinophils 0.1 K/uL (0-0.5); Absolute Lymphocytes (CBC) 1.8 K/uL (0.7-4.9); Absolute Monocytes 1.3 K/uL (0.1-1.3); Absolute Neutrophil 11.4 K/uL (1.8-8.0); Basophils % 0.8 % (0-1.3); Eosinophils % 0.4 % (0-4.4); Hematocrit 36.6 % (36.0-45.0); Hemoglobin 12.5 g/dL (12.0-15.0); Lymphocytes % 12.2 % (15.3-44.8); MCH 28.3 pg (27.0-35.0); MCV 83.1 fL (80-100); MPV 8.3 fL (7.6-11.3); Neutrophils % 77.6 % (41.7-73.7); Nucleated Red Blood Cells % 0.1 % (0-0); Platelets 303 thou/uL (152-406); RBC Red Blood Cell Count 4.41 M/uL (3.86-4.86); Red Cell Distribution Width 13.8 % (12.1-15.2)
[2023-12-28 10:18] LABS: Albumin 3.1 g/dL (3.4-5.0); Albumin/Globulin Ratio 0.8 (1.1-1.8); Anion Gap 9.4 mEq/L (5.0-15.0); Bilirubin Total 1.6 mg/dL (0.2-1.0); Magnesium 1.6 mg/dL (1.6-2.4); Potassium 3.4 mEq/L (3.5-5.1); Protein, Total 7.1 g/dL (6.4-8.2)
--- NOTE | 2023-12-28 11:50 | RAD REPORT ---
EXAMINATION: CT ABDOMEN WITHOUT CONTRAST CLINICAL INDICATION: Female, 28 years old. Right inguinal abscess TECHNIQUE: CT pelvis was performed, without IV contrast, as per department protocol. Axial, sagittal and coronal reconstructions were obtained. One or more of the following dose reduction techniques were used: Automated exposure control, adjustment of the mA and/or kV according to patient size, and/ or iterative reconstruction. Unless otherwise specified, incidental findings do not require dedicated imaging follow-up. [id number]. IV CONTRAST: Not administered. COMPARISON: No prior exam. FINDINGS: The lack of intravenous contrast limits the sensitivity of this exam for evaluation of solid visceral organs, vascular structures, and retroperitoneum. KIDNEYS AND URETERS: Incompletely imaged GASTROINTESTINAL TRACT: Stomach is non-dilated. Small bowel has normal course and caliber. No colonic wall thickening or pericolonic inflammatory changes. LYMPH NODES: No lymphadenopathy. ABDOMINAL AORTA AND OTHER VESSELS: Normal caliber aorta and IVC. MUSCULOSKELETAL: Skin thickening is sees edema at the mons pubis and right umbilical region. Soft tis tex gas located in the subcutaneous tissues without discrete fluid collection. Gas is in a linear configuration and not disseminated. ADDITIONAL FINDINGS: None. IMPRESSION: Skin thickening and subcutaneous emphysema at the mons pubis and right inguinal region may reflect a cellulitis. Linear tract of gas within the subcutis tissues probably from recent interpretation. No abscess identified. No disseminated gas identified to suggest necrotizing fasciitis. The inflammatory changes are confined to the subcutaneous tissues.
[2023-12-28] MEDS: NA CHLORIDE 0.9% 0 ML ONE (15:26)
[2023-12-28 15:52] LABS: Specific Gravity 1.026 (1.005-1.030)
--- NOTE | 2023-12-28 16:23 | EKG ---
Test Date: 2023-12-27 Test Time: 15:52:34 Residential Property Tax Appraiser: ANNELIESE MEASUREMENT RESULTS: Intervals: Rate: 88 VA: 128 QRSD: 90 QT: 352 QTc: 425 Branch: P: 23 VA: 128 QRS: 33 T: 12 INTERPRETIVE STATEMENTS: Normal sinus rhythm Normal ECG Compared to ECG 05/29/2023 10:13:58 Sinus arrhythmia no longer present Electronically Signed On 12-28-23 16:21:18 CDT by Juan Pablo Mckenzie
[2023-12-28] MEDS: SUCCINYLCHOLINE 20 MG/ML (10 ML) IV ONE (16:52)
[2023-12-28] MEDS ORDERED: FENTANYL CITR 100 MCG/2 ML ONE (17:04)
[2023-12-28] MEDS ORDERED: MIDAZOLAM HCL 2 MG/2 ML INJ ONE (17:04)
[2023-12-28] MEDS ORDERED: propofoL 200 MG/20 ML VIAL IV ONE (17:04)
--- NOTE | 2023-12-28 17:12 | P.CNS ---
Date of Consult: 12/28/23 PC: I was asked to see this 28-year-old female in regards to a abscess in her right groin. HPC: This patient, has had pain and tenderness in the right groin/mons area for the last few days. It seemed to formed a boil. It was draining but not improving. She came to the emergency room. An I&D in the ER was done, but the patient more requires more surgical debridement. PSHx: Negative PMHx: Patient just found out she is prediabetic Social Hx: No known allergies Sys R: No cough, wheeze, shortness of breath. No chest pain or palpitations. Denies urinary complaints O/E: Awake alert vital signs are stable HEENT: Negative Chest: Air entry equal bilaterally Abd: Over the lower right groin area, and months there is marked redness and induration compared to the other side. [place]: Intact Data: CT scan demonstrates abscess with a lot of surrounding edema/fluid Impression: Abscess of the right groin requiring further debridement Plan: I will take the operating room for incision, drainage, sharp debridement of this abscess in her right groin. The risks of this procedure have been discussed. The possibility of bleeding, infection, the need to make a wide incision due to the nature of the infection to get it adequately controlled. Scar formation and contracture were explained. She understands and wants us to proceed.
--- NOTE | 2023-12-28 17:57 | P.OP ---
Preoperative diagnosis: Abscess of the right groin/mons Postoperative diagnosis: The same Primary procedure: Incision, drainage, and sharp debridement of abscess of the right groin and Anesthesia: General Estimated blood loss: Less than 20 cc Specimen: Cultures both aerobic and anaerobic were retaken Operative Technique: The patient brought the operating room and placed supine on the table. After the induction of adequate general anesthesia, the area of the lower abdomen and perineal area was then prepped with a Betadine solution, she was draped in the usual aseptic manner. Attention was turned towards the area of the mons. The area between the lower skin crease and the midline down to the groin crease is hard and firm indurated and red throughout. On the lateral aspect where a small skin incision had been made in the ER to open this up, this was widened to about an inch and a half. We were now able to place a finger inside this wound. We immediately countered watery dishwater like drainage. Cultures both anaerobic and aerobic were immediately taken. Finger was now passed down through this towards the midline. We could feel the area was edematous, and these loculations were broken down. The draining fluid was now aspirated using the Yankauer suction. By placing the Yankauer suction into the depths of our wounds and bring it up towards the midline we could make a counterincision. This was now brought down to the other probing finger on the other side. Using a hemostat we were able to connect the 2 incisions. This allowed us to now break down all the loculations and remove the necrotic debris with a cutting surgical curette and an 11 blade. This having been done, a 1 inch Reagan drain was brought in through the medial aspect and passed out laterally. This drain was now tied on itself to keep it open and draining during the postoperative period. After having brought down the loculations, on manipulation of this area it is soft, and already shows some resolution of the wound skin like appearance that initially the patient had prior to our incisions. Having established adequate drainage, and then a surgical debridement, a sterile dressing was now applied. At the end of the procedure she was stable and sent to the recovery room. Needle sponge instrument count were correct. Drain(s): Other (1 inch [place] drain) Transferred to: Recovery Room Condition: Good
[2023-12-28] MEDS: ONDANSETRON 4 MG/2 ML VIAL ONE (18:12)
[2023-12-28] MEDS: KETOROLAC 30 MG/ML INJ ONE (18:15)
[2023-12-29] MEDS: NA CHLORIDE 0.9% 500 ML IV ONE (01:18)
[2023-12-29] MEDS: HYDROCODONE/APAP 5/325 MG TAB PO PRN (03:50)
[2023-12-29 07:04] LABS: Absolute Basophils 0.1 K/uL (0-0.5); Absolute Eosinophils 0.2 K/uL (0-0.5); Absolute Lymphocytes (CBC) 1.7 K/uL (0.7-4.9); Absolute Monocytes 1.1 K/uL (0.1-1.3); Absolute Neutrophil 10.4 K/uL (1.8-8.0); Basophils % 0.5 % (0-1.3); Eosinophils % 1.4 % (0-4.4); Hematocrit 35.6 % (36.0-45.0); Hemoglobin 11.8 g/dL (12.0-15.0); Lymphocytes % 12.7 % (15.3-44.8); MCH 27.6 pg (27.0-35.0); MCV 83.7 fL (80-100); MPV 8.6 fL (7.6-11.3); Monocytes % 7.9 % (3.3-12.3); Neutrophils % 77.5 % (41.7-73.7); Platelets 248 thou/uL (152-406); RBC Red Blood Cell Count 4.25 M/uL (3.86-4.86); Red Cell Distribution Width 13.8 % (12.1-15.2)
[2023-12-29] MEDS ORDERED: D10W 125 ML IV PRN (07:24)
[2023-12-29] MEDS ORDERED: GLUCAGON 1 MG/VIAL IM PRN (07:24)
[2023-12-29 07:30] LABS: Albumin 2.7 g/dL (3.4-5.0); Albumin/Globulin Ratio 0.7 (1.1-1.8); Anion Gap 8.4 mEq/L (5.0-15.0); Bilirubin Total 1.1 mg/dL (0.2-1.0); Globulin 4.1 g/dL (2.3-3.5); Magnesium 1.7 mg/dL (1.6-2.4); Potassium 3.4 mEq/L (3.5-5.1); Protein, Total 6.8 g/dL (6.4-8.2)
[2023-12-29] MEDS: INSULIN REGULAR (HUMAN) 100 UNIT/ML SQ SCH (08:49)
--- NOTE | 2023-12-29 11:02 | P.PN ---
Date of Service: 12/29/23 Subjective: nauseous after eating breakfast this morning. +tenderness; but improving otherwise feeling better overall afebrile ROS: 10 point ROS as noted above, otherwise negative Physical Exam: GEN: Alert, oriented, NAD CV: Regular rate and rhythm, no edema Pulm: Nonlabored respirations on RA, clear bilaterally ABD: Soft, nontender, nondistended Integumentary: R groin/mons pubis area with dressing in place Neuro: Normal speech, normal affect vitals reviewed Problem List Sepsis secondary to Right inguinal abscess/cellulitis, s/p I&D (12/27) Elevated LFTs, h/o fatty liver IDDM2 with hyperglycemia; new onset Obesity Sepsis secondary to Right inguinal abscess/cellulitis, s/p I&D (12/27) presents with worsening right groin pain for few days. +fever and chills at home. Started as a boil in groin area that progressively got larger until it started draining bloody purulence. Denies prior skin infections. u/s (12/26): 2x1cm presumed abscess right inguinal region. CT pelvis (12/27): skin and subq emphysema at the mons pubis and right inguinal region may reflect cellulitis. s/p bedside I&D in ER Dr. Huertas is following s/p further I&D in OR (12/27) [address] will need to follow up outpatient for continued management/wound care. continue empiric clindamycin (12/27-) afebrile, +leukocytosis improving follow blood and wound cultures ID consulted, add cipro pain control local wound care. Elevated LFTs, h/o fatty liver T. bili 1.2 / AST 69 / ALT 187 secondary to fatty liver vs reactive to infxn Daily labs - Improving. IDDM2 with hyperglycemia; new onset a1c 10.6 denies prior history of diabetes anticipate will need insulin on dc pt states she does not have insurance - will cover with 70/30 and titrate as needed accu-cheks, SSI Obesity Weight loss advised. VTE: SCD Code: Full Dispo: Home, 2 days Time Spent Managing Pts Care (In Minutes): 41
--- NOTE | 2023-12-29 13:09 | CON ---
History Of Present Illness: Omaira Richards is a 28-year-old female, newly diagnosed diabetes mellitus with hemoglobin A1c of 10, coming in with groin abscess which has been I and D'ed by the surgical team yesterday with CLARKE drain in place. The patient's symptoms started 2 to 3 days ago. She gets these type of hair follicle infection often, but this is the first time it has turned into an abscess. Past Medical History: As per HPI. Social History: Nonsmoker, nondrinker. 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 Family History: Noncontributory. Medications: Currently getting clindamycin IV. See MAR for other medications. Allergies: NO KNOWN DRUG ALLERGIES. Review of Systems: A 10-point review was performed. Physical Examination: General: This is a 28-year-old female, lying in bed, not in any acute cardiopulmonary distress except groin pain. Vital Signs: Temperature 97, pulse 71, respirations 16, blood pressure 101/55. HEENT: Unremarkable. Neck: Supple. Lungs: Clear to auscultation. Heart: S1, S2. Regular. Abdomen: Soft, nontender. Bowel sounds present. Extremities: No edema except groin area with tenderness and erythematous changes. CLARKE drain in place. Laboratory Data: Shows WBC 13.5, hemoglobin 11.8, platelets are 248. Chemistry shows BUN of 9, creatinine 0.6, sugar is 209. CT of the pelvis region showed the patient has a linear track of subcutaneous tissue, probably with no abscess was identified. No gas identified. Micro data, blood cultures negative for 24 hours. Wound cultures are growing gram-positive cocci in pairs and chains. Assessment And Plan: Growing abscess secondary to hair follicle infection. We will recommend in a 28-year-old female with recently diagnosed diabetes mellitus, A1c of 10. Recommend to start the patient on cefazolin 2 g q.8 hours. Stop clindamycin. Education regarding diabetes mellitus was also given to the patient. Recommendation of weight loss for long-term cure is also suggested. Thank you, Dr. Jones, for consult. NF/ELENAL Voice ID: [id number] Report ID: [id number] [facility] HOSPITALMayelin
--- NOTE | 2023-12-29 14:02 | P.PN ---
Date of Service: 12/29/23 S: Patient feels better today, says there is less painful. Able to change her bandages. O: Area soft today, has good drainage. A: Appears to have adequate drainage down to that area of the right mons. Patient is afebrile. Mental orientation much better. Awaiting the cultures to come back, on clindamycin at the moment. P: Patient much improved since having undergone a wider incision and drainage of the abscess in her right groin/mons area. Infectious disease have been consulted. Awaiting cultures. On antibiotics and showing improvement.
[2023-12-29] MEDS: NA CHLORIDE 0.9% 1,000 ML IV SCH (15:34)
[2023-12-29] MEDS: CIPROFLOXACIN 400mg IV 400 MG/200 ML BAG IV SCH (20:37)
[2023-12-30 04:38] LABS: Absolute Basophils 0.1 K/uL (0-0.5); Absolute Eosinophils 0.3 K/uL (0-0.5); Absolute Lymphocytes (CBC) 1.9 K/uL (0.7-4.9); Absolute Monocytes 0.8 K/uL (0.1-1.3); Absolute Neutrophil 6.8 K/uL (1.8-8.0); Basophils % 0.8 % (0-1.3); Eosinophils % 3.2 % (0-4.4); Hematocrit 33.5 % (36.0-45.0); Hemoglobin 11.6 g/dL (12.0-15.0); Lymphocytes % 19.1 % (15.3-44.8); MCH 28.7 pg (27.0-35.0); MCHC 34.5 g/dL (32.0-36.0); MCV 83.2 fL (80-100); MPV 8.5 fL (7.6-11.3); Monocytes % 7.8 % (3.3-12.3); Neutrophils % 69.1 % (41.7-73.7); Nucleated Red Blood Cells % 0.2 % (0-0); Platelets 271 thou/uL (152-406); RBC Red Blood Cell Count 4.03 M/uL (3.86-4.86); Red Cell Distribution Width 13.6 % (12.1-15.2)
[2023-12-30 04:51] LABS: Albumin 2.6 g/dL (3.4-5.0); Albumin/Globulin Ratio 0.7 (1.1-1.8); Anion Gap 10.4 mEq/L (5.0-15.0); Bilirubin Total 0.7 mg/dL (0.2-1.0); Globulin 3.9 g/dL (2.3-3.5); Magnesium 1.7 mg/dL (1.6-2.4); Potassium 3.4 mEq/L (3.5-5.1); Protein, Total 6.5 g/dL (6.4-8.2)
[2023-12-30] MEDS: POTASSIUM CL SA 10 MEQ TAB PO ONE (08:40)
[2023-12-30] MEDS: MAGNESIUM SULFATE 1 gm IVPB 1 GM/100 ML BAG IV ONE (10:46)
--- NOTE | 2023-12-30 11:10 | P.PN ---
Date of Service: 12/30/23 Subjective: continues with intractable nausea / vomiting; ~same as yesterday reports inability to tolerate PO intake since shortly after admission otherwise doing okay afebrile ROS: 10 point ROS as noted above, otherwise negative Physical Exam: GEN: Alert, oriented, NAD CV: Regular rate and rhythm, no edema Pulm: Nonlabored respirations on RA, clear bilaterally ABD: Soft, nontender, nondistended Integumentary: R mons pubis area with dressing in place, induration and erythema (improved) alejandra drain in place Neuro: Normal speech, normal affect vitals reviewed Problem List Sepsis secondary to Right inguinal abscess/cellulitis, s/p I&D (12/27) Intractable nausea / vomiting Elevated LFTs, h/o fatty liver IDDM2 with hyperglycemia; new onset Obesity Sepsis secondary to Right inguinal abscess/cellulitis, s/p I&D (12/27) presents with worsening right groin pain for few days. +fever and chills at home. Started as a boil in groin area that progressively got larger until it sta rted draining bloody purulence. Denies prior skin infections. u/s (12/26): 2x1cm abscess right inguinal region. CT pelvis (12/27): skin and subq emphysema at the mons pubis and right inguinal region may reflect cellulitis. s/p bedside I&D in ER Dr. Huertas is following s/p further I&D in OR (12/27) [address] will need to follow up outpatient for continued management/wound care. continue ciprofloxacin (12/28-) switch IV Clindamycin (12/27-12/28) to IV cefazolin (12/29-) d/t suspected reaction to abx (n/v) Blood cx (12/26): NGTD wound cx (12/27): pending afebrile, leukocytosis resolved ID consulted Intractable nausea / vomiting reports inability to tolerate PO intake since shortly after admission suspect possibly medication induced secondary to clindamycin switch clindamycin to cefazolin monitor closely Elevated LFTs, h/o fatty liver T. bili 1.2 / AST 69 / ALT 187 secondary to fatty liver vs reactive to infxn Daily labs IDDM2 with hyperglycemia; new onset a1c 10.6 denies prior history of diabetes anticipate will need insulin on dc pt states she does not have insurance - will cover with 70/30 and titrate as needed accu-cheks, SSI Obesity Weight loss advised. VTE: SCD Code: Full Dispo: Home, 2 days Able to tolerate PO intake, nausea/vomiting improve Time Spent Managing Pts Care (In Minutes): 41
[2023-12-30] MEDS: CEFAZOLIN SODIUM 2 GM in NA CHLORIDE 0.9% 100 ML IVPB SCH (12:24)
[2023-12-30] MEDS: DIPHENHYDRAMINE 50 MG/ML VIAL IV ONE (14:03)
[2023-12-30] MEDS: METRONIDAZOLE 500mg IVPB 500 MG/100 ML BAG IV SCH (17:10)
[2023-12-30 20:28] VITALS: BMI 30.4
[2023-12-30 22:47] VITALS: O2SAT 98
[2023-12-31 06:36] LABS: Absolute Basophils 0.1 K/uL (0-0.5); Absolute Eosinophils 0.4 K/uL (0-0.5); Absolute Lymphocytes (CBC) 1.8 K/uL (0.7-4.9); Absolute Monocytes 0.7 K/uL (0.1-1.3); Basophils % 0.8 % (0-1.3); Hematocrit 34.1 % (36.0-45.0); Hemoglobin 11.3 g/dL (12.0-15.0); Lymphocytes % 22.4 % (15.3-44.8); MCH 27.7 pg (27.0-35.0); MPV 8.6 fL (7.6-11.3); Monocytes % 8.4 % (3.3-12.3); Neutrophils % 63.4 % (41.7-73.7); Platelets 298 thou/uL (152-406); RBC Red Blood Cell Count 4.06 M/uL (3.86-4.86); Red Cell Distribution Width 13.6 % (12.1-15.2)
[2023-12-31 06:50] LABS: Albumin 2.4 g/dL (3.4-5.0); Albumin/Globulin Ratio 0.6 (1.1-1.8); Bilirubin Total 0.5 mg/dL (0.2-1.0); Protein, Total 6.4 g/dL (6.4-8.2)
--- NOTE | 2023-12-31 10:35 | P.PN ---
Date of Service: 12/31/23 Subjective: Feeling a little better overal today developed facial hives after administration of cefazolin yesterday [place] some mild nausea yesterday. Tolerated all meds today without any reported issues afebrile ROS: 10 point ROS as noted above, otherwise negative Physical Exam: GEN: Alert, oriented, NAD CV: Regular rate and rhythm, no edema Pulm: Nonlabored respirations on RA, clear bilaterally ABD: Soft, nontender, nondistended Integumentary: R mons pubis area with dressing in place, mild induration and erythema (improved) alejandra drain in place vitals reviewed Problem List Sepsis secondary to Right inguinal abscess/cellulitis, s/p I&D (12/27) Intractable nausea / vomiting Elevated LFTs, h/o fatty liver IDDM2 with hyperglycemia; new onset Obesity Sepsis secondary to Right inguinal abscess/cellulitis, s/p I&D (12/27) presents with worsening right groin pain for few days. +fever and chills at home. Started as a boil in groin area that progressively got larger until it s tarted draining bloody purulence. Denies prior skin infections. u/s (12/26): 2x1cm abscess right inguinal region. CT pelvis (12/27): skin and subq emphysema at the mons pubis and right inguinal region may reflect cellulitis. s/p bedside I&D in ER Dr. Huertas is following s/p further I&D in OR (12/27) [address] will need to follow up outpatient for continued management/wound care. IV Clindamycin (12/27-12/28) switched to IV cefazolin (12/29) d/t suspected reaction to abx (n/v) IV cefazolin switched to flagyl (12/29) d/t suspected reaction (itchy/hives) switch ciprofloxacin to IV levofloxacin given culture results (12/30-) continue IV levaquin (12/30-) and IV flagyl (12/29-) Blood cx (12/26): NGTD wound cx (12/27): Enterococcus Faecalis afebrile, leukocytosis resolved 12/28 ID consulted Intractable nausea / vomiting reports inability to tolerate PO intake since shortly after admission suspect possibly medication induced secondary to clindamycin nausea/vomiting improved. Tolerated meds today without issues. monitor closely. Elevated LFTs, h/o fatty liver T. bili 1.2 / AST 69 / ALT 187 secondary to fatty liver vs reactive to infxn Daily labs - improving IDDM2 with hyperglycemia; new onset a1c 10.6 denies prior history of diabetes anticipate will need insulin on dc pt states she does not have insurance - will cover with 70/30 and titrate as needed accu-cheks, SSI Obesity Weight loss advised. VTE: SCD Code: Full Dispo: Home, 1-2 days Able to tolerate PO intake, nausea/vomiting improve Time Spent Managing Pts Care (In Minutes): 41
[2023-12-31] MEDS: Levofloxacin 750mg IV 750 MG/150 ML BAG IV SCH (11:17)
[2024-01-01 05:03] LABS: Absolute Basophils 0.1 K/uL (0-0.5); Absolute Eosinophils 0.4 K/uL (0-0.5); Absolute Lymphocytes (CBC) 1.6 K/uL (0.7-4.9); Absolute Monocytes 0.8 K/uL (0.1-1.3); Absolute Neutrophil 6.5 K/uL (1.8-8.0); Basophils % 0.7 % (0-1.3); Eosinophils % 4.7 % (0-4.4); Hematocrit 35.2 % (36.0-45.0); Hemoglobin 11.9 g/dL (12.0-15.0); MCH 28.2 pg (27.0-35.0); MCHC 33.7 g/dL (32.0-36.0); MCV 83.5 fL (80-100); MPV 8.2 fL (7.6-11.3); Monocytes % 8.9 % (3.3-12.3); Neutrophils % 68.7 % (41.7-73.7); Platelets 350 thou/uL (152-406); RBC Red Blood Cell Count 4.21 M/uL (3.86-4.86); Red Cell Distribution Width 13.7 % (12.1-15.2)
[2024-01-01 05:04] LABS: Anion Gap 9.8 mEq/L (5.0-15.0); Magnesium 1.8 mg/dL (1.6-2.4); Potassium 3.8 mEq/L (3.5-5.1)
[2024-01-01] MEDS: FLUCONAZOLE 100 MG TAB PO ONE (12:14)
[2024-01-01 12:52] VITALS: BP 114/66; TEMP 97.5
--- NOTE | 2024-01-01 14:44 | P.PN ---
Date of Service: 01/01/24 S: Patient feels better today, anxious to go home. Minimal pain and discomfort. Happy with the result. O: Areas a lot less inflamed, still has some mild firmness to the area but much improved. No drainage on dressings. A: Patient is much improved, surgical site is clean, no need for further drain. P: Jimmy-Cody drain was removed. Wound is clean. Patient may be discharged. She has my phone number should she have any questions or problems, and she will call my office to come see me next Monday at 10 AM. She can return to the emergency room as well.
== END 2024-01-01 15:17 | disposition home or self-care (01) | DRG 854 ==
LOC: ER 12:47 → ERHOLD 20:02 → 2ND 12-28 08:00
PROVIDERS: ADMIT Internal Medicine; ATTEND Hospitalist
PROC: 0JBC0ZZ Excision of Pelvic Region Subcutaneous Tissue and Fascia, Open Approach (ICD-10-PCS; principal; 2023-12-28 16:00)
DX: A41.9 Sepsis, unspecified organism (principal); L02.214 Cutaneous abscess of groin; L03.314 Cellulitis of groin; Z68.42 Body mass index [BMI] 45.0-49.9, adult; E66.01 Morbid (severe) obesity due to excess calories; E11.65 Type 2 diabetes mellitus with hyperglycemia; K76.0 Fatty (change of) liver, not elsewhere classified; B95.2 Enterococcus as the cause of diseases classified elsewhere; R79.89 Other specified abnormal findings of blood chemistry; R11.2 Nausea with vomiting, unspecified; T36.8X5A Adverse effect of other systemic antibiotics, initial encounter; Z90.49 Acquired absence of other specified parts of digestive tract; Z90.721 Acquired absence of ovaries, unilateral
CPT/HCPCS: 36415; 72192; 76881; 80048; 80053; 81025; 82947; 83036; 83605; 83735; 84145; 85025; 85610; 85730; 87040; 87070; 87075; 87077; 87186; 87205; 93005; 94010; 99285; J0744; J1170; J1200; J2001; J2250; J2270; J2405; J2543; J2550; J2704; J3010; J3475; J7030; J7040; J7050